=== PATIENT | female | born 1950 | race Caucasian/White ===

== ENCOUNTER → 2016-07-03 | Outpatient (CLI) | payer OTHER ==
[~2016-07-03] MED LIST: ACET-1138 PO; ACT/30 PO; ASPEC325 PO; ATEN50TA PO; FOLI1TAB7 PO; FRRG PO; FURO-85 PO; GLIM4TAB PO; LEVO125T5 PO; LSN/2025 PO; PANT1TAB48 PO; POTA20TA16 PO; RXC5 PO; VITAMIN B12 PO; VITAMIN B6 PO; immodium PO
[2016-07-03 12:07] LABS: HEMATOCRIT 45.6 % (37-47); MEAN CELL VOLUME 89.4 fL (80-100); MEAN CORPUSCULAR HGB CONC 32.5 g/dl (32-36); MEAN PLATELET VOLUME 9.4 fL (7.4-10.4); PLATELET COUNT 300 K/uL (130-400); WHITE BLOOD COUNT 9.41 K/uL (4.8-10.8)
[2016-07-03 12:19] LABS: ESTIMATED AVERAGE GLUCOSE 183 mg/dl; HA1C FLAG Normal (Normal)
[2016-07-03 12:36] LABS: ALT/SGPT 24 U/L (12-78); AST/SGOT 18 U/L (15-37); BLOOD UREA NITROGEN 20 mg/dl (7-18); BUN/CREATININE RATIO 20.4 (10-20); CALCIUM 9.3 mg/dl (8.5-10.1); CARBON DIOXIDE 28 mmol/L (21-32); CHLORIDE 106 mmol/L (98-107); GLUCOSE 183 mg/dl (70-99); POTASSIUM 4.4 mmol/L (3.5-5.1); SODIUM 141 mmol/L (136-145)
[2016-07-03 12:46] LABS: ALB/GLOB RATIO 0.8 (0.9-2); ALKALINE PHOSPHATASE 123 U/L (45-117)
== END | disposition home or self-care (01) ==
LOC: C.LAB1850 10:18
PROVIDERS: ATTEND Internal Medicine
DX: I10 Essential (primary) hypertension (principal); E03.9 Hypothyroidism, unspecified; E87.6 Hypokalemia; D64.9 Anemia, unspecified; E11.65 Type 2 diabetes mellitus with hyperglycemia

== ENCOUNTER → 2016-09-14 | Outpatient (CLI) | payer OTHER ==
[~2016-09-14] MED LIST changes: +LEVO125T4 PO; -LEVO125T5 PO
== END | disposition home or self-care (01) ==
LOC: C.LAB1850 16:30
PROVIDERS: ATTEND Internal Medicine
DX: M10.9 Gout, unspecified (principal)

== ENCOUNTER → 2016-11-24 | Outpatient (CLI) | payer OTHER ==
[2016-11-24 12:30] LABS: HEMATOCRIT 43.8 % (37-47); MEAN CELL VOLUME 86.2 fL (80-100); MEAN CORPUSCULAR HEMOGLOBIN 30.1 pg (25-34); MEAN CORPUSCULAR HGB CONC 34.9 g/dl (32-36); MEAN PLATELET VOLUME 9.6 fL (7.4-10.4); PLATELET COUNT 304 K/uL (130-400); RED BLOOD COUNT 5.08 M/uL (4.2-5.4); WHITE BLOOD COUNT 9.69 K/uL (4.8-10.8)
[2016-11-24 12:45] LABS: ESTIMATED AVERAGE GLUCOSE 197 mg/dl; HA1C FLAG Normal (Normal)
[2016-11-24 16:50] LABS: ALT/SGPT 22 U/L (12-78); AST/SGOT 19 U/L (15-37); BLOOD UREA NITROGEN 18 mg/dl (7-18); BUN/CREATININE RATIO 16.1 (10-20); CALCIUM 9.4 mg/dl (8.5-10.1); CARBON DIOXIDE 24 mmol/L (21-32); CHLORIDE 105 mmol/L (98-107); CHOLESTEROL 144 mg/dl (0-200); GLUCOSE 161 mg/dl (70-99); POTASSIUM 3.7 mmol/L (3.5-5.1); SODIUM 139 mmol/L (136-145); TRIGLYCERIDES 136 mg/dl (0-150); VERY LOW DENSITY LIPOPROT CALC 27 mg/dl
[2016-11-24 17:00] LABS: ALB/GLOB RATIO 0.8 (0.9-2); ALKALINE PHOSPHATASE 122 U/L (45-117); CHOLESTEROL/HDL RATIO 3.7; HDL CHOLESTEROL 39 mg/dl; LDL CHOLESTEROL CALCULATED 78 mg/dl
== END | disposition home or self-care (01) ==
LOC: C.LABBFT 11:16
PROVIDERS: ATTEND Internal Medicine
DX: E11.65 Type 2 diabetes mellitus with hyperglycemia (principal)

== ENCOUNTER → 2017-04-17 | Outpatient (CLI) | payer OTHER ==
[~2017-04-17] MED LIST changes: -FOLI1TAB7 PO; +FOLI1TAB8 PO; -LEVO125T4 PO; +LEVO125T5 PO; +PANT1TAB3 PO; -PANT1TAB48 PO
[2017-04-17 13:21] LABS: HEMOGLOBIN A1C 7.1 % (4.5-5.6)
[2017-04-17 13:27] LABS: BASO % 0.7 %; BASO ABS # 0.06 K/uL (0-0.2); EOS % 3.6 %; EOS ABS # 0.31 K/uL (0-0.5); HEMATOCRIT 43.4 % (37-47); HEMOGLOBIN 14.8 g/dL (12.0-16.0); IG# 0.02 K/uL (0.00-0.02); LYMPH % 28.9 %; LYMPH ABS # 2.48 K/uL (1.2-3.4); MEAN CORPUSCULAR HEMOGLOBIN 29.7 pg (25-34); MEAN CORPUSCULAR HGB CONC 34.1 g/dl (32-36); MEAN PLATELET VOLUME 9.5 fL (7.4-10.4); MONO % 7.9 %; MONO ABS # 0.68 K/uL (0.11-0.59); NEUT % 58.7 %; NEUT ABS # 5.04 K/uL (1.4-6.5); PLATELET COUNT 305 K/uL (130-400); RED CELL DISTRIBUTION WIDTH CV 14.1 % (11.5-14.5); RED CELL DISTRIBUTION WIDTH SD 44.6 fL (36.4-46.3); WHITE BLOOD COUNT 8.59 K/uL (4.8-10.8)
[2017-04-17 13:57] LABS: ALBUMIN 3.5 gm/dl (3.4-5.0); ALKALINE PHOSPHATASE 113 U/L (45-117); ALT/SGPT 27 U/L (12-78); AST/SGOT 19 U/L (15-37); BLOOD UREA NITROGEN 18 mg/dl (7-18); CALCIUM 9.2 mg/dl (8.5-10.1); CARBON DIOXIDE 24 mmol/L (21-32); CREATININE 0.93 mg/dl (0.60-1.20); GLUCOSE 106 mg/dl (70-99); POTASSIUM 3.4 mmol/L (3.5-5.1); SODIUM 138 mmol/L (136-145)
[2017-04-17 14:08] LABS: CHOLESTEROL 129 mg/dl (0-200); LDL CHOLESTEROL CALCULATED 63 mg/dl; TOTAL PROTEIN 8.1 gm/dl (6.4-8.2)
== END | disposition home or self-care (01) ==
LOC: C.LABBFT 10:38
PROVIDERS: ATTEND Internal Medicine
DX: E11.41 Type 2 diabetes mellitus with diabetic mononeuropathy (principal)

== ENCOUNTER → 2017-04-19 | Outpatient (CLI) | payer OTHER ==
[2017-04-19 13:39] LABS: CREATININE RANDOM URINE 79.4 mg/dl
== END | disposition home or self-care (01) ==
LOC: C.LABSPEC 10:55
PROVIDERS: ATTEND Internal Medicine
DX: E11.41 Type 2 diabetes mellitus with diabetic mononeuropathy (principal)

== ENCOUNTER 2022-03-01 09:34 | Inpatient (IN) ==
--- NOTE | 2022-03-01 09:38 | Emergency Department Note ---
Impression & Plan Atrial fibrillation with rapid ventricular response, Hypomagnesemia ED Provider Note NAME: ARIEL ARZOLA AGE: 71 SEX: F : 1950 ARRIVES VIA: Walk-In INFORMANT: Patient, ED PROVIDER(S): Nitin Salvador MD Chief Complaint: A. fib HPI: Patient presents due to concern for A. fib that was encountered while the patient did have a colonoscopy earlier today. The patient has been having some rectal bleeding and was told postprocedure that this likely was from hemorrhoids. No concerning findings per patient. The patient is not been eating or drinking much in the last 24 hours and has been using bowel prep. Patient states that she is also been transitioned from her metoprolol which she had been taking 25 mg metoprolol tartrate twice daily but is currently taking once daily. Patient Nu[place] any chest pain shortness of breath nausea or vomiting. No prior history of heart or lung disease or heart failure. Patient denies any prior history of arrhythmia. Patient denies any infectious symptoms. The isaura ent was noted to be in A. fib during her procedure and did receive some IV Lopressor and esmolol. Patient was referred here for further evaluation and treatment as this is a first-time episode. The patient states that she had been transitioning from her metoprolol to lisinopril for hypertension. ROS: See HPI for pertinent positives and negatives. A total of 10 systems were reviewed and otherwise negative. Past medical history: See below Surgical history: See below Social history: See below Physical Exam: GENERAL: NAD, wearing a mask, non-toxic. EYE EXAM: Normal conjunctiva. PERRL, no anisocoria and EOM's grossly intact w/o pain. NECK: Supple, no nuchal rigidity, no adenopathy, non-tender. No signs of meningismus. FROM of the neck with good chin to chest and neck extension. No stridor. LUNGS: Clear to auscultation. Normal chest wall mechanics. HEART: Tachycardic and irregularly irregular, no MRG. ABDOMEN: Abdomen soft, non-tender, normo-active bowel sounds, no masses, no rebound or guarding. BACK: No CVA TTP. SKIN: No rashes and no bruising. UPPER EXTREMITIES: Upper extremities are grossly normal. LOWER EXTREMITIES: Grossly normal, no edema. Negative Homans' sign bilaterally. NEURO EXAM: A&O x3, cranial nerves II-XII grossly intact, normal speech, moves all 4 extremities. Differential diagnoses: Premature contractions, electrolyte abnormality, cardiac dysrhythmia, thyroid dysfunction, pulmonary embolism, infection, gastrointestinal, as well as other pathologies. Course: Patient was seen and evaluated the bedside. Full history physical exam was performed. EKG interpreted by me A. fib with RVR, rate of 129, normal QRS, long QTC, left axis deviation, no obvious ST elevations. Imaging Studies: See Below Cardiac monitoring: An order was placed for continuous cardiac monitoring. The monitor shows a rate of 119 with tachycardic and irregular rhythm. MDM: Patient presented due to concern for A. fib. Blood work is obtained along with an EKG troponin chest x-ray. The patient was ordered IV fluids and Lopressor. The patient's blood work showed normal white count H&H and platelet count. Kidney function unremarkable. Mild hypomagnesemia. Troponin was added. Not elevated. EKG does show A. fib. The patient did have some mild improvement in her rate. I did speak the on-call hospitalist OMAR Mcrae and the patient was admitted by Dr. Durán. I did review the colonoscopy report from Dr. Hadley from earlier today. Colonoscopy report shows nonbleeding internal hemorrhoids and several random biopsies were obtained. I did discuss that the patient did not have absolute contraindications after colonoscopy did not receive heparin. This was ordered. The patient has no abdominal pain no current rectal bleeding. Patient was admitted to the medicine service by Dr. Durán. Critical Care: I have personally spent 44 minutes of critical care time in direct management of this patient. This includes bedside care, interpretation of diagnostic studies, and testing, discussion with consultants, patient, and family members, and other require inpatient management activities. This 44 minutes is in excess of all separately billable procedures. Past Med/Surg History Medical History Deep vein thrombosis 8 YEARS AGO S/P FALLING WITH BRUISING *ON LOVENOX AND COUMADIN FOR SHORT TERM TX Diabetes mellitus, type 2 EKG, abnormal HX OF (CONGENITAL PROBLEM) NO CUSTOMIZER GERD (gastroesophageal reflux disease) Glaucoma History of kidney stones History of recurrent UTIs "CAUSED FROM [place]" RECENTLY STOPPED TAKING Hx of peptic ulcer Hypertension Hypomagnesemia Hypothyroidism New onset atrial fibrillation Osteoarthritis Peripheral neuropathy Pyelonephritis Seasonal allergies Sinus bradycardia Sleep apnea PT DENIES Vaginal mass vaginal erosion, treated with estrogen cream Surgical History H/O colonoscopy with polypectomy H/O eye surgery RT/LEFT EYE FOR ELEVATED PRESSURE History of bilateral tubal ligation History of bladder surgery BLADDER TACK History of cataract surgery RT/LEFT History of cholecystectomy History of dilatation and curettage History of esophagogastroduodenoscopy (EGD) History of herniorrhaphy History of repair of rotator cuff LEFT History of tooth extraction History of total hysterectomy with bilateral salpingo-oophorectomy (BSO) History of total knee replacement RT S/P fine needle aspiration left breast- fat necrosis 01/2007 Family History Mother Parkinson disease Diabetes Colorectal cancer Hypertension Cancer Grandmother (Maternal) Diabetes Sister Arthritis Father Myelodysplastic syndrome Hypertension Heart disease Grandmother Stroke Denies family history of Ovarian cancer No family history of adverse response to anesthesia No family history of bleeding disorder Allergies Breast cancer Asthma Social History Smoking Status: Never smoker Second Hand Exposure: Yes (HX OF); Hx Alcohol Use: Yes Alcohol type: wine and hard liquor Alcohol Intake Frequency Comment: Very rarely per new patient form Hx Substance Use: No Preferred Language: Marshallese Communication Ability: Effective Mold Repair Technician Required: No Beliefs That Will Affect Care: None marital status: Current Living Situation: Alone current occupational status: retired How many Children do You have: 2 Feels Safe at Home: Yes Assistive Devices: Denture - Upper, Denture - Lower and Glasses Allergies Allergies Allergy/AdvReac Type Severity Reaction Status Date / Time amlodipine [From Norvas] Allergy Intermediate Palpitation Verified 03/01/22 07:47 s olmesartan Allergy Intermediate lips face Verified 03/01/22 07:47 and fingers swollen Avandia TABS Allergy SWELLING Uncoded 03/01/22 07:47 Home Meds Home Medications Medication Instructions Recorded Confirmed acetaminophen 500 mg tablet 500 mg PO Q6H PRN Pain 08/10/21 03/01/22 (Tylenol Extra Strength) glimepiride 4 mg tablet 4 mg PO DAILY 01/18/22 03/01/22 metoprolol tartrate 25 mg tablet 25 mg PO DAILY 01/18/22 03/01/22 rosuvastatin 10 mg tablet 5 mg PO DAILY 01/18/22 03/01/22 liraglutide 0.6 mg/0.1 mL (18 mg/3 1.8 mg subcut QAM 02/22/22 03/01/22 mL) subcutaneous pen injector (Pigeonly 3-Sudhir) [id number] 5 mg-zeaxanth 1 cap PO QAM 02/22/22 03/01/22 1 mg-bilberry 7.5 mg-herbal capsule ([facility] Formula) Previous Rx's Medication Instructions Recorded blood sugar diagnostic (OneTouch #200 ea 04/25/21 Verio test strips) pantoprazole 40 mg tablet,delayed 40 mg PO DAILY #90 tabs 05/16/21 release levothyroxine 125 mcg tablet 125 mcg PO DAILY #90 tabs 06/15/21 estradiol 0.01% (0.1 mg/gram) 1 g vaginal .COMPLEX #42.5 grams 06/23/21 vaginal cream blood-glucose meter (OneTouch #1 ea 07/07/21 Verio IQ Meter kit) lancets (OneTouch UltraSoft #200 ea 07/07/21 Lancets) Results & Data (ED) Vital Signs Vital Signs - 24 hr 03/01/22 09:45 03/01/22 09:45 03/01/22 09:45 Temperature 36.8 C Temperature Source Oral Pulse Rate 113 H Pulse Rate [Apical] 116 H Pulse Rate from SpO2 Sensor Pulse Rhythm Respiratory Rate 20 20 Respiratory Effort / Characteristics Non-Labored Spontaneous Non-Labored Spontaneous Respiratory Depth Normal Normal Respiratory Pattern Regular Regular Blood Pressure 142/106 H Blood Pressure [Right Arm] 142/106 H Blood Pressure Mean 118 Blood Pressure Mean [Right Arm] 118 Pulse Oximetry 95 96 97 Oxygen Delivery Method Room Air Room Air Room Air Sepsis Recent Fever Within 48 Hours No Sepsis New/Unexplained Change in Mental Status No Sepsis Action Taken by Nursing No Action Required 03/01/22 10:09 03/01/22 09:39 03/01/22 10:00 Temperature Temperature Source Pulse Rate 137 H 122 H Pulse Rate [Apical] Pulse Rate from SpO2 Sensor 127 H Pulse Rhythm Respiratory Rate 24 Respiratory Effort / Characteristics Respiratory Depth Respiratory Pattern Blood Pressure 150/94 H 122/96 Blood Pressure [Right Arm] Blood Pressure Mean 104 Blood Pressure Mean [Right Arm] Pulse Oximetry 95 Oxygen Delivery Method Sepsis Recent Fever Within 48 Hours Sepsis New/Unexplained Change in Mental Status Sepsis Action Taken by Nursing 03/01/22 10:00 03/01/22 10:06 03/01/22 10:06 Temperature Temperature Source Pulse Rate 126 H 123 H Pulse Rate [Apical] Pulse Rate from SpO2 Sensor 128 H 128 H Pulse Rhythm Respiratory Rate 17 19 Respiratory Effort / Characteristics Respiratory Depth Respiratory Pattern Blood Pressure 150/94 H Blood Pressure [Right Arm] Blood Pressure Mean 112 Blood Pressure Mean [Right Arm] Pulse Oximetry 99 97 Oxygen Delivery Method Sepsis Recent Fever Within 48 Hours Sepsis New/Unexplained Change in Mental Status Sepsis Action Taken by Nursing 03/01/22 10:12 03/01/22 10:12 03/01/22 10:14 Temperature Temperature Source Pulse Rate 128 H 125 H Pulse Rate [Apical] Pulse Rate from SpO2 Sensor 115 H 111 H Pulse Rhythm Respiratory Rate 18 15 Respiratory Effort / Characteristics Respiratory Depth Respiratory Pattern Blood Pressure 112/92 Blood Pressure [Right Arm] Blood Pressure Mean 98 Blood Pressure Mean [Right Arm] Pulse Oximetry 97 94 Oxygen Delivery Method Sepsis Recent Fever Within 48 Hours Sepsis New/Unexplained Change in Mental Status Sepsis Action Taken by Nursing 03/01/22 10:14 03/01/22 10:30 03/01/22 10:30 Temperature Temperature Source Pulse Rate 134 H Pulse Rate [Apical] Pulse Rate from SpO2 Sensor 120 H Pulse Rhythm Respiratory Rate 17 Respiratory Effort / Characteristics Respiratory Depth Respiratory Pattern Blood Pressure 104/81 132/108 H Blood Pressure [Right Arm] Blood Pressure Mean 88 116 Blood Pressure Mean [Right Arm] Pulse Oximetry 91 Oxygen Delivery Method Sepsis Recent Fever Within 48 Hours Sepsis New/Unexplained Change in Mental Status Sepsis Action Taken by Nursing 03/01/22 10:48 03/01/22 10:48 03/01/22 11:00 Temperature Temperature Source Pulse Rate 130 H Pulse Rate [Apical] Pulse Rate from SpO2 Sensor 132 H Pulse Rhythm Respiratory Rate 19 Respiratory Effort / Characteristics Respiratory Depth Respiratory Pattern Blood Pressure 147/88 H 122/103 H Blood Pressure [Right Arm] Blood Pressure Mean 107 109 Blood Pressure Mean [Right Arm] Pulse Oximetry 100 Oxygen Delivery Method Sepsis Recent Fever Within 48 Hours Sepsis New/Unexplained Change in Mental Status Sepsis Action Taken by Nursing 03/01/22 11:00 03/01/22 11:35 03/01/22 11:31 Temperature Temperature Source Pulse Rate 129 H 107 H Pulse Rate [Apical] Pulse Rate from SpO2 Sensor 125 H Pulse Rhythm Regular Respiratory Rate 16 Respiratory Effort / Characteristics Respiratory Depth Respiratory Pattern Blood Pressure 148/95 H Blood Pressure [Right Arm] Blood Pressure Mean 112 Blood Pressure Mean [Right Arm] Pulse Oximetry 96 97 Oxygen Delivery Method Room Air Sepsis Recent Fever Within 48 Hours Sepsis New/Unexplained Change in Mental Status Sepsis Action Taken by Nursing 03/01/22 11:31 03/01/22 12:00 03/01/22 12:00 Temperature Temperature Source Pulse Rate 116 H 137 H Pulse Rate [Apical] Pulse Rate from SpO2 Sensor 119 H 130 H Pulse Rhythm Respiratory Rate 17 20 Respiratory Effort / Characteristics Respiratory Depth Respiratory Pattern Blood Pressure 144/98 H Blood Pressure [Right Arm] Blood Pressure Mean 113 Blood Pressure Mean [Right Arm] Pulse Oximetry 98 97 Oxygen Delivery Method Sepsis Recent Fever Within 48 Hours Sepsis New/Unexplained Change in Mental Status Sepsis Action Taken by Nursing 03/01/22 12:51 03/01/22 12:30 03/01/22 12:30 Temperature Temperature Source Pulse Rate 115 H 130 H Pulse Rate [Apical] Pulse Rate from SpO2 Sensor 129 H Pulse Rhythm Respiratory Rate 20 Respiratory Effort / Characteristics Respiratory Depth Respiratory Pattern Blood Pressure 126/94 103/84 Blood Pressure [Right Arm] Blood Pressure Mean 90 Blood Pressure Mean [Right Arm] Pulse Oximetry 97 Oxygen Delivery Method Sepsis Recent Fever Within 48 Hours Sepsis New/Unexplained Change in Mental Status Sepsis Action Taken by Nursing 03/01/22 12:36 03/01/22 12:36 03/01/22 13:02 Temperature Temperature Source Pulse Rate 137 H Pulse Rate [Apical] Pulse Rate from SpO2 Sensor 139 H Pulse Rhythm Respiratory Rate 18 Respiratory Effort / Characteristics Respiratory Depth Respiratory Pattern Blood Pressure 126/94 125/100 Blood Pressure [Right Arm] Blood Pressure Mean 104 108 Blood Pressure Mean [Right Arm] Pulse Oximetry 98 Oxygen Delivery Method Sepsis Recent Fever Within 48 Hours Sepsis New/Unexplained Change in Mental Status Sepsis Action Taken by Nursing 03/01/22 13:02 03/01/22 13:30 03/01/22 13:30 Temperature Temperature Source Pulse Rate 114 H 120 H Pulse Rate [Apical] Pulse Rate from SpO2 Sensor 110 H 129 H Pulse Rhythm Respiratory Rate 16 22 Respiratory Effort / Characteristics Respiratory Depth Respiratory Pattern Blood Pressure 145/97 H Blood Pressure [Right Arm] Blood Pressure Mean 113 Blood Pressure Mean [Right Arm] Pulse Oximetry 98 97 Oxygen Delivery Method Sepsis Recent Fever Within 48 Hours Sepsis New/Unexplained Change in Mental Status Sepsis Action Taken by Nursing 03/01/22 14:01 03/01/22 14:01 Temperature Temperature Source Pulse Rate 119 H Pulse Rate [Apical] Pulse Rate from SpO2 Sensor 121 H Pulse Rhythm Respiratory Rate 22 Respiratory Effort / Characteristics Respiratory Depth Respiratory Pattern Blood Pressure 122/75 Blood Pressure [Right Arm] Blood Pressure Mean 90 Blood Pressure Mean [Right Arm] Pulse Oximetry 95 Oxygen Delivery Method Sepsis Recent Fever Within 48 Hours Sepsis New/Unexplained Change in Mental Status Sepsis Action Taken by Usp Medications Current Medication List: was personally reviewed by me Laboratory Data Attestation: I reviewed the patient's lab results. Result diagrams: 03/01/22 09:49 03/01/22 09:49 Lab Results 03/01/22 03/01/22 03/01/22 Range/Units 09:49 09:49 09:49 WBC 9.38 (4.8-10.8) K/ul RBC 4.73 (3.93-5.22) M/uL Hgb 13.8 (12.0-16.0) g/dl Hct 40.7 (34.1-44.9) % MCV 86.0 (80.0-100.0) fL MCH 29.2 (25.0-34.0) pg MCHC 33.9 (32.0-36.0) g/dL RDW Std Deviation 42.5 (36.4-46.3) fL RDW Coeff of Devendra 13.5 (11.5-14.5) % Plt Count 241 (130-400) K/uL MPV 9.1 L (9.4-12.3) fL Immature Gran % (Auto) 0.2 % Neut % (Auto) 70.2 % Lymph % (Auto) 21.6 % Cataño % (Auto) 6.2 % Eos % (Auto) 1.3 % Baso % (Auto) 0.5 % Neut # (Auto) 6.58 H (1.4-6.5) K/uL Lymph # (Auto) 2.03 (1.2-3.4) K/uL Cataño # (Auto) 0.58 (0.24-0.82) K/uL Eos # (Auto) 0.12 (0-0.50) K/uL Baso # (Auto) 0.05 (0-0.2) K/uL Immature Gran # (Auto) 0.02 (0.00-0.02) K/uL PT 11.2 (9.0-12.0) Seconds INR 1.1 (0.9-1.1) APTT 21.8 (21.0-31.0) Seconds PTT Ratio 0.8 Sodium 138 (136-145) mmol/L Potassium 4.0 (3.5-5.1) mmol/L Chloride 103 (98-107) mmol/L Carbon Dioxide 27 (21-32) mmol/L Anion Gap 8 (3-11) BUN 14 (6-23) mg/dl Creatinine 0.74 (0.6-1.2) mg/dl Est Cr Clr Drug Dosing Not Reportable Est GFR ( Amer) 94.5 ml/min Est GFR (Non-Af Amer) 81.5 ml/min BUN/Creatinine Ratio 18.9 (10-20) Glucose 163 H (70-99(Fasting)) mg/dl Calcium 9.2 (8.5-10.1) mg/dl Phosphorus 3.2 (2.5-4.9) mg/dl Magnesium 1.4 L (1.7-2.4) mg/dl Total Bilirubin 0.9 (0.2-1.0) mg/dl AST 18 (13-39) U/L ALT 13 (7-52) U/L Alkaline Phosphatase 93 (34-104) U/L Troponin I High Sens (0-14) pg/ml Total Protein 7.9 (6.0-8.3) gm/dl Albumin 3.8 (3.4-5.0) gm/dl Globulin 4.1 H (2.5-4.0) gm/dl Albumin/Globulin Ratio 0.9 (0.9-2) TSH (0.300-4.500) uIu/ml SARS-CoV-2, RNA, NAAT (NEGATIVE) 03/01/22 03/01/22 03/01/22 Range/Units 09:49 11:30 11:57 WBC (4.8-10.8) K/ul RBC (3.93-5.22) M/uL Hgb (12.0-16.0) g/dl Hct (34.1-44.9) % MCV (80.0-100.0) fL MCH (25.0-34.0) pg MCHC (32.0-36.0) g/dL RDW Std Deviation (36.4-46.3) fL RDW Coeff of Devendra (11.5-14.5) % Plt Count (130-400) K/uL MPV (9.4-12.3) fL Immature Gran % (Auto) % Neut % (Auto) % Lymph % (Auto) % Cataño % (Auto) % Eos % (Auto) % Baso % (Auto) % Neut # (Auto) (1.4-6.5) K/uL Lymph # (Auto) (1.2-3.4) K/uL Cataño # (Auto) (0.24-0.82) K/uL Eos # (Auto) (0-0.50) K/uL Baso # (Auto) (0-0.2) K/uL Immature Gran # (Auto) (0.00-0.02) K/uL PT (9.0-12.0) Seconds INR (0.9-1.1) APTT (21.0-31.0) Seconds PTT Ratio Sodium (136-145) mmol/L Potassium (3.5-5.1) mmol/L Chloride (98-107) mmol/L Carbon Dioxide (21-32) mmol/L Anion Gap (3-11) BUN (6-23) mg/dl Creatinine (0.6-1.2) mg/dl Est Cr Clr Drug Dosing Est GFR ( Amer) ml/min Est GFR (Non-Af Amer) ml/min BUN/Creatinine Ratio (10-20) Glucose (70-99(Fasting)) mg/dl Calcium (8.5-10.1) mg/dl Phosphorus (2.5-4.9) mg/dl Magnesium (1.7-2.4) mg/dl Total Bilirubin (0.2-1.0) mg/dl AST (13-39) U/L ALT (7-52) U/L Alkaline Phosphatase (34-104) U/L Troponin I High Sens 7.7 (0-14) pg/ml Total Protein (6.0-8.3) gm/dl Albumin (3.4-5.0) gm/dl Globulin (2.5-4.0) gm/dl Albumin/Globulin Ratio (0.9-2) TSH 0.807 (0.300-4.500) uIu/ml SARS-CoV-2, RNA, NAAT NEGATIVE (NEGATIVE) Administered Medications Heparin Sodium/Dextrose (Heparin Sodium/Dextrose) 25,000 units in 500 mls @ 29 mls/hr IV .[id number] BRITTNEY; Protocol Stop: 03/31/22 12:14 Last Admin: 03/01/22 12:54 Dose: 1,450 units/hr, 29 mls/hr Documented By: JANN Co-signed By: ANA Discontinued Medications Heparin Sodium/Dextrose (Heparin Iv Adult Wt-Based Standard *No* Bolus Protocol) 1 each IV ONE ONE; Protocol Stop: 03/01/22 11:47 Last Admin: 03/01/22 13:04 Dose: 1 each Documented By: JANN Sodium Chloride (Nss 1000ml) 1,000 mls @ 999 mls/hr IV .[id number] STA Stop: 03/01/22 10:56 Last Infusion: 03/01/22 11:17 Dose: 0 mls/hr Documented By: Admin: 03/01/22 10:08 Dose: 999 mls/hr Documented By: BI Magnesium Sulfate/Dextrose (Magnesium Sulfate / D5w) 1 gm in 100 mls @ 50 mls/hr IV ONE ONE Stop: 03/01/22 13:37 Last Admin: 03/01/22 12:51 Dose: 50 mls/hr Documented By: JANN Sodium Chloride (Nss 1000ml) 500 mls @ 999 mls/hr IV .Q31M ONE Stop: 03/01/22 12:17 Last Infusion: 03/01/22 13:22 Dose: 0 mls/hr Documented By: Admin: 03/01/22 12:51 Dose: 999 mls/hr Documented By: JANN Metoprolol Tartrate (Metoprolol Tartrate 1 Mg/Ml Vial) 5 mg IV Q5M PRN PRN Reason: Tachycardia Stop: 03/31/22 09:55 Last Admin: 03/01/22 12:51 Dose: 5 mg Documented By: Admin: 03/01/22 10:09 Dose: 5 mg Documented By: BI Imaging Data Radiologist's Impression: Chest X-Ray 03/01/22 09:56 XR chest 1V portable CLINICAL HISTORY: Dysrhythmia. COMPARISON STUDY: Chest radiograph August 10, 2021. FINDINGS: Lung volumes are normal. Lungs are clear. There is no pneumothorax or pleural effusion. Cardiac size is normal. Mediastinal contours are normal. There is no evidence for pulmonary edema. IMPRESSION: No acute cardiopulmonary findings. ACT 112: Negative or not required by law. Electronically signed by: Jf Haider M.D. 03/01/2022 10:37 AM Discharge Plan Visit Data Chief Complaint: Cardiac Assessment Stated Complaint: CARDIAC ASSESSMENT ED Provider: Nitin Salvador Discharge Problem: Atrial fibrillation with rapid ventricular response, Hypomagnesemia Patient Disposition: Admitted As Inpatient Forms Stand Alone Forms: [facility] Prescriptions Prescriptions: No Action (DME) OneTouch Verio test strips Strip See Rx Instructions .ROUTE .MEDSUPPLY Qty: 200 3RF Rx Instructions: Test blood sugar twice daily pantoprazole 40 mg tablet,delayed release (DR/EC) 40 mg PO DAILY Qty: 90 3RF Label Comments: QAM levothyroxine 125 mcg tablet 125 mcg PO DAILY Qty: 90 0RF estradiol 0.01 % (0.1 mg/gram) cream 1 g vaginal .COMPLEX Qty: 42.5 2RF Rx Instructions: 2 days per week vaginally. (DME) blood-glucose meter [OneTouch Verio IQ Meter] Kit See Rx Instructions .Route Qty: 1 0RF Rx Instructions: Check blood glucose once daily (DME) lancets [OneTouch UltraSoft Lancets] Misc See Rx Instructions .ROUTE .MEDSUPPLY Qty: 200 3RF Rx Instructions: Test blood sugar twice daily glimepiride 4 mg tablet 4 mg PO DAILY Label Comments: QAM rosuvastatin 10 mg tablet 5 mg PO DAILY Label Comments: QAM metoprolol tartrate 25 mg tablet 25 mg PO DAILY acetaminophen [Tylenol Extra Strength] 500 mg Tablet 500 mg PO Q6H PRN (Reason: Pain) Victoza 3-Sudhir 0.6 mg/0.1 mL (18 mg/3 mL) Pen Injector 1.8 mg SUBCUT QAM [facility] Formula 5-1-7.5 mg Capsule 1 cap PO QAM Referrals Referrals: Kenneth Arvizu, DO [Primary Care Provider] -
[2022-03-01] MEDS ORDERED: SODIUM CHLORIDE 0.9% 1000ML 1,000 ML IV STA (09:56)
[2022-03-01 10:04] LABS: Basophils # (auto) 0.05 K/uL (0-0.2); Basophils % (auto) 0.5 %; Eosinophils # (auto) 0.12 K/uL (0-0.50); Eosinophils % (auto) 1.3 %; Hematocrit (blood only) 40.7 % (34.1-44.9); Hemoglobin 13.8 g/dl (12.0-16.0); Immature Granulocytes # (auto) 0.02 K/uL (0.00-0.02); Immature Granulocytes % (auto) 0.2 %; Lymphocytes # (auto) 2.03 K/uL (1.2-3.4); Lymphocytes % (auto) 21.6 %; Mean Corpuscular Hemoglobin 29.2 pg (25.0-34.0); Mean Corpuscular Hgb Conc 33.9 g/dL (32.0-36.0); Mean Platelet Volume 9.1 fL (9.4-12.3); Monocytes # (auto) 0.58 K/uL (0.24-0.82); Monocytes % (auto) 6.2 %; Neutrophils # (auto) 6.58 K/uL (1.4-6.5); Neutrophils % (auto) 70.2 %; Platelet Count 241 K/uL (130-400); RDW Coefficient of Variation 13.5 % (11.5-14.5); RDW Standard Deviation 42.5 fL (36.4-46.3); Red Blood Count 4.73 M/uL (3.93-5.22); White Blood Count 9.38 K/ul (4.8-10.8)
[2022-03-01] MEDS: METOPROLOL TARTRATE 1 MG/ML VIAL IV PRN ×2 (10:09→12:51)
[2022-03-01 10:16] LABS: INR 1.1 (0.9-1.1); Partial Thromboplastin Ratio 0.8; Partial Thromboplastin Time 21.8 Seconds (21.0-31.0); Prothrombin Time 11.2 Seconds (9.0-12.0)
[2022-03-01 10:34] LABS: Alanine Aminotransferase 13 U/L (7-52); Albumin Globulin Ratio 0.9 (0.9-2); Albumin Level 3.8 gm/dl (3.4-5.0); Alkaline Phosphatase 93 U/L (34-104); Anion Gap 8 (3-11); Aspartate Aminotransferase 18 U/L (13-39); BUN Creatinine Ratio 18.9 (10-20); Bilirubin,Total 0.9 mg/dl (0.2-1.0); Blood Urea Nitrogen 14 mg/dl (6-23); Calcium 9.2 mg/dl (8.5-10.1); Carbon Dioxide 27 mmol/L (21-32); Chloride 103 mmol/L (98-107); Est GFR (African American) 94.5 ml/min; Est GFR (Non-African American) 81.5 ml/min; Globulin 4.1 gm/dl (2.5-4.0); Glucose 163 mg/dl (70-99(Fasting)); Magnesium 1.4 mg/dl (1.7-2.4); Phosphorus 3.2 mg/dl (2.5-4.9); Sodium 138 mmol/L (136-145); Total Protein 7.9 gm/dl (6.0-8.3)
--- NOTE | 2022-03-01 10:39 | XRay Report ---
XR chest 1V portable CLINICAL HISTORY: Dysrhythmia. COMPARISON STUDY: Chest radiograph August 10, 2021. FINDINGS: Lung volumes are normal. Lungs are clear. There is no pneumothorax or pleural effusion. Car diac size is normal. Mediastinal contours are normal. There is no evidence for pulmonary edema. IMPRESSION: No acute cardiopulmonary findings. ACT 112: Negative or not required by law. Electronically signed by: Jf Haider M.D. 03/01/2022 10:37 AM
[2022-03-01] MEDS ORDERED: POLYETHYLENE (MIRALAX) 17 GM PACK PO PRN (11:34)
[2022-03-01] MEDS ORDERED: MAGNESIUM HYDROXIDE SUSP 30 ML UDC PO PRN (11:34)
[2022-03-01] MEDS ORDERED: ALUMINUM/MAGNESIUM SUSP 30 ML UDC PO PRN (11:34)
[2022-03-01] MEDS ORDERED: ACETAMINOPHEN 325 MG TAB PO PRN (11:34)
[2022-03-01] MEDS ORDERED: ONDANSETRON INJ 2 MG/ML 2 ML VIAL IV PRN (11:34)
--- NOTE | 2022-03-01 11:34 | History & Physical Report ---
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 metoprolol 5 mg IV x2. No signs of leukocytosis. hypomagnesemia Mg+ 1.4; will replace. This could be related to her colonoscopy procedure, dehydration since she was n.p.o. or alteration with her hypertension medications recently. She was taking metoprolol 25 mg p.o. twice daily and last Saturday 02/24 she was decreased to 25 mg p.o. daily with a goal to transition to lisinopril however she has not started the lisinopril yet. Anticoagulation, rate control and possibly antiarrhythmics as goal with cardiology support. New onset Atrial Fibrillation: Hypomagnesemia: While receiving colonoscopy; Received IV Lopressor and Esmolol during colonoscopy EKG in ED: AF with RVR 129. has received IV Metoprolol 5 mg IV x2 in ED; will reevaluate CHADS score: 2 CXR negative No syncope Mg+/K+: 1.4/4.0; 1 G Mg+ ordered; will trend in AM No leukocytosis; will check UA d/t frequent UTIs ECHO pending; no baseline ECHO in EMR Heparin gtt started in ED Received 1L bolus in ED; will order IVF 100ml/hour x2 bags; reevaluate Cardiology consult pending HTN Takes Metoprolol; 25 mg PO BID on 02/24 decreased to daily dosing with goal of transitioning to Lisinopril as an opt (has not started Lisinopril yet) Did not take Metoprolol this AM HLD Takes Rosuvastatin; continue Lipid Panel: 10/25/2021 TG 152, LDL 87, HDL 38 Recheck in AM DM2: Takes Glipizide at home; will DC while here and place on SSI with ACHS FSBS Recently stopped Invokana and started Victoza on 02/15 Last A1C: 02/15/2022 7.3 Diet: ChO4 and heart healthy Osteoporosis: Recently prescribed Fosamax; has not started yet. Recently prescribed Vitamin D3; has not started yet. Glaucoma: Takes Macular Health PO Hypothyroidism: Takes levothyroxine; continue TSH 10/2021: 0.81 TSH in ED 0.807 GERD: Takes pantoprazole; continue Disposition: PCP: Dr. Arvizu Code Status: Full Code VTE Prophylaxis: Heparin gtt for now I personally was able to review all current laboratory work and diagnostic images obtained in the ED. Additionally, I was able to review the patients past medication reconciliation and history with direct visualization in the patients chart. This patient was seen and collaborated with Dr. Durán please see her addendum for further details. History of Present Illness Chief Complaint: New Onset atrial fibrillation Primary Care Provider: Kenneth Arvizu DO Ms. Lucila Prasad is a 71-year-old female that presented to the [facility] ED, accompanied by her daughter Julieta, as recommended in the colonoscopy suite as she went into a new onset of atrial fibrillation with rapid ventricular rate. Colonoscopy performed by Dr. Hadley revealed nonbleeding internal hemorrhoids, otherwise unremarkable. The patient stated that she was experiencing left lower quadrant pain and a CT abdomen was performed revealing an umbilical hernia. She also noted some blood on her toilet paper which prompted the colonoscopy to be performed. She has stated that she has had recent UTIs, for this past year and she was just recently treated for 1 finishing antibiotics last . Otherwise no other illnesses to report . She is vaccinated against flu and COVID . Other past medical history includes hypertension, hyperlipidemia, hypothyroidism, osteoarthritis, diabetes mellitus type 2, peripheral neuropathy, LAUREN (not on CPAP) and glaucoma for which she sees Dr. Cottrell at [facility]. Patient denies headache, dizziness, shortness of breath, chest pain, palpitations, visual changes, tinnitus, syncope or near syncope, recent falls, appetite changes, urinary changes, bowel pattern changes, recent trauma. Pat juan denies tobacco use or recreational drug use and has a alcoholic drink socially once a month or so. Patient does live alone at home but plans to stay with her daughter upon discharge. In the ED she has now received metoprolol 5 mg IV x2. No signs of leukocytosis, hypomagnesemia with a mag of 1.4 will replace. This could be related to her colonoscopy procedure, dehydration since she was n.p.o. or alteration with her hypertension medications recently. She was taking metoprolol 25 mg p.o. twice daily and last Saturday 02/24 she was decreased to 25 mg p.o. daily with a goal to transition to lisinopril however she has not started the lisinopril yet. Anticoagulation, rate control and antiarrhythmics as goal with cardiology support. Allergies Allergy/AdvReac Type Severity Reaction Status Date / Time amlodipine [From [facility]] Allergy Intermediate Palpitation Verified 03/01/22 07:47 s olmesartan Allergy Intermediate lips face Verified 03/01/22 07:47 and fingers swollen Avandia TABS Allergy SWELLING Uncoded 03/01/22 07:47 Home Medications Medication Instructions Recorded Confirmed Type blood sugar diagnostic (OneTouch #200 ea 04/25/21 03/01/22 Rx Verio test strips) pantoprazole 40 mg tablet,delayed 40 mg PO DAILY #90 tabs 05/16/21 03/01/22 Rx release levothyroxine 125 mcg tablet 125 mcg PO DAILY #90 tabs 06/15/21 03/01/22 Rx estradiol 0.01% (0.1 mg/gram) 1 g vaginal .COMPLEX #42.5 grams 06/23/21 03/01/22 Rx vaginal cream blood-glucose meter (OneTouch #1 ea 07/07/21 03/01/22 Rx Verio IQ Meter kit) lancets (APJeTTouch UltraSoft #200 ea 07/07/21 03/01/22 Rx Lancets) acetaminophen 500 mg tablet 500 mg PO Q6H PRN Pain 08/10/21 03/01/22 History (Tylenol Extra Strength) glimepiride 4 mg tablet 4 mg PO DAILY 01/18/22 03/01/22 History metoprolol tartrate 25 mg tablet 25 mg PO DAILY 01/18/22 03/01/22 History rosuvastatin 10 mg tablet 5 mg PO DAILY 01/18/22 03/01/22 History liraglutide 0.6 mg/0.1 mL (18 mg/3 1.8 mg subcut QAM 02/22/22 03/01/22 History mL) subcutaneous pen injector (Victoza 3-Sudhir) [id number]-[id number]-vaglqu 5 mg-zeaxanth 1 cap PO QAM 02/22/22 03/01/22 History 1 mg-bilberry 7.5 mg-herbal capsule ([employer] Formula) Past Med/Surg History Medical History Deep vein thrombosis 8 YEARS AGO S/P FALLING WITH BRUISING *ON LOVENOX AND COUMADIN FOR SHORT TERM TX Diabetes mellitus, type 2 EKG, abnormal HX OF (CONGENITAL PROBLEM) NO 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 GERD (gastroesophageal reflux disease) Glaucoma History of kidney stones History of recurrent UTIs "CAUSED FROM INVOKANA" RECENTLY STOPPED TAKING Hx of peptic ulcer Hypertension Hypomagnesemia Hypothyroidism New onset atrial fibrillation Osteoarthritis Peripheral neuropathy Pyelonephritis Seasonal allergies Sinus bradycardia Sleep apnea PT DENIES Vaginal mass vaginal erosion, treated with estrogen cream Surgical History H/O colonoscopy with polypectomy H/O eye surgery RT/LEFT EYE FOR ELEVATED PRESSURE History of bilateral tubal ligation History of bladder surgery BLADDER TACK History of cataract surgery RT/LEFT History of cholecystectomy History of dilatation and curettage History of esophagogastroduodenoscopy (EGD) History of herniorrhaphy History of repair of rotator cuff LEFT History of tooth extraction History of total hysterectomy with bilateral salpingo-oophorectomy (BSO) History of total knee replacement RT S/P fine needle aspiration left breast- fat necrosis 01/2007 Family History Mother Parkinson disease Diabetes Colorectal cancer Hypertension Cancer Grandmother (Maternal) Diabetes Sister Arthritis Father Myelodysplastic syndrome Hypertension Heart disease Grandmother Stroke Denies family history of Ovarian cancer No family history of adverse response to anesthesia No family history of bleeding disorder Allergies Breast cancer Asthma Social History Smoking Status: Never smoker Second Hand Exposure: No; Do You Dip or Chew Tobacco: No; Tobacco Cessation Education Requested by Patient: No Hx Alcohol Use: Yes Alcohol type: wine Alcohol Intake Frequency Comment: Very rarely per new patient form Hx Substance Use: No Preferred Language: German Communication Ability: Effective Rn Intensive Care Unit Required: No Beliefs That Will Affect Care: None marital status: Current Living Situation: Alone current occupational status: retired How many Children do You have: 2 Other Information That Helps Us Care for You: No Feels Safe at Home: Yes Safety Concerns: Feels Safe At This Time Assistive Devices: Brace/Splint/Immobilizer, Contacts, Denture - Upper, Denture - Lower and Glasses Review of Systems Review of Systems: Neuro: (-) Falls, trauma, slurred speech HEENT: (-) LAUREN, dizziness, dysphagia, visual or auditory changes CV: (-) CP, palpitations, swelling Resp: (-) SOB GI: (-) appetite changes, N/V/D, bowel changes : (-) urinary changes. Pt with frequent UTI Skin: (-) rashes Psych: (-) anxiety, depression Physical Exam Physical Exam: Neuro: AAOx4, PERRLA, no aphagia, memory changes, CNII-XII grossly intact HEENT: head normocephalic, moist mucus membranes CV: Irregularly irregular, increased rate (-) M/G/R, (-) edema, cap refill < 3 seconds Resp: Lungs CTA in all cole. On RA GI: Abdomen S/NT/ND, Ax4 bowel sounds, (-) CVA tenderness Musculoskeletal: 5/5 B/L UE strength, 5/5 B/L LE strength. No gait disturbance Skin: (-) rashes , (-) erythema. Psych: euthymic mood Results & Data Results & Data ([facility]) Vital Signs (Past 12 Hours) Vital Signs Temp Pulse Pulse Resp BP BP Pulse Ox 03/01/22 11:00 129 H 16 96 03/01/22 11:00 122/103 H 03/01/22 10:48 130 H 19 100 03/01/22 10:48 147/88 H 03/01/22 10:30 134 H 17 91 03/01/22 10:30 132/108 H 03/01/22 10:14 104/81 03/01/22 10:14 125 H 15 94 03/01/22 10:12 128 H 18 97 03/01/22 10:12 112/92 03/01/22 10:06 123 H 19 97 03/01/22 10:06 150/94 H 03/01/22 10:00 126 H 17 99 03/01/22 10:00 122/96 03/01/22 09:39 122 H 24 95 03/01/22 10:09 137 H 150/94 H 03/01/22 09:45 116 H 20 142/106 H 97 03/01/22 09:45 96 03/01/22 09:45 36.8 C 113 H 20 142/106 H 95 O2 Del Method 03/01/22 11:00 03/01/22 11:00 03/01/22 10:48 03/01/22 10:48 03/01/22 10:30 03/01/22 10:30 03/01/22 10:14 03/01/22 10:14 03/01/22 10:12 03/01/22 10:12 03/01/22 10:06 03/01/22 10:06 03/01/22 10:00 03/01/22 10:00 03/01/22 09:39 03/01/22 10:09 03/01/22 09:45 Room Air 03/01/22 09:45 Room Air 03/01/22 09:45 Room Air Laboratory Results Short CBC 03/01/22 Range/Units 09:49 WBC 9.38 (4.8-10.8) K/ul Hgb 13.8 (12.0-16.0) g/dl Hct 40.7 (34.1-44.9) % Plt Count 241 (130-400) K/uL BMP 03/01/22 09:49 Sodium 138 Potassium 4.0 Chloride 103 Carbon Dioxide 27 BUN 14 Creatinine 0.74 Glucose 163 H Calcium 9.2 Liver Function 03/01/22 Range/Units 09:49 Total Bilirubin 0.9 (0.2-1.0) mg/dl AST 18 (13-39) U/L ALT 13 (7-52) U/L Alkaline Phosphatase 93 (34-104) U/L Albumin 3.8 (3.4-5.0) gm/dl Diagnostic Findings Chest X-Ray 03/01/22 09:56 XR chest 1V portable CLINICAL HISTORY: Dysrhythmia. COMPARISON STUDY: Chest radiograph August 10, 2021. FINDINGS: Lung volumes are normal. Lungs are clear. There is no pneumothorax or pleural effusion. Cardiac size is normal. Mediastinal contours are normal. There is no evidence for pulmonary edema. IMPRESSION: No acute cardiopulmonary findings. ACT 112: Negative or not required by law. Electronically signed by: Jf Haider M.D. 03/01/2022 10:37 AM Code Status & VTE Plan Code Status Full code in the event of cardiac or respiratory arrest VTE Prophylaxis Plan VTE Prophylaxis will be ordered: Yes Supervising Physician Co-Signing Physician Notes 71 yo diabetic obese female presents with new onset atrial fibrillation while under anesthesia during a colonoscopy. She was given intreoperative metoprolol and esmolol and sent over to the ER. She denies any symptoms of chest pain, randolph rtness of breath or palpitations. She reports a stuffy nose and has had ongoing symptoms for the last few days. 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 She denies any further UTI symptoms, and reports chronic loose stools. She reports daily caffeine intake to be two glasses of iced tea and at least one diet pepsi per day. Physical exam reveals an obese female in NAD. HEENT exam reveals normal TM, a difficult to visualize posterior oropharynx but with no overt abnormalities and moist mucous membranes. Cardiac auscultation reveals an irregular rate and rhythm with no murmurs, gallops or rubs heard. Lungs are clear to auscultation throughout. Abdomen is soft, NTND. There is no peripheral edema and no gross focal neuromuscular deficits. Workup in the ER reveals a normal CBC, normal BMP, normal TSH, Mg low at 1.4, trop is negative and there is no evidence of ACS clinically or on EKG. CXR is clear. Overall this is a 71 yo F presenting with new onset atrial fibrillation with rapid ventricular response. She has now been given two doses of Lopressor in the ER with improvement of her rate to 105-115. Will continue to watch on the monitor as we proceed to PCU shortly. Oral metoprolol continued. May need to consider a diltiazem drip if HR is not well controlled. Agree with heparin given CHADS-VASC of 3. She is a confirmed full code. Cont additional management as outlined above. DO Luis Armando
[2022-03-01] MEDS ORDERED: MAGNESIUM SULFATE / D5W 1 GM/100 ML BAG IV ONE (11:38)
[2022-03-01] MEDS ORDERED: Heparin IV Adult Wt-Based Standard *NO* Bolus Protocol IV ONE (11:46)
[2022-03-01] MEDS ORDERED: SODIUM CHLORIDE 0.9% 1000ML 500 ML IV ONE (11:47)
[2022-03-01] MEDS: HEPARIN SODIUM/DEXTROSE 25,000 UNITS/500 ML BAG IV SCH (12:54)
[2022-03-01] MEDS ORDERED: NON-FORMULARY MEDICATION (Estradiol 0.01 % (0.1 mg/gram) cream) PV SCH (13:30)
[2022-03-01] MEDS ORDERED: dilTIAZem HCl 5 MG/ML 5 ML VIAL IV STA (15:43)
[2022-03-01] MEDS ORDERED: STAT IV Infusion **Titration per Protocol STA (15:43)
[2022-03-01] MEDS: dilTIAZem HCL 125 MG in DEXTROSE 5% 100 ML IV SCH ×2 (16:16→23:48)
[2022-03-01] MEDS ORDERED: CARBOHYDRATES FOR HYPOGLYCEMIA PO PRN (16:38)
[2022-03-01] MEDS ORDERED: GLUCAGON FOR INJ 1 MG VIAL SQ PRN (16:38)
[2022-03-01] MEDS ORDERED: GLUCOSE 10 TAB/TUBE PO PRN (16:38)
[2022-03-01] MEDS ORDERED: PHARMACY GLYCEMIC MGMT CONSULT PRN (16:38)
[2022-03-01] MEDS ORDERED: DEXTROSE 50% 50 ML SYRINGE IV PRN (16:38)
[2022-03-01] MEDS ORDERED: GLUCOSE 40% GEL 15 GM TUBE PO PRN (16:38)
--- NOTE | 2022-03-01 17:36 | Pharmacy Report ---
Pharmacy Glycemic Short Note 2 - Date of Service March 01, 2022 - Glycemic Short BSG Results (Last 24 hours): 03/01/22 09:49 Glucose 163 H OUTPATIENT ANTIDIABETIC REGIMEN: * Glimepiride 4 mg PO AM * Victoza 1.8 mg SC AM * HbA1c: 7.3% (02/15/22) ASSESSMENT: * 71 yo F admitted secondary to new onset atrial fibrillation. Pharmacy has been consulted to assist with inpatient glycemic management. Currently on a heparin and diltiazem drip. Ordered and tolerating a type 2 diet. * Serum BSG upon presentation to ED was 163 mg/dL. No further BSGs at this point. Will have RN check now and start with Novolog coverage based on weight/stress of 2. Will start basal based upon weight/stress of 1. PLAN FOR INPATIENT GLYCEMIC CONTROL: * Hold outpatient oral diabetes medications * Basal insulin * Lantus 10 units SC BID * Bolus insulin * NovoLog per scale ACHS or Q6hrs while NPO * Goal Range: Low 110 mg/dL - High 140 mg/dL * Correction Factor: 20 mg/dL/unit * Nutritional / Prandial insulin per carb ratio of 1 unit per 7 grams CHO consumed
[2022-03-01] MEDS: INSULIN ASPART PER UNIT SC SCH ×2 (19:10→20:44)
[2022-03-01 19:47] LABS: Partial Thromboplastin Ratio 1.5; Partial Thromboplastin Time 41.2 Seconds (21.0-31.0)
[2022-03-01] MEDS: SODIUM CHLORIDE 0.9% 1000ML 1,000 ML IV SCH (20:18)
[2022-03-01] MEDS: LANTUS PER UNIT CHARGE SQ SCH (21:04)
[2022-03-01 23:05] LABS: Appearance Urine Turbid (Clear); Bacteria Urine Automated 4+ (Negative); Bilirubin Urine Negative (Negative); Blood Urine 2+ (Negative); Cast Urine Automated 0 /lpf (0-5); Color Urine Yellow; Epithelial Cell Urine Auto >30 /lpf (0-5); Glucose Urine UA Negative (Negative); Ketones Urine Negative (Negative); Leukocyte Esterase Urine 3+ (Negative); Nitrite Urine Positive (Negative); Protein Urine Trace (Negative); Specific Gravity Urine 1.011 (1.000-1.030); Urobilinogen Urine Negative (Negative); WBC Urine Automated >30 /hpf (0-5); pH Urine 5.5 (4.5-7.5)
[2022-03-02] MEDS: cefTRIAXone SODIUM 2,000 MG in DEXTROSE 5% 50 ML IV SCH ×2 (01:32→23:54)
[2022-03-02 03:17] LABS: Partial Thromboplastin Ratio 2.2
[2022-03-02 03:24] LABS: Partial Thromboplastin Time 59.3 Seconds (21.0-31.0)
[2022-03-02 05:35] LABS: BUN Creatinine Ratio 18.7 (10-20); Calcium 7.8 mg/dl (8.5-10.1); Creatinine Clr Calc Pharmacy 83.8 ml/min; Est GFR (African American) 92.9 ml/min; Est GFR (Non-African American) 80.2 ml/min; Magnesium 1.4 mg/dl (1.7-2.4); Potassium 3.1 mmol/L (3.5-5.1)
--- NOTE | 2022-03-02 06:00 | Electrocardiogram Report ---
Test Reason : Blood Pressure : / mmHG Vent. Rate : 123 BPM Atrial Rate : 141 BPM P-R Int : 000 ms QRS Dur : 124 ms QT Int : 370 ms P-R-T Axes : 000 -26 131 degrees QTc Int : 529 ms Atrial fibrillation with rapid ventricular response Left ventricular hypertrophy with QRS widening Abnormal ECG When compared with ECG of 10-AUG-2021 11:47, Atrial fibrillation has replaced Sinus rhythm Confirmed by Vitaly Sutton ([id number]) on 03/02/2022 5:59:52 AM Referred By: Fuad Case Confirmed By:Vitaly Sutton
--- NOTE | 2022-03-02 06:00 | Electrocardiogram Report ---
Test Reason : Blood Pressure : / mmHG Vent. Rate : 129 BPM Atrial Rate : 125 BPM P-R Int : 000 ms QRS Dur : 118 ms QT Int : 352 ms P-R-T Axes : 000 -33 132 degrees QTc Int : 515 ms Atrial fibrillation with rapid ventricular response Left axis deviation Left ventricular hypertrophy with QRS widening Abnormal ECG When compared with ECG of 01-MAR-2022 09:09, No significant change was found Confirmed by Vitaly Sutton ([id number] on 03/02/2022 6:00:03 AM Referred By: Fuad Case Confirmed By:Vitaly Sutton
[2022-03-02] MEDS: SODIUM CHLORIDE 0.9% 1000ML 1,000 ML IV SCH ×2 (06:02→10:27)
[2022-03-02] MEDS: HEPARIN SODIUM/DEXTROSE 25,000 UNITS/500 ML BAG IV SCH (06:05)
[2022-03-02] MEDS: LEVOTHYROXINE SODIUM 125 MCG TABLET PO SCH (06:25)
[2022-03-02 06:55] LABS: Hematocrit (blood only) 35.9 % (34.1-44.9); Hemoglobin 12.1 g/dl (12.0-16.0); Mean Corpuscular Hgb Conc 33.7 g/dL (32.0-36.0); Mean Corpuscular Volume 86.1 fL (80.0-100.0); Mean Platelet Volume 9.4 fL (9.4-12.3); Platelet Count 234 K/uL (130-400); RDW Coefficient of Variation 13.9 % (11.5-14.5); RDW Standard Deviation 43.8 fL (36.4-46.3); Red Blood Count 4.17 M/uL (3.93-5.22); White Blood Count 9.46 K/ul (4.8-10.8)
[2022-03-02] MEDS: ROSUVASTATIN CALCIUM 5 MG TAB PO SCH (08:13)
[2022-03-02] MEDS: PANTOprazole 40 MG TAB PO SCH (08:13)
[2022-03-02] MEDS: CEROVITE ADV FORMULA TAB PO SCH (08:13)
[2022-03-02] MEDS: INSULIN ASPART PER UNIT SC SCH ×4 (08:52→20:49)
[2022-03-02] MEDS: LANTUS PER UNIT CHARGE SQ SCH (08:57)
[2022-03-02] MEDS ORDERED: METOPROLOL TARTRATE 25 MG TAB PO SCH (09:00)
[2022-03-02] MEDS ORDERED: POTASSIUM CHLORIDE CRTAB 20 MEQ TABCR PO STA (09:25)
--- NOTE | 2022-03-02 09:27 | Cardiology Consultation ---
Date of Consultation March 02, 2022 Assessment & Plan (1) Atrial fibrillation with rapid ventricular response: (2) Hypomagnesemia: (3) Hypokalemia: (4) Hypertension: Plan New onset atrial fibrillation with RVR in the setting of colonoscopy prep. CHADSVASC of 3 (age, female, HTN) Patient currently maintained on a diltiazem drip and p.o. metoprolol. Anticoagulated with heparin drip. BMI of 37. Self converted to NSR with frequent PVCs ~10am -Stop Diltazem. Will give an additional 25 mg of metoprolol tartrate this morning for a total of 50 mg in the am and 25 mg in the PM- will likely need to increased to 50 mg BID. -Start Eliquis 5 mg BID- okay to turn off heparin with first dose of Eliquis. Will consult case management for Eliquis cost assessment. -Hypokalemia and hypomagnesia persist. Supplemented with 40 mEq of KCl this morning and with IV mag replacement. Continue to trend BMP. Replete for goal potassium of 4.0 and magnesium of 2.0. -Recommend [facility] screening as out-patient -Will consider outpatient nuclear stress to screen for ischemic heart disease due to new onset PAF. Case discussed with Dr. Ken- will follow. Supervising Physician Co-Signing Physician Notes I reviewed the medical record and discussed the case with the nurse practitioner. I have seen and examined the patient. I agree with the plan as outlined above. From a cardiac standpoint I believe the patient may be discharged to outpatient follow-up. History of Present Illness Reason for Consultation: New onset atrial fibrillation Requesting Physician: Angel phelps Attending Physician: Willie Jacob MD History of Present Illness 71-year-old female who presented yesterday for a colonoscopy was found to be in new onset atrial fibrillation with RVR. Heart rates in the 120s. Colonoscopy completed due to blood on tissue paper after bowel movements. Colonoscopy revealed nonbleeding internal hemorrhoids. Patient was transferred to the emergency department. Low magnesium of 1.4 noted and replaced. Patient was given IV Lopressor 5 mg x 2. Patient was started on a diltiazem drip. Metoprolol tartrate 25 mg daily continued. Patient was anticoagulated with a heparin drip. Of note, she does carry history of hypertension and recently as an outpatient metoprolol tartrate was reduced from 25 mg twice daily to daily with the addition of lisinopril. Echocardiogram completed 03/01: LVEF 55 to 60%, no wall motion abnormalities, left atrium moderately dilated, mild MR and TR Chest x-ray 03/01: No acute cardiopulmonary finding 03/02: Labs: Stable CBC, hypokalemia noted with a potassium of 3.1, magnesium low at 1.4. EKG: NSR 76 bpm with frequent PVCs. Tele: Afib 80s, self converted to NSR with frequent PVCs ~10 am Patient resting comfortably in bed. No chest pain, sob, palpitations, or dizziness. Past medical history: Hypertension Hyperlipidemia Type 2 diabetes Hypothyroidism GERD H/o DVT after fall ~2013 H/o peptic ulcer without GI bleed, 2011 Allergies Allergy/AdvReac Type Severity Reaction Status Date / Time amlodipine [From [facility]] Allergy Intermediate Palpitation Verified 03/01/22 07:47 s olmesartan Allergy Intermediate lips face Verified 03/01/22 07:47 and fingers swollen Avandia TABS Allergy SWELLING Uncoded 03/01/22 07:47 Home Medications Medication Instructions Recorded Confirmed Type blood sugar diagnostic (OneTouch #200 ea 04/25/21 03/01/22 Rx Verio test strips) pantoprazole 40 mg tablet,delayed 40 mg PO DAILY #90 tabs 05/16/21 03/01/22 Rx release levothyroxine 125 mcg tablet 125 mcg PO DAILY #90 tabs 06/15/21 03/01/22 Rx estradiol 0.01% (0.1 mg/gram) 1 g vaginal .COMPLEX #42.5 grams 06/23/21 03/01/22 Rx vaginal cream blood-glucose meter (OneTouch #1 ea 07/07/21 03/01/22 Rx Verio IQ Meter kit) lancets (ShowMe VIdeokeTouch UltraSoft #200 ea 07/07/21 03/01/22 Rx Lancets) acetaminophen 500 mg tablet 500 mg PO Q6H PRN Pain 08/10/21 03/01/22 History (Tylenol Extra Strength) glimepiride 4 mg tablet 4 mg PO DAILY 01/18/22 03/01/22 History metoprolol tartrate 25 mg tablet 25 mg PO DAILY 01/18/22 03/01/22 History rosuvastatin 10 mg tablet 5 mg PO DAILY 01/18/22 03/01/22 History liraglutide 0.6 mg/0.1 mL (18 mg/3 1.8 mg subcut QAM 02/22/22 03/01/22 History mL) subcutaneous pen injector (Victoza 3-Suhdir) evccikwc-gsp-spctrv 5 mg-zeaxanth 1 cap PO QAM 02/22/22 03/01/22 History 1 mg-bilberry 7.5 mg-herbal capsule ([employer] Health Formula) apixaban 5 mg tablet (Eliquis) 5 mg PO BID #60 tabs 03/02/22 Rx Patient History Medical History Deep vein thrombosis 8 YEARS AGO S/P FALLING WITH BRUISING *ON LOVENOX AND COUMADIN FOR SHORT TERM TX Diabetes mellitus, type 2 EKG, abnormal HX OF (CONGENITAL PROBLEM) 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 GERD (gastroesophageal reflux disease) Glaucoma History of kidney stones History of recurrent UTIs "CAUSED FROM INVOKANA" RECENTLY STOPPED TAKING Hx of peptic ulcer Hypertension Hypomagnesemia Hypothyroidism New onset atrial fibrillation Osteoarthritis Peripheral neuropathy Pyelonephritis Seasonal allergies Sinus bradycardia Sleep apnea PT DENIES Vaginal mass vaginal erosion, treated with estrogen cream Surgical History H/O colonoscopy with polypectomy H/O eye surgery RT/LEFT EYE FOR ELEVATED PRESSURE History of bilateral tubal ligation History of bladder surgery BLADDER TACK History of cataract surgery RT/LEFT History of cholecystectomy History of dilatation and curettage History of esophagogastroduodenoscopy (EGD) History of herniorrhaphy History of repair of rotator cuff LEFT History of tooth extraction History of total hysterectomy with bilateral salpingo-oophorectomy (BSO) History of total knee replacement RT S/P fine needle aspiration left breast- fat necrosis 01/2007 Family History Mother Parkinson disease Diabetes Colorectal cancer Hypertension Cancer Grandmother (Maternal) Diabetes Sister Arthritis Father Myelodysplastic syndrome Hypertension Heart disease Grandmother Stroke Denies family history of Ovarian cancer No family history of adverse response to anesthesia No family history of bleeding disorder Allergies Breast cancer Asthma Social History Smoking Status: Never smoker Second Hand Exposure: No; Do You Dip or Chew Tobacco: No; Tobacco Cessation Education Requested by Patient: No Hx Alcohol Use: Yes Alcohol type: wine Alcohol Intake Frequency Comment: Very rarely per new patient form Hx Substance Use: No Preferred Language: Luxembourgish Communication Ability: Effective Improvement Lead Required: No Beliefs That Will Affect Care: None marital status: Current Living Situation: Alone current occupational status: retired How many Children do You have: 2 Other Information That Helps Us Care for You: No Feels Safe at Home: Yes Safety Concerns: Feels Safe At This Time Assistive Devices: Brace/Splint/Immobilizer, Contacts, Denture - Upper, Denture - Lower and Glasses Review of Systems Review of Systems: All systems reviewed & are unremarkable except as noted in HPI & below Physical Exam Constitutional: WD/WN, vitals as above no acute distress Neck: normal visual inspection Respiratory: normal respiratory effort, lungs clear to auscultation Cardiovascular: RRR, no murmur, no edema Heart Sounds: normal S1 and normal S2 Vessels: no JVD Extremities: no edema Gastrointestinal (Abdomen): normal bowel sounds, soft, nontender, no hepatosplenomegaly Results & Data ([facility]) Vital Signs (Past 12 Hours) Vital Signs Temp Pulse Resp BP Pulse Ox O2 Del Method 03/02/22 04:25 36.7 C 84 18 105/63 96 Room Air 03/01/22 22:44 37.2 C 16 94 Room Air Laboratory Results Cardiac Enzymes 03/01/22 Range/Units 11:57 Troponin I High Sens 7.7 (0-14) pg/ml Coagulation 03/01/22 03/02/22 Range/Units 19:10 02:32 APTT 41.2 H 59.3 H* (21.0-31.0) Seconds Lipids 03/02/22 Range/Units 04:36 Triglycerides 105 (0-150) mg/dl Cholesterol 91 (0-200) mg/dl HDL Cholesterol 30 mg/dl Cholesterol/HDL Ratio 3.0 (0-5) CBC 03/02/22 03/02/22 Range/Units 04:36 04:36 WBC Cancelled 9.46 RBC Cancelled 4.17 Hgb Cancelled 12.1 Hct Cancelled 35.9 Plt Count Cancelled 234 Comprehensive Metabolic Panel 03/02/22 Range/Units 04:36 Sodium 137 (136-145) mmol/L Potassium 3.1 L D (3.5-5.1) mmol/L Chloride 107 (98-107) mmol/L Carbon Dioxide 23 (21-32) mmol/L BUN 14 (6-23) mg/dl Creatinine 0.75 (0.6-1.2) mg/dl Glucose 166 H (70-99(Fasting)) mg/dl Calcium 7.8 L (8.5-10.1) mg/dl Intake and Output 03/01/22 03/02/22 03/02/22 22:59 06:59 14:59 Intake Total 309.010 / 3475.726 1666.716 / 3475.726 1125 / 1125 Output Total 200 / 200 Balance 109.010 / 3275.726 1666.716 / 3275.726 1125 / 1125 Intake: IV 309.010 / 3235.726 1426.716 / 3235.726 1125 / 1125 Heparin Sodium/Dextrose 25,000 182.677 / 496.810 314.133 / 496.810 units In 500 ml @ 1,550 UNITS/ HR 31 mls/hr IV .Q16H8M BRITTNEY Rx# :[id number] Magnesium Sulfate / D5w 1 gm In 100 / 100 100 ml @ 50 mls/hr IV ONE ONE Rx#:[id number] Sodium Chloride 0.9% 1000ML 1, 973.333 / 400.983 2674 / 1000 000 ml @ 100 mls/hr IV .Q10H BRITTNEY Rx#:[id number] cefTRIAXone SODIUM 2,000 mg In 70 / 70 Dextrose 5% 50 ml @ 100 mls/hr IV Q24H BRITTNEY Rx#:[id number] dilTIAZem HCL 125 mg In 26.333 / 95.583 69.25 / 95.583 125 / 125 Dextrose 5% 100 ml @ 15 MG/HR 15 mls/hr IV .Q8H20M BRITTNEY Rx#: [id number] Oral 240 / 240 Output: Urine 200 / 200 Other: Weight 103.873 kg 104.4 kg 104.4 kg Weight Measurement Method Built in Bedscale Built [facility] Bedscale [facility] Patient Weight 03/03/22 06:59 Weight 104.4 kg
[2022-03-02] MEDS: dilTIAZem HCL 125 MG in DEXTROSE 5% 100 ML IV SCH ×3 (10:21→10:26)
[2022-03-02] MEDS: MAGNESIUM OXIDE 400 MG TAB PO SCH (10:25)
[2022-03-02] MEDS: MAGNESIUM SULFATE / D5W 1 GM/100 ML BAG IV SCH ×4 (10:26→17:24)
[2022-03-02] MEDS ORDERED: METOPROLOL TARTRATE 25 MG TAB PO STA (10:35)
[2022-03-02] MEDS ORDERED: HEPARIN-STOP ORDER ONE (11:30)
--- NOTE | 2022-03-02 12:24 | Pharmacy Report ---
Pharmacy Glycemic Short Note 2 - Date of Service March 02, 2022 - Glycemic Short BSG Results (Last 24 hours): 03/01/22 03/01/22 03/02/22 18:41 20:28 04:36 Glucose 166 H POC Glucose 118 H 148 H 03/02/22 03/02/22 07:49 11:54 Glucose POC Glucose 121 H 196 H OUTPATIENT ANTIDIABETIC REGIMEN: * Glimepiride 4 mg PO AM * Victoza 1.8 mg SC AM * HbA1c: 7.3% (02/15/22) ASSESSMENT: 03/02/22: * Patient received 10 units of Lantus last night and 5 units of Novolog bolus. * Fasting BSG today was 121 mg/dl. * Patient had been on Cardizem and Heparin drips both of which have base solutions of Dextrose. These were both discontinued this morning. * Pre-lunch BSG = 196 mg/dl but expect BSGs to trend down this evening without the Dextrose solutions running. * Continued Novolog parameters same as yesterday. * Lantus dose at HS ordered as a scale based on BSG. Background 03/01/22: * 71 yo F admitted secondary to new onset atrial fibrillation. Pharmacy has been consulted to assist with inpatient glycemic management. Currently on a heparin and diltiazem drip. Ordered and tolerating a type 2 diet. * Serum BSG upon presentation to ED was 163 mg/dL. No further BSGs at this point. Will have RN check now and start with Novolog coverage based on weight/stress of 2. Will start basal based upon weight/stress of 1. PLAN FOR INPATIENT GLYCEMIC CONTROL: * Hold outpatient oral diabetes medications * Basal insulin * Lantus 10 units SC QAM * Lantus 0-5-10 units based on BSG at HS * Bolus insulin * NovoLog per scale ACHS or Q6hrs while NPO * Goal Range: Low 110 mg/dL - High 140 mg/dL * Correction Factor: 20 mg/dL/unit * Nutritional / Prandial insulin per carb ratio of 1 unit per 7 grams CHO consumed
[2022-03-02] MEDS: APIXABAN 5 MG TABLET PO SCH ×2 (13:02→20:54)
[2022-03-02] MEDS: POTASSIUM CHLORIDE CRTAB 20 MEQ TABCR PO SCH (13:17)
--- NOTE | 2022-03-02 13:23 | Hospitalist Progress Note ---
Date of Service March 02, 2022 Assessment & Plan (1) New onset atrial fibrillation: (2) Hypomagnesemia: (3) Hypertension: (4) Controlled type 2 diabetes mellitus with neuropathy: (5) Glaucoma: (6) Hypothyroidism: (7) GERD (gastroesophageal reflux disease): Plan Patient is a 71-year-old female with past medical history of hypertension was brought to the hospital from the colonoscopy suite after she was found to have atrial fibrillation with RVR. Patient was found to have hypomagnesemia and hypokalemia likely due to volume loss during colonoscopy preparation. In the emergency department, patient was given IV metoprolol 5 mg twice. She was started on Cardizem drip and was then admitted to PCU. She was also started on heparin drip. New onset Atrial Fibrillation: Hypomagnesemia Hypokalemia Patient presented to ED with A. fib with RVR following colonoscopy Likely precipitated by electrolyte derangements; hypomagnesemia and hyper kalemia. Was on Cardizem and heparin drip Echo shows EF of 55 to 60%. No valvular abnormalities. Plan; -Cardiology consulted; patient is resumed on metoprolol 25 mg twice daily. -Given potassium and magnesium supplements. -Patient is given coupon for Eliquis for 1 month. [place] of Eliquis for her was about 120 dollars for 1 month supply. -Plan to monitor her overnight on telemetry and DC in a.m. HTN Takes Metoprolol; 25 mg PO BID on 02/24 decreased to daily dosing with goal of transitioning to Lisinopril as an opt (has not started Lisinopril yet) HLD Continue on rosuvastatin DM2: Takes Glipizide at home; will DC while here and place on SSI with ACHS FSBS Recently stopped Invokana and started Victoza on 02/15 Last A1C: 02/15/2022 7.3 Diet: ChO4 and heart healthy Osteoporosis: Recently prescribed Fosamax; has not started yet. Recently prescribed Vitamin D3; has not started yet. Glaucoma: Takes Macular Health PO Hypothyroidism: Takes levothyroxine; continue TSH 10/2021: 0.81 TSH in ED 0.807 GERD: Takes pantoprazole; continue Disposition: PCP: Dr. Arvizu Code Status: Full Code VTE Prophylaxis: Eliquis Please note the above document was generated using voice recognition software. It may contain grammatical, syntax or spelling errors. Any formal questions or concerns about the content, text or information contained within the body of this dictation should be directly addressed to the provider for clarification Admission and Anticipated Discharge Date Admission Date: March 01, 2022 Subjective Patient seen and examined at bedside. She is comfortably sitting up on the side of the bed; not in distress. She denies any chest pain, shortness of breath or palpitation. Telemetry shows change in her rhythm from atrial fibrillation to sinus rhythm with PACs and PVCs. Review of Systems Review of Systems: All systems reviewed & are unremarkable except as noted in Subjective Physical Exam Physical Exam: Constitutional: WD/WN, vitals as above, NAD, sitting up in bed, pleasant, conversing easily Respiratory: normal respiratory effort, lungs clear to auscultation, no wheeze, rales, rhonchi. Normal insp/exp effort, no accessory muscle use Cardiovascular: RRR, no murmur, no edema Vessels: no JVD or carotid bruit Chest: normal inspection of chest Abdomen: normal bowel sounds, soft, nontender, no hepatosplenomegaly Musculoskeletal: no cyanosis or clubbing, extremities motor strength 5/5 Skin: no rashes, warm and dry normal turgor Neurologic: PERRL, EOMI, accommodation nl, no face palsy, no dysarthria CN's II- XI intact bilaterally and moves all extremities Psychiatric: A+Ox3, euthymic affect Lymphatic: no cervical or axillary lymphadenopathy : deferred Results & Data Results & Data ([facility]) Vital Signs (Past 12 Hours) Vital Signs Temp Pulse Resp BP Pulse Ox O2 Del Method 03/02/22 11:32 36.6 C 70 20 102/67 95 Room Air 03/02/22 04:25 36.7 C 84 18 105/63 96 Room Air Laboratory Results Laboratory Results WBC 9.46 K/ul (4.8-10.8) 03/02/22 04:36 WBC Cancelled 03/02/22 04:36 RBC 4.17 M/uL (3.93-5.22) 03/02/22 04:36 RBC Cancelled 03/02/22 04:36 Hgb 12.1 g/dl (12.0-16.0) 03/02/22 04:36 Hgb Cancelled 03/02/22 04:36 Hct 35.9 % (34.1-44.9) 03/02/22 04:36 Hct Cancelled 03/02/22 04:36 MCV 86.1 fL (80.0-100.0) 03/02/22 04:36 MCV Cancelled 03/02/22 04:36 MCH 29.0 pg (25.0-34.0) 03/02/22 04:36 MCH Cancelled 03/02/22 04:36 MCHC 33.7 g/dL (32.0-36.0) 03/02/22 04:36 MCHC Cancelled 03/02/22 04:36 RDW Std Deviation 43.8 fL (36.4-46.3) 03/02/22 04:36 RDW Std Deviation Cancelled 03/02/22 04:36 RDW Coeff of Devendra 13.9 % (11.5-14.5) 03/02/22 04:36 RDW Coeff of Devendra Cancelled 03/02/22 04:36 Plt Count 234 K/uL (130-400) 03/02/22 04:36 Plt Count Cancelled 03/02/22 04:36 MPV 9.4 fL (9.4-12.3) 03/02/22 04:36 MPV Cancelled 03/02/22 04:36 Immature Gran % (Auto) 0.2 % 03/01/22 09:49 Neut % (Auto) 70.2 % 03/01/22 09:49 Lymph % (Auto) 21.6 % 03/01/22 09:49 Baker % (Auto) 6.2 % 03/01/22 09:49 Eos % (Auto) 1.3 % 03/01/22 09:49 Baso % (Auto) 0.5 % 03/01/22 09:49 Neut # (Auto) 6.58 K/uL (1.4-6.5) H 03/01/22 09:49 Lymph # (Auto) 2.03 K/uL (1.2-3.4) 03/01/22 09:49 Baker # (Auto) 0.58 K/uL (0.24-0.82) 03/01/22 09:49 Eos # (Auto) 0.12 K/uL (0-0.50) 03/01/22 09:49 Baso # (Auto) 0.05 K/uL (0-0.2) 03/01/22 09:49 Immature Gran # (Auto) 0.02 K/uL (0.00-0.02) 03/01/22 09:49 Absolute Nucleated RBC Cancelled 03/02/22 04:36 Nucleated RBC % (auto) Cancelled 03/02/22 04:36 Platelet Estimate Cancelled 03/02/22 04:36 PT 11.2 Seconds (9.0-12.0) 03/01/22 09:49 INR 1.1 (0.9-1.1) 03/01/22 09:49 APTT 59.3 Seconds (21.0-31.0) H* 03/02/22 02:32 PTT Ratio 2.2 03/02/22 02:32 Sodium 137 mmol/L (136-145) 03/02/22 04:36 Potassium 3.1 mmol/L (3.5-5.1) L D 03/02/22 04:36 Chloride 107 mmol/L (98-107) 03/02/22 04:36 Carbon Dioxide 23 mmol/L (21-32) 03/02/22 04:36 Anion Gap 7 (3-11) 03/02/22 04:36 BUN 14 mg/dl (6-23) 03/02/22 04:36 Creatinine 0.75 mg/dl (0.6-1.2) 03/02/22 04:36 Est Cr Clr Drug Dosing 83.8 ml/min 03/02/22 04:36 Est GFR ( Amer) 92.9 ml/min 03/02/22 04:36 Est GFR (Non-Af Amer) 80.2 ml/min 03/02/22 04:36 BUN/Creatinine Ratio 18.7 (10-20) 03/02/22 04:36 Glucose 166 mg/dl (70-99(Fasting)) H 03/02/22 04:36 POC Glucose 196 mg/dl (70-99) H 03/02/22 11:54 Calcium 7.8 mg/dl (8.5-10.1) L 03/02/22 04:36 Phosphorus 3.2 mg/dl (2.5-4.9) 03/01/22 09:49 Magnesium 1.4 mg/dl (1.7-2.4) L 03/02/22 04:36 Total Bilirubin 0.9 mg/dl (0.2-1.0) 03/01/22 09:49 AST 18 U/L (13-39) 03/01/22 09:49 ALT 13 U/L (7-52) 03/01/22 09:49 Alkaline Phosphatase 93 U/L (34-104) 03/01/22 09:49 Troponin I High Sens 7.7 pg/ml (0-14) 03/01/22 11:57 Total Protein 7.9 gm/dl (6.0-8.3) 03/01/22 09:49 Albumin 3.8 gm/dl (3.4-5.0) 03/01/22 09:49 Globulin 4.1 gm/dl (2.5-4.0) H 03/01/22 09:49 Albumin/Globulin Ratio 0.9 (0.9-2) 03/01/22 09:49 Triglycerides 105 mg/dl (0-150) 03/02/22 04:36 Cholesterol 91 mg/dl (0-200) 03/02/22 04:36 LDL Cholesterol, Calc 40 mg/dl 03/02/22 04:36 VLDL Cholesterol, Calc 21 mg/dl (0-30) 03/02/22 04:36 HDL Cholesterol 30 mg/dl 03/02/22 04:36 Cholesterol/HDL Ratio 3.0 (0-5) 03/02/22 04:36 TSH 0.807 uIu/ml (0.300-4.500) 03/01/22 09:49 Urine Color Yellow 03/01/22 22:40 Urine Appearance Turbid (Clear) A 03/01/22 22:40 Urine pH 5.5 (4.5-7.5) 03/01/22 22:40 Ur Specific Sumner 1.011 (1.000-1.030) 03/01/22 22:40 Urine Protein Trace (Negative) H 03/01/22 22:40 Urine Glucose (UA) Negative (Negative) 03/01/22 22:40 Urine Ketones Negative (Negative) 03/01/22 22:40 Urine Blood 2+ (Negative) H 03/01/22 22:40 Urine Nitrite Positive (Negative) A 03/01/22 22:40 Urine Bilirubin Negative (Negative) 03/01/22 22:40 Urine Urobilinogen Negative (Negative) 03/01/22 22:40 Ur Leukocyte Esterase 3+ (Negative) H 03/01/22 22:40 Urine WBC (Auto) >30 /hpf (0-5) H 03/01/22 22:40 Urine RBC (Auto) 5-10 /hpf (0-4) H 03/01/22 22:40 U Hyaline Cast (Auto) 0 /lpf (0-5) 03/01/22 22:40 U Epithel Cells (Auto) >30 /lpf (0-5) H 03/01/22 22:40 Urine Bacteria (Auto) 4+ (Negative) H 03/01/22 22:40 SARS-CoV-2, RNA, NAAT NEGATIVE (NEGATIVE) 03/01/22 11:30 Impressions Chest X-Ray 03/01/22 09:56 XR chest 1V portable CLINICAL HISTORY: Dysrhythmia. COMPARISON STUDY: Chest radiograph August 10, 2021. FINDINGS: Lung volumes are normal. Lungs are clear. There is no pneumothorax or pleural effusion. Cardiac size is normal. Mediastinal contours are normal. There is no evidence for pulmonary edema. IMPRESSION: No acute cardiopulmonary findings. ACT 112: Negative or not required by law. Electronically signed by: Jf Haider M.D. 03/01/2022 10:37 AM
[2022-03-02] MEDS: METOPROLOL TARTRATE 25 MG TAB PO SCH (20:54)
[2022-03-02] MEDS ORDERED: LANTUS PER UNIT CHARGE SQ SCH (21:00)
[2022-03-03] MEDS: LEVOTHYROXINE SODIUM 125 MCG TABLET PO SCH (03:50)
[2022-03-03 05:58] LABS: Basophils # (auto) 0.05 K/uL (0-0.2); Basophils % (auto) 0.6 %; Eosinophils # (auto) 0.32 K/uL (0-0.50); Eosinophils % (auto) 3.8 %; Hematocrit (blood only) 36.1 % (34.1-44.9); Hemoglobin 12.3 g/dl (12.0-16.0); Immature Granulocytes # (auto) 0.02 K/uL (0.00-0.02); Immature Granulocytes % (auto) 0.2 %; Lymphocytes # (auto) 3.09 K/uL (1.2-3.4); Lymphocytes % (auto) 37.1 %; Mean Corpuscular Hemoglobin 29.1 pg (25.0-34.0); Mean Corpuscular Hgb Conc 34.1 g/dL (32.0-36.0); Mean Corpuscular Volume 85.5 fL (80.0-100.0); Mean Platelet Volume 9.1 fL (9.4-12.3); Monocytes # (auto) 0.67 K/uL (0.24-0.82); Neutrophils # (auto) 4.19 K/uL (1.4-6.5); Neutrophils % (auto) 50.3 %; Platelet Count 235 K/uL (130-400); RDW Coefficient of Variation 13.7 % (11.5-14.5); Red Blood Count 4.22 M/uL (3.93-5.22); White Blood Count 8.34 K/ul (4.8-10.8)
[2022-03-03 06:30] LABS: Albumin Level 3.4 gm/dl (3.4-5.0); BUN Creatinine Ratio 17.1 (10-20); Bilirubin,Total 0.6 mg/dl (0.2-1.0); Calcium 8.4 mg/dl (8.5-10.1); Creatinine Clr Calc Pharmacy 82.9 ml/min; Est GFR (African American) 91.5 ml/min; Est GFR (Non-African American) 78.9 ml/min; Globulin 3.5 gm/dl (2.5-4.0); Magnesium 1.8 mg/dl (1.7-2.4); Potassium 3.7 mmol/L (3.5-5.1); Total Protein 6.9 gm/dl (6.0-8.3)
--- NOTE | 2022-03-03 07:57 | Cardiology Progress Note ---
Date of Service March 03, 2022 Assessment & Plan (1) Atrial fibrillation with rapid ventricular response: (2) Hypomagnesemia: (3) Hypokalemia: (4) Hypertension: Plan New onset atrial fibrillation with RVR in the setting of colonoscopy prep/dehydration. CHADSVASC of 4 (age, female, HTN, DM). BMI of 37. Self converted to NSR with frequent PVCs ~10am on 03/02 Diltiazem gtt dc'd 03/02/2022. Heparin dc'd in favor of Eliquis 5 mg BID, 03/02/2022. -NSR 80s with Frequent PVCs over night, asymptomatic. Increase metoprolol tartrate to 37.5 mg BID. -Continue Eliquis 5 mg BID- Currently patient is in the donut hole. It will cost her about 120$/month until the new year to be on Eliquis. She will use her 1 month supply free and I will send remaining Rx to the [facility] mail order. She will alert our office should the cost of Eliquis be too great in the new year- at this time we can discuss switching to Coumadin. I provided the patient with my card. -Improved potassium and mag levels- continue daily supplementation. Patient will be given an 40 meq of KCL this am and 400 mg of Mag ox. Continue to trend BMP while inpatient. Replete for goal potassium of 4.0 and magnesium of 2.0. Patient will need blood work 1 week post discharge- orders are already in the [facility] system. -Patient to have a 14 day zio monitor placed following discharge- okay to do the same day as labs. I will have the outpatient cardiology office scheduling team arrange. -Blood pressures have been well controlled this admission. Will hold off on starting lisinopril- can follow up as an outpatient. Given her DM this medi cation may be beneficial for renal protection. -Consider LAUREN screening as out-patient -Will consider outpatient nuclear stress to screen for ischemic heart disease due to new onset PAF. Case discussed with Dr. Shelly stockton for CARLOS from cardiology standpoint. Will arrange follow up in our office in 4-6 weeks. Admission and Anticipated Discharge Date Admission Date: March 01, 2022 Supervising Physician Co-Signing Physician Notes I have seen and examined the patient. I reviewed the medical record and discussed the case with the nurse practitioner. I agree with the plan as outlined. She will have follow-up as an outpatient. Subjective 71-year-old female who initially presented for a colonoscopy on 03/01, was found to be in new onset atrial fibrillation with RVR with heart rates in the 120s. Colonoscopy completed due to blood on tissue paper after bowel movements. Colonoscopy revealed nonbleeding internal hemorrhoids. In the emergency department she was found to have hypomagnesia and hypokalemia was replaced appropriately. IV Lopressor 5 mg given twice. Patient was started on a heparin drip for anticoagulation as well as a diltiazem drip. Patient was primarily asymptomatic with minimal palpitations. 03/02: Self converted to normal sinus rhythm with frequent PVCs approximately 10 AM Diltiazem drip stopped. Metoprolol tartrate increased to 25 mg twice daily Potassium and magnesium replaced. Heparin drip discontinued in favor of Eliquis 5 mg twice daily 03/03: Labs: CBC stable. Renal function within normal limits. Potassium 3.7. Magnesium 1.8 Telemetry: NSR 80s. Freq PVCs Upon entrance into the room patient resting comfortably in bed. Uneventful night. No chest pain, sob, palpitations, dizziness or syncope. Eager for discharge. Review of Systems Review of Systems: All systems reviewed & are unremarkable except as noted in HPI & below Physical Exam Constitutional: WD/WN, vitals as above no acute distress Neck: normal visual inspection Respiratory: normal respiratory effort, lungs clear to auscultation Cardiovascular: RRR, no murmur, no edema Heart Sounds: normal S1 and normal S2 Vessels: no JVD Extremities: no edema Gastrointestinal (Abdomen): normal bowel sounds, soft, nontender, no hepatosplenomegaly Results & Data ([facility]) Vital Signs (Past 12 Hours) Vital Signs Temp Pulse Pulse Resp BP Pulse Ox O2 Del Method 03/03/22 03:51 36.6 C 71 18 106/69 93 Room Air 03/02/22 23:11 36.4 C L 70 18 123/74 98 Room Air 03/02/22 22:58 69 03/02/22 20:26 36.8 C 84 16 124/79 94 Room Air Laboratory Results Cardiac Enzymes 03/03/22 Range/Units 05:40 AST 14 (13-39) U/L CBC 03/03/22 Range/Units 05:40 WBC 8.34 (4.8-10.8) K/ul RBC 4.22 (3.93-5.22) M/uL Hgb 12.3 (12.0-16.0) g/dl Hct 36.1 (34.1-44.9) % Plt Count 235 (130-400) K/uL Neut # (Auto) 4.19 (1.4-6.5) K/uL Lymph # (Auto) 3.09 (1.2-3.4) K/uL [place] # (Auto) 0.67 (0.24-0.82) K/uL Eos # (Auto) 0.32 (0-0.50) K/uL Baso # (Auto) 0.05 (0-0.2) K/uL Comprehensive Metabolic Panel 03/03/22 Range/Units 05:40 Sodium 139 (136-145) mmol/L Potassium 3.7 (3.5-5.1) mmol/L Chloride 109 H (98-107) mmol/L Carbon Dioxide 23 (21-32) mmol/L BUN 13 (6-23) mg/dl Creatinine 0.76 (0.6-1.2) mg/dl Glucose 134 H (70-99(Fasting)) mg/dl Calcium 8.4 L (8.5-10.1) mg/dl AST 14 (13-39) U/L ALT 10 (7-52) U/L Alkaline Phosphatase 72 (34-104) U/L Total Protein 6.9 (6.0-8.3) gm/dl Albumin 3.4 (3.4-5.0) gm/dl Intake and Output 03/02/22 03/03/22 03/03/22 22:59 06:59 14:59 Intake Total 488.333 / 3308.333 550 / 3308.333 Balance 488.333 / 3308.333 550 / 3308.333 Intake: IV 248.333 / 2168.333 70 / 2168.333 Magnesium Sulfate / D5w 1 gm In 248.333 / 348.333 100 ml @ 50 mls/hr IV Q2H [facility] Rx#:[id number] cefTRIAXone SODIUM 2,000 mg In 70 / 70 Dextrose 5% 50 ml @ 100 mls/hr IV Q24H [facility] Rx#:[id number] Oral 240 / 1140 480 / 1140 Other: # Unmeasured Voids 3 Weight 104.462 kg 104.4 kg Weight Measurement Method [facility] in [facility] Patient Weight 03/04/22 06:59 Weight 104.4 kg
[2022-03-03] MEDS: APIXABAN 5 MG TABLET PO SCH (08:26)
[2022-03-03] MEDS: METOPROLOL TARTRATE 25 MG TAB PO SCH (08:27)
[2022-03-03] MEDS: CEROVITE ADV FORMULA TAB PO SCH (08:27)
[2022-03-03] MEDS: MAGNESIUM OXIDE 400 MG TAB PO SCH (08:27)
[2022-03-03] MEDS: PANTOprazole 40 MG TAB PO SCH (08:27)
[2022-03-03] MEDS: ROSUVASTATIN CALCIUM 5 MG TAB PO SCH (08:27)
[2022-03-03] MEDS: INSULIN ASPART PER UNIT SC SCH (08:30)
[2022-03-03] MEDS: POTASSIUM CHLORIDE CRTAB 20 MEQ TABCR PO SCH (08:32)
[2022-03-03] MEDS ORDERED: LANTUS PER UNIT CHARGE SQ SCH (09:00)
[2022-03-03] MEDS ORDERED: METOPROLOL TARTRATE 25 MG TAB PO ONE (09:36)
--- NOTE | 2022-03-03 09:37 | Discharge Summary ---
Date of Service March 03, 2022 Admission HPI Per Admitting Provider Ms. Lucila Prasad is a 71-year-old female that presented to the [facility] ED, accompanied by her daughter Julieta, as recommended in the colonoscopy suite as she went into a new onset of atrial fibrillation with rapid ventricular rate. Colonoscopy performed by Dr. Hadley revealed nonbleeding internal hemorrhoids, otherwise unremarkable. The patient stated that she was experiencing left lower quadrant pain and a CT abdomen was performed revealing an umbilical hernia. She also noted some blood on her toilet paper which prompted the colonoscopy to be performed. She has stated that she has had recent UTIs, for this past year and she was just recently treated for 1 finishing antibiotics last . Otherwise no other illnesses to report . She is vaccinated against flu and COVID . Other past medical history includes hypertension, hyperlipidemia, hypothyroidism, osteoarthritis, diabetes mellitus type 2, peripheral neuropathy, LAUREN (not on CPAP) and glaucoma for which she sees Dr. Cottrell at [facility]. Patient denies headache, dizziness, shortness of breath, chest pain, palpitations, visual changes, tinnitus, syncope or near syncope, recent falls, appetite changes, urinary changes, bowel pattern changes, recent trauma. Patient denies tobacco use or recreational drug use and has a alcoholic drink socially once a month or so. Patient does live alone at home but plans to stay with her daughter upon discharge. In the ED she has now received metoprolol 5 mg IV x2. No signs of leukocytosis, hypomagnesemia with a mag of 1.4 will replace. This could be related to her colonoscopy procedure, dehydration since she was n.p.o. or alteration with her hypertension medications recently. She was taking metoprolol 25 mg p.o. twice daily and last Saturday 02/24 she was decreased to 25 mg p.o. daily with a goal to transition to lisinopril however she has not started the lisinopril yet. Anticoagulation, rate control and antiarrhythmics as goal with cardiology support. Admission Exam Per Admitting Provider Neuro: AAOx4, PERRLA, no aphagia, memory changes, CNII-XII grossly intact HEENT: head normocephalic, moist mucus membranes CV: Irregularly irregular, increased rate (-) M/G/R, (-) edema, cap refill < 3 seconds Resp: Lungs CTA in all cole. On RA GI: Abdomen S/NT/ND, Ax4 bowel sounds, (-) CVA tenderness Musculoskeletal: 5/5 B/L UE strength, 5/5 B/L LE strength. No gait disturbance Skin: (-) rashes , (-) erythema. Psych: euthymic mood Principal Diagnosis new onset atrial fibrillation Discharge Exam Gen: WD/WN, NAD, sitting on side of bed, A&Ox3 HEENT: Normocephalic, atraumatic, conjunctivae moist, sclerae anicteric, mucous membranes moist Lung: Clear to Auscultation bilaterally, no wheezes/rales/rhonchi Heart: RRR, no murmurs, rubs, or gallops Abdomen: Soft, NT, ND +BS x 4 Extremities: no edema Skin: Warm, no rash Discharge Data Allergies Allergy/AdvReac Type Severity Reaction Status Date / Time amlodipine [From [facility]] Allergy Intermediate Palpitation Verified 03/01/22 07:47 s olmesartan Allergy Intermediate lips face Verified 03/01/22 07:47 and fingers swollen Avandia TABS Allergy SWELLING Uncoded 03/01/22 07:47 Consultations 03/01/22 11:34 Consult Cardiology Routine 03/01/22 12:26 ED Decision to Admit Stat Hospital Course (1) New onset atrial fibrillation: (2) Hypomagnesemia: (3) Hypertension: (4) Controlled type 2 diabetes mellitus with neuropathy: (5) Glaucoma: (6) Hypothyroidism: (7) GERD (gastroesophageal reflux disease): Plan Patient is a 71-year-old female with past medical history of hypertension was brought to the hospital from the colonoscopy suite after she was found to have atrial fibrillation with RVR. Patient was found to have hypomagnesemia and hypokalemia likely due to volume loss during colonoscopy preparation. In the emergency department, patient was given IV metoprolol 5 mg twice. She was started on Cardizem drip and was then admitted to PCU. Converted to NSR with frequent PVCs on 03/02/22. Heparin drip was transitioned to Eliquis at time of discharge. Metoprolol tartrate increased to 37.5mg BID per cardiology and started on potassium and magnesium supplements. Echo shows EF of 55 to 60%. No valvular abnormalities. Cardiology to coordinate follow up. Patient comfortable and hemodynamically stable at time of discharge. Total Time Total Time Spent Total Time Spent (In Minutes): 35 Discharge Plan Discharge Items Patient Disposition: Home - Self-Care Reason For Visit: new onset atrial fibrillation Discharge Diagnosis: New onset atrial fibrillation Hypokalemia Hypomagnesia Activity: Resume your previous activity Non-emergency contact: Primary Care Provider Call non-emergency contact if: you have any medication questions and your symptoms worsen Follow-up/Referrals: Kenneth Arvizu DO [Primary Care Provider] - 03/10/22 3:00 pm (Date & Time 03/10/2022 3:00 PM Provider Kenneth Arvizu DO Department Family Practice [address], [place] ) Diet: Regular Addtl Attending Provider Instructions: You were admitted to the hospital with irregular heart rhythm called Atrial Fibrillation. Your heart rhythm changed to regular rhythm during the hospitalization. The atrial fibrillation is likely triggered by Low magnesium and potassium after colonoscopy preparation. Please increase your Metoprolol to 37.5 mg twice daily. You are also prescribed Eliquis( blood thinner) to decrease the risk of stroke. Supplement for Potassium and magnesium is sent to your pharmacy. Follow up with PCP will be set up on 03/10/2022 at 3pm. Also , you will have follow up set up with Cardiology. Pending Studies at Discharge: No Stand-Alone Forms: My [facility] imeem, Smoking Cessation Medications and DC Order Prescriptions: New Eliquis 5 mg tablet 5 mg PO BID Qty: 60 0RF potassium chloride 20 mEq Tablet,Er Particles/Crystals 20 meq PO QAM 30 Days Qty: 30 0RF magnesium oxide 400 mg (241.3 mg magnesium) Tablet 400 mg PO QAM Qty: 30 0RF metoprolol tartrate 25 mg tablet 37.5 mg PO BID Qty: 60 0RF Continued (DME) OneTouch Verio test strips Strip See Rx Instructions .ROUTE .MEDSUPPLY Qty: 200 3RF Rx Instructions: Test blood sugar twice daily pantoprazole 40 mg tablet,delayed release (DR/EC) 40 mg PO DAILY Qty: 90 3RF Label Comments: QAM levothyroxine 125 mcg tablet 125 mcg PO DAILY Qty: 90 0RF estradiol 0.01 % (0.1 mg/gram) cream 1 g vaginal .COMPLEX Qty: 42.5 2RF Rx Instructions: 2 days per week vaginally. (DME) blood-glucose meter [OneTouch Verio IQ Meter] Kit See Rx Instructions .Route Qty: 1 0RF Rx Instructions: Check blood glucose once daily (DME) lancets [OneTouch UltraSoft Lancets] Misc See Rx Instructions .ROUTE .MEDSUPPLY Qty: 200 3RF Rx Instructions: Test blood sugar twice daily glimepiride 4 mg tablet 4 mg PO DAILY Label Comments: QAM rosuvastatin 10 mg tablet 5 mg PO DAILY Label Comments: QAM acetaminophen [Tylenol Extra Strength] 500 mg Tablet 500 mg PO Q6H PRN (Reason: Pain) Victoza 3-Sudhir 0.6 mg/0.1 mL (18 mg/3 mL) Pen Injector 1.8 mg SUBCUT QAM Macular Health Formula 5-1-7.5 mg Capsule 1 cap PO QAM Discontinued metoprolol tartrate 25 mg tablet 25 mg PO DAILY Discharge Orders: Discharge Order (Routine); Ordered 03/03/22 Ordered By: Willie Jacob Admission Data Admit Date/Time: 03/01/22 11:34 Attending Provider: Willie Jacob Admit Provider: Mckenzie Durán Primary Care Provider: Kenneth Arvizu Other Providers: Rick Ken ; Mckenzie Durán ; Ximena Archibald Other Interventions: Discharge Summary Assessment (RN) Last Done: 03/03/22 10:09 Supervising Physician Co-Signing Physician Notes Patient seen and examined independently. Agree with above documentation by Ximena Archibald PA-C She continues to maintain sinus rhythm with frequent PACs and PVCs. No complaint of chest pain, shortness of breath or palpitation. Discharged on Eliquis and metoprolol 37.5 twice daily as per recommendation by cardiology. She will follow-up with her primary care doctor and cardiology.
[2022-03-03] MEDS ORDERED: METOPROLOL TARTRATE 25 MG TAB PO SCH (21:00)
--- NOTE | 2022-03-04 06:18 | Electrocardiogram Report ---
Test Reason : Blood Pressure : / mmHG Vent. Rate : 076 BPM Atrial Rate : 076 BPM P-R Int : 200 ms QRS Dur : 124 ms QT Int : 450 ms P-R-T Axes : 000 -27 058 degrees QTc Int : 506 ms Sinus rhythm with frequent Premature ventricular complexes Left ventricular hypertrophy with QRS widening Cannot rule out Septal infarct , age undetermined Abnormal ECG When compared with ECG of 01-MAR-2022 09:38, Sinus rhythm has replaced Atrial fibrillation Vent. rate has decreased BY 53 BPM Confirmed by Vitaly Sutton ([id number]) on 03/04/2022 6:18:32 AM Referred By: Fuad Case Confirmed By:Vitaly Sutton
== END 2022-03-03 12:27 | disposition home or self-care (01) | DRG 309 ==
LOC: ED 09:34 → EDINP 11:34 → SUATTDRO 11:34 → 4W 16:39

== ENCOUNTER 2022-06-26 06:30 | Inpatient (IN) ==
--- NOTE | 2022-06-26 07:23 | XRay Report ---
XR chest 1V portable CLINICAL HISTORY: Chest pain, nonspecific COMPARISON STUDY: Chest radiograph March 01, 2022. FINDINGS: Lung volumes are normal. Lungs are clear. There is no pneumothorax or pleural effusion. Car diac size is normal. Mediastinal contours are normal. There is no evidence for pulmonary edema. IMPRESSION: No acute cardiopulmonary findings. No significant change in appearance of the chest. ACT 112: Negative or not required by law. Electronically signed by: Jf Haider M.D. 06/26/2022 7:21 AM
[2022-06-26] MEDS ORDERED: METOPROLOL TARTRATE 1 MG/ML VIAL IV STA ×3 (07:24→07:59)
[2022-06-26] MEDS ORDERED: SODIUM CHLORIDE 0.9% 500 ML IV ONE (07:24)
--- NOTE | 2022-06-26 07:28 | Emergency Department Note ---
Impression & Plan Atrial fibrillation with rapid ventricular response ED Provider Note Name: ARIEL ARZOLA Age: 71 Sex: F Arrives Via: Walk-In Informant: Patient, daughter ED Provider: Wallace Quesada MD Chief Complaint: Palpitations Impression: As per impressions above Medical Decision Making: Pleasant 71-year-old female with history of paroxysmal A-fib, GERD, SVT, hypertension, dyslipidemia, hypothyroidism arrives for evaluation of essentially 36 hours of palpitations found to be in A-fib RVR on arrival. Hemodynamically otherwise stable with heart rate in the 140s to 160s. She was given 1 L normal saline bolus along with 3 rounds of 5 mg Lopressor IV followed by Cardizem 15 mg IV and heart rate is down to the low 100s. She is not having chest pain significant shortness of breath or other concerning signs or symptoms at this time. Laboratory work-up not overly concerning. There is no evidence of sepsis and not feel that this is secondary to infectious etiology. She is ready on Eliquis the setting PE is unlikely and she has no symptoms of a dissection. Chest x-ray is without significant fluid overload. Did review the case with cardiology who agreed with trialing some Cardizem as well as planning on bringing her in. Hospitalist was consulted for further management. Throughout patient was comfortable without significant complaints and agreeable to plan. Prior Medical Record and Triage/Nursing Notes reviewed by Me External chart review by me including outpatient records of previous hospitalization discharge summary Differentials:A-fib, a flutter, SVT, PE, dissection, ACS, electrolyte imbalance, infectious etiology amongst other pathologies considered Vital Signs: reviewed and remarkable for tachycardia Interventions: Lopressor 5 mg IV x3, Cardizem 15 mg IV, normal saline bolus 1 L total IV Labs:Reviewed and remarkable for no significant abnormalities Imagin view chest x-ray interpreted by me no evidence of overt pulmonary edema/failure or pneumonia or pneumothorax EKG:As per my interpretation. Indication palpitations. Atrial fibrillation with rapid ventricular response at 157 bpm with a multiple PVCs. There is an intraventricular delay and there is lateral and inferior ST depressions. When compared to an EKG of March 02, 2022 the A-fib is new but the intraventricular delay remains. Cardiac/Tele Monitoring: Cardiac Monitoring: An Order was placed for continuous cardiac monitoring. The monitor shows a rate of 150 with a A-fib RVR rhythm. Consults:Dr Zarina Argueta. Dr Sintia Ortiz Hospitalist Plan: Disposition:Hospitalization. Condition: Good History of Present Illness:71-year-old female arrives for evaluation of palpitations. Patient notes some mild nausea starting 36 hours ago. The next morning she realized her heart was racing. This seems similar to her previous A-fib. She did not have any specific chest pain syncope shortness of breath so she waited it out at home. This morning she did feel a bit weaker still has mild nausea. Her iWatch says she is in A-fib. She denies any leg swelling, chest pain, difficulty breathing, abdominal pain, back pain, headache or other concerning signs or symptoms. No recent illnesses. She does have a history of a fib which is paroxysmal and takes Eliquis for it. She has had issues for the last month or so. She took an extra metoprolol yesterday without improvement. Past History:See Below Home Medications:See Below Allergies:See Below Vitals:Blood Pressure: 138/70, , Pulse 158, RR 20, T 36.6C, O2 100% on RA Physical Exam: GENERAL: Patient is tired appearing and in minimal distress. EYES: No scleral icterus, unremarkable pupils. ENT: Mucous membranes dry RESPIRATORY: No dyspnea. Clear to auscultation and equal bilaterally. No wheeze, no rhonchi. CARDIOVASCULAR: Regular tachycardic GASTROINTESTINAL: Abdomen soft, non-tender, no peritonitis. EXTREMITIES: Normal motion all extremities, no cyanosis, no edema. NEUROLOGIC: Alert and oriented, no focal neurologic deficit appreciated SKIN: No rash, no jaundice, no diaphoresis. PSYCH: Appropriate GCS: 15 ED Course: Times/Reassessments: Minimal response of A-fib RVR to Lopressor however significant improvement after Cardizem IV. Patient is stable and comfortable throughout agreeable to hospitalization. Critical Care: I have personally spent 40 minutes of critical care time in the direct management of this patient. A-fib RVR requiring multiple rounds of IV rate control medications. This was a life/limb threatening event. This 40 minutes is in excess of all separately billable procedures. Wallace Quesada MD Past Med/Surg History Medical History Acquired deviated nasal septum Allergic rhinitis ASCUS of cervix with negative high risk HPV Deep vein thrombosis 8 YEARS AGO S/P FALLING WITH BRUISING *ON LOVENOX AND COUMADIN FOR SHORT TERM [place] Diabetes mellitus, type 2 EKG, abnormal HX OF (CONGENITAL PROBLEM) NO DAY CARE HOME PROVIDER Frequent UTI GERD (gastroesophageal reflux disease) Glaucoma History of kidney stones History of recurrent UTIs "CAUSED FROM INVOKANA" RECENTLY STOPPED TAKING Hx of peptic ulcer Hypertension Hypomagnesemia Hypothyroidism New onset atrial fibrillation Osteoarthritis Peripheral neuropathy Pyelonephritis Seasonal allergies Sinus bradycardia Vaginal mass vaginal erosion, treated with estrogen cream Vocal cord nodules Surgical History H/O colonoscopy with polypectomy H/O eye surgery RT/LEFT EYE FOR ELEVATED PRESSURE History of bilateral tubal ligation History of bladder surgery BLADDER TACK History of cataract surgery RT/LEFT History of cholecystectomy History of dilatation and curettage History of esophagogastroduodenoscopy (EGD) History of herniorrhaphy History of repair of rotator cuff LEFT History of tooth extraction History of total hysterectomy with bilateral salpingo-oophorectomy (BSO) History of total knee replacement RT S/P fine needle aspiration left breast- fat necrosis 01/2007 Family History Mother Parkinson disease Diabetes Colorectal cancer Hypertension Cancer Grandmother (Maternal) Diabetes Sister Arthritis Father Myelodysplastic syndrome Hypertension Heart disease Grandmother Stroke Denies family history of Ovarian cancer No family history of adverse response to anesthesia No family history of bleeding disorder Allergies Breast cancer Asthma Social History Smoking Status: Never smoker Second Hand Exposure: No; Hx Alcohol Use: No Hx Substance Use: No Preferred Language: Zambian Communication Ability: Effective Canopy Inspector Required: No Beliefs That Will Affect Care: None marital status: Current Living Situation: Alone current occupational status: retired How many Children do You have: 2 Feels Safe at Home: Yes Safety Concerns: Feels Safe At This Time Assistive Devices: None Allergies Allergies Allergy/AdvReac Type Severity Reaction Status Date / Time amlodipine [From Norvasc] Allergy Intermediate Palpitation Verified 03/01/22 07:47 s olmesartan Allergy Intermediate lips face Verified 03/01/22 07:47 and fingers swollen rosiglitazone Allergy Unknown "swelling" Verified 06/26/22 21:20 Home Meds Home Medications Medication Instructions Recorded Confirmed acetaminophen 500 mg tablet 500 mg PO Q6H PRN Pain 08/10/21 06/26/22 (Tylenol Extra Strength) glimepiride 4 mg tablet 4 mg PO BID 01/18/22 06/26/22 liraglutide 0.6 mg/0.1 mL (18 mg/3 1.8 mg subcut QAM 02/22/22 06/26/22 mL) subcutaneous pen injector (Victoza 3-Sudhir) [id number] 5 mg-zeaxanth 1 cap PO QAM 02/22/22 06/26/22 1 mg-bilberry 7.5 mg-herbal capsule (Macular Health Formula) cholecalciferol (vitamin D3) 50 50 mcg PO DAILY 06/26/22 06/26/22 mcg (2,000 unit) capsule (Vitamin D3) magnesium oxide 400 mg (241.3 mg 400 mg PO QPM 06/26/22 06/26/22 magnesium) tablet metformin 500 mg tablet,extended 1,000 mg PO QPM 06/26/22 06/26/22 release 24 hr metformin 500 mg tablet,extended 500 mg PO QAM 06/26/22 06/26/22 release 24 hr metoprolol tartrate 50 mg tablet 50 mg PO BID 06/26/22 06/26/22 mv-mn-folic 200 mcg-vit K 15 1 cap PO BID 06/26/22 06/26/22 mcg-lutein 5 mg-zeaxanthin 1 mg capsule (PreserVision AREDS 2 Plus Multivit) potassium chloride 20 mEq 20 meq PO DAILY 06/26/22 06/26/22 tablet,extended release rosuvastatin 5 mg tablet 5 mg PO DAILY 06/26/22 06/26/22 Previous Rx's Medication Instructions Recorded blood sugar diagnostic (OneTouch #200 ea 04/25/21 Verio test strips) pantoprazole 40 mg tablet,delayed 40 mg PO DAILY #90 tabs 05/16/21 release levothyroxine 125 mcg tablet 125 mcg PO DAILY #90 tabs 06/15/21 blood-glucose meter (OneTouch #1 ea 07/07/21 Verio IQ Meter kit) lancets (OneTouch UltraSoft #200 ea 07/07/21 Lancets) apixaban 5 mg tablet (Eliquis) 5 mg PO BID #60 tabs 03/02/22 Results & Data (ED) Vital Signs Vital Signs - 24 hr 06/26/22 06:36 06/26/22 07:11 Pulse Rate 104 H 153 H Respiratory Rate 20 Respiratory Effort / Characteristics Non-Labored Spontaneous Respiratory Depth Normal Blood Pressure 109/71 Blood Pressure Mean 83 Pulse Oximetry 96 Oxygen Delivery Method Room Air Sepsis Recent Fever Within 48 Hours No Sepsis New/Unexplained Change in Mental Status N/A Sepsis Action Taken by Nursing No Action Required Laboratory Data 06/26/22 06:52 06/26/22 06:52 Lab Results 06/26/22 06/26/22 06/26/22 Range/Units 06:50 06:52 06:52 WBC 8.97 (4.8-10.8) K/ul RBC 4.73 (4.20-5.40) M/uL Hgb 14.0 (12.0-16.0) g/dl Hct 41.7 (37.0-47.0) % MCV 88.2 (80.0-100.0) fL MCH 29.6 (25.0-34.0) pg MCHC 33.6 (32.0-36.0) g/dL RDW Std Deviation 43.6 (36.4-46.3) fL RDW Coeff of Devendra 13.5 (11.5-14.5) % Plt Count 292 (130-400) K/uL MPV 9.3 L (9.4-12.4) fL Immature Gran % (Auto) 0.3 % Neut % (Auto) 65.3 % Lymph % (Auto) 21.3 % [place] % (Auto) 9.7 % Eos % (Auto) 2.8 % Baso % (Auto) 0.6 % Neut # (Auto) 5.86 (1.40-6.50) K/uL Lymph # (Auto) 1.91 (1.2-3.4) K/uL [place] # (Auto) 0.87 H (0.11-0.59) K/uL Eos # (Auto) 0.25 (0-0.50) K/uL Baso # (Auto) 0.05 (0-0.2) K/uL Immature Gran # (Auto) 0.03 (0.01-0.20) K/uL PT 11.9 (9.0-12.0) Seconds INR 1.1 (0.9-1.1) APTT 28.5 (21.0-31.0) Seconds PTT Ratio 1.0 Sodium (136-145) mmol/L Potassium (3.5-5.1) mmol/L Chloride (98-107) mmol/L Carbon Dioxide (21-32) mmol/L Anion Gap (3-11) BUN (6-23) mg/dl Creatinine (0.6-1.2) mg/dl Est Cr Clr Drug Dosing ml/min Est GFR ( Amer) ml/min Est GFR (Non-Af Amer) ml/min BUN/Creatinine Ratio (10-20) Glucose (70-99(Fasting)) mg/dl Calcium (8.6-10.3) mg/dl Magnesium (1.7-2.4) mg/dl Total Bilirubin (0.2-1.0) mg/dl AST (13-39) U/L ALT (7-52) U/L Alkaline Phosphatase (34-104) U/L Troponin I High Sens (0-14) pg/ml Total Protein (6.0-8.3) gm/dl Albumin (3.4-5.0) gm/dl Globulin (2.5-4.0) gm/dl Albumin/Globulin Ratio (0.9-2) TSH (0.300-4.500) uIu/ml SARS-CoV-2, RNA, NAAT NEGATIVE (NEGATIVE) 06/26/22 06/26/22 06/26/22 Range/Units 06:52 06:52 06:52 WBC (4.8-10.8) K/ul RBC (4.20-5.40) M/uL Hgb (12.0-16.0) g/dl Hct (37.0-47.0) % MCV (80.0-100.0) fL MCH (25.0-34.0) pg MCHC (32.0-36.0) g/dL RDW Std Deviation (36.4-46.3) fL RDW Coeff of Devendra (11.5-14.5) % Plt Count (130-400) K/uL MPV (9.4-12.4) fL Immature Gran % (Auto) % Neut % (Auto) % Lymph % (Auto) % [place] % (Auto) % Eos % (Auto) % Baso % (Auto) % Neut # (Auto) (1.40-6.50) K/uL Lymph # (Auto) (1.2-3.4) K/uL [place] # (Auto) (0.11-0.59) K/uL Eos # (Auto) (0-0.50) K/uL Baso # (Auto) (0-0.2) K/uL Immature Gran # (Auto) (0.01-0.20) K/uL PT (9.0-12.0) Seconds INR (0.9-1.1) APTT (21.0-31.0) Seconds PTT Ratio Sodium 136 (136-145) mmol/L Potassium 3.7 (3.5-5.1) mmol/L Chloride 103 (98-107) mmol/L Carbon Dioxide 21 (21-32) mmol/L Anion Gap 12 H (3-11) BUN 21 (6-23) mg/dl Creatinine 0.98 (0.6-1.2) mg/dl Est Cr Clr Drug Dosing 65.3 ml/min Est GFR ( Amer) 67.3 ml/min Est GFR (Non-Af Amer) 58.0 ml/min BUN/Creatinine Ratio 21.4 H (10-20) Glucose 209 H (70-99(Fasting)) mg/dl Calcium 8.7 (8.6-10.3) mg/dl Magnesium 1.2 L (1.7-2.4) mg/dl Total Bilirubin 0.7 (0.2-1.0) mg/dl AST 29 (13-39) U/L ALT 23 (7-52) U/L Alkaline Phosphatase 63 (34-104) U/L Troponin I High Sens 16.6 H (0-14) pg/ml Total Protein 7.6 (6.0-8.3) gm/dl Albumin 3.9 (3.4-5.0) gm/dl Globulin 3.7 (2.5-4.0) gm/dl Albumin/Globulin Ratio 1.1 (0.9-2) TSH 6.796 H (0.300-4.500) uIu/ml SARS-CoV-2, RNA, NAAT (NEGATIVE) Administered Medications Acetaminophen (Acetaminophen 325 Mg Tab) 650 mg PO Q4H PRN PRN Reason: Pain or Fever Stop: 07/26/22 11:37 Last Admin: 06/27/22 06:12 Dose: 650 mg Documented By: STEPHANIE Apixaban (Apixaban 5 Mg Tablet) 5 mg PO BID BRITTNEY Stop: 07/26/22 21:29 Last Admin: 06/27/22 09:03 Dose: 5 mg Documented By: Admin: 06/26/22 21:47 Dose: 5 mg Documented By: STEPHANIE Levothyroxine Sodium (Levothyroxine Sodium 125 Mcg Tablet) 125 mcg PO DAILYBB BRITTNEY Stop: 07/27/22 06:29 Last Admin: 06/27/22 06:13 Dose: 125 mcg Documented By: STEPHANIE Magnesium Oxide (Magnesium Oxide 400 Mg Tab) 400 mg PO QAM BRITTNEY Stop: 07/27/22 09:29 Last Admin: 06/27/22 09:48 Dose: 400 mg Documented By: VLADIMIR Metoprolol Tartrate (Metoprolol Tartrate 25 Mg Tab) 25 mg PO BID BRITTNEY Stop: 07/26/22 20:59 Last Admin: 06/27/22 09:03 Dose: 25 mg Documented By: Admin: 06/26/22 20:52 Dose: 25 mg Documented By: STEPHANIE Multivitamins/Minerals (Cerovite Adv Formula Tab) 1 tab PO DAILY BRITTNEY Stop: 07/27/22 08:59 Last Admin: 06/27/22 09:03 Dose: 1 tab Documented By: VLADIMIR Pantoprazole Sodium (Pantoprazole 40 Mg Tab) 40 mg PO DAILY BRITTNEY Stop: 07/27/22 08:59 Last Admin: 06/27/22 09:03 Dose: 40 mg Documented By: VLADIMIR Potassium Chloride (Potassium Chloride Crtab 20 Meq Tabcr) 20 meq PO DAILY BRITTNEY Stop: 07/27/22 08:59 Last Admin: 06/27/22 09:04 Dose: 20 meq Documented By: VLADIMIR Rosuvastatin Calcium (Rosuvastatin Calcium 5 Mg Tab) 5 mg PO DAILY BRITTNEY Stop: 07/27/22 08:59 Last Admin: 06/27/22 09:04 Dose: 5 mg Documented By: VLADIMIR Sotalol HCl (Sotalol Hcl 80 Mg Tab) 80 mg PO BID BRITTNEY Stop: 07/26/22 16:59 Last Admin: 06/27/22 09:04 Dose: 80 mg Documented By: Admin: 06/26/22 17:37 Dose: 80 mg Documented By: CLAUDETTE Co-signed By: FLAKITO Vitamin D (Cholecalciferol 1,000 Units 25 Mcg Tab) 2,000 units PO DAILY BRITTNEY Stop: 07/27/22 08:59 Last Admin: 06/27/22 09:03 Dose: 2,000 units Documented By: VLADIMIR Discontinued Medications Diltiazem HCl (Diltiazem Hcl 5 Mg/Ml 5 Ml Vial) 15 mg IV NOW STA Stop: 06/26/22 09:06 Last Admin: 06/26/22 09:16 Dose: 15 mg Documented By: FRANCINE Co-signed By: HAYDEN Diltiazem HCl (Diltiazem Hcl 5 Mg/Ml 5 Ml Vial) 15 mg IV NOW STA Stop: 06/26/22 16:09 Last Admin: 06/26/22 16:38 Dose: 15 mg Documented By: FLAKITO Co-signed By: ROMMEL Sodium Chloride (Nss) 500 mls @ 999 mls/hr IV .Q31M ONE Stop: 06/26/22 07:54 Last Infusion: 06/26/22 08:08 Dose: 0 mls/hr Documented By: Admin: 06/26/22 07:29 Dose: 999 mls/hr Documented By: FRANCINE Magnesium Sulfate/Dextrose (Magnesium Sulfate / D5w) 1 gm in 100 mls @ 100 mls/hr IV NOW STA Stop: 06/26/22 10:51 Last Infusion: 06/26/22 11:11 Dose: 0 mls/hr Documented By: Admin: 06/26/22 10:12 Dose: 100 mls/hr Documented By: FRANCINE Magnesium Sulfate/Dextrose (Magnesium Sulfate / D5w) 1 gm in 100 mls @ 50 mls/hr IV Q2H BRITTNEY Stop: 06/26/22 12:44 Last Infusion: 06/26/22 13:08 Dose: 0 mls/hr Documented By: Admin: 06/26/22 11:08 Dose: 50 mls/hr Documented By: FRANCINE Magnesium Sulfate/Dextrose (Magnesium Sulfate / D5w) 1 gm in 100 mls @ 50 mls/hr IV Q2H BRITTNEY Stop: 06/27/22 00:59 Last Infusion: 06/27/22 02:02 Dose: 0 mls/hr Documented By: Admin: 06/27/22 00:00 Dose: 50 mls/hr Documented By: Infusion: 06/26/22 23:50 Dose: 50 mls/hr Documented By: Admin: 06/26/22 21:50 Dose: 50 mls/hr Documented By: STEPHANIE Metoprolol Tartrate (Metoprolol Tartrate 1 Mg/Ml Vial) 5 mg IV NOW STA Stop: 06/26/22 07:25 Last Admin: 06/26/22 07:27 Dose: 5 mg Documented By: FRANCINE Metoprolol Tartrate (Metoprolol Tartrate 1 Mg/Ml Vial) 5 mg IV NOW STA Stop: 06/26/22 07:46 Last Admin: 06/26/22 07:50 Dose: 5 mg Documented By: FRANCINE Metoprolol Tartrate (Metoprolol Tartrate 1 Mg/Ml Vial) 5 mg IV NOW STA Stop: 06/26/22 08:00 Last Admin: 06/26/22 08:02 Dose: 5 mg Documented By: FRANCINE Metoprolol Tartrate (Metoprolol Tartrate 50 Mg Tab) 50 mg PO NOW STA Stop: 06/26/22 09:13 Last Admin: 06/26/22 09:15 Dose: 50 mg Documented By: FRANCINE Metoprolol Tartrate (Metoprolol Tartrate 25 Mg Tab) 25 mg PO ONE ONE Stop: 06/26/22 13:17 Last Admin: 06/26/22 13:48 Dose: 25 mg Documented By: CLAUDETTE Co-signed By: FLAKITO Potassium Chloride (Potassium Chloride Crtab 20 Meq Tabcr) 20 meq PO NOW STA Stop: 06/26/22 10:48 Last Admin: 06/26/22 11:07 Dose: 20 meq Documented By: FRANCINE Potassium Chloride (Potassium Chloride Crtab 20 Meq Tabcr) 40 meq PO NOW STA Stop: 06/27/22 09:29 Last Admin: 06/27/22 09:46 Dose: 40 meq Documented By: SARAVANAN Imaging Data Radiologist's Impression: Chest X-Ray 06/26/22 07:03 XR chest 1V portable CLINICAL HISTORY: Chest pain, nonspecific COMPARISON STUDY: Chest radiograph March 01, 2022. FINDINGS: Lung volumes are normal. Lungs are clear. There is no pneumothorax or pleural effusion. Cardiac size is normal. Mediastinal contours are normal. There is no evidence for pulmonary edema. IMPRESSION: No acute cardiopulmonary findings. No significant change in appearance of the chest. ACT 112: Negative or not required by law. Electronically signed by: Jf Haider M.D. 06/26/2022 7:21 AM Discharge Plan Visit Data Chief Complaint: Tachycardia Stated Complaint: HIGH HEART RATE,NAUSEA,TWINGE IN CHEST ED Provider: Wallace Quesada Discharge Problem: Atrial fibrillation with rapid ventricular response Patient Disposition: Admitted As Inpatient Discharge Instructions Interventions: ED Discharge Assessment Last Done: 06/26/22 10:47
[2022-06-26 07:33] LABS: Basophils # (auto) 0.05 K/uL (0-0.2); Basophils % (auto) 0.6 %; Eosinophils # (auto) 0.25 K/uL (0-0.50); Eosinophils % (auto) 2.8 %; Hematocrit (blood only) 41.7 % (37.0-47.0); Immature Granulocytes # (auto) 0.03 K/uL (0.01-0.20); Immature Granulocytes % (auto) 0.3 %; Lymphocytes # (auto) 1.91 K/uL (1.2-3.4); Lymphocytes % (auto) 21.3 %; Mean Corpuscular Hemoglobin 29.6 pg (25.0-34.0); Mean Corpuscular Hgb Conc 33.6 g/dL (32.0-36.0); Mean Corpuscular Volume 88.2 fL (80.0-100.0); Mean Platelet Volume 9.3 fL (9.4-12.4); Monocytes # (auto) 0.87 K/uL (0.11-0.59); Monocytes % (auto) 9.7 %; Neutrophils # (auto) 5.86 K/uL (1.40-6.50); Neutrophils % (auto) 65.3 %; Platelet Count 292 K/uL (130-400); RDW Coefficient of Variation 13.5 % (11.5-14.5); RDW Standard Deviation 43.6 fL (36.4-46.3); Red Blood Count 4.73 M/uL (4.20-5.40); White Blood Count 8.97 K/ul (4.8-10.8)
[2022-06-26 08:30] LABS: Troponin I High Sensitivity 16.6 pg/ml (0-14)
[2022-06-26 08:39] LABS: INR 1.1 (0.9-1.1); Partial Thromboplastin Time 28.5 Seconds (21.0-31.0); Prothrombin Time 11.9 Seconds (9.0-12.0)
[2022-06-26] MEDS ORDERED: dilTIAZem HCl 5 MG/ML 5 ML VIAL IV STA ×2 (09:05→16:08)
[2022-06-26] MEDS ORDERED: METOPROLOL TARTRATE 50 MG TAB PO STA (09:12)
[2022-06-26] MEDS ORDERED: MAGNESIUM SULFATE / D5W 1 GM/100 ML BAG IV STA (09:52)
[2022-06-26 10:06] LABS: Albumin Level 3.9 gm/dl (3.4-5.0); Bilirubin,Total 0.7 mg/dl (0.2-1.0); Calcium 8.7 mg/dl (8.6-10.3); Potassium 3.7 mmol/L (3.5-5.1)
[2022-06-26 10:12] LABS: Albumin Globulin Ratio 1.1 (0.9-2); BUN Creatinine Ratio 21.4 (10-20); Creatinine Clr Calc Pharmacy 65.3 ml/min; Est GFR (African American) 67.3 ml/min; Globulin 3.7 gm/dl (2.5-4.0); Total Protein 7.6 gm/dl (6.0-8.3)
--- NOTE | 2022-06-26 10:12 | History & Physical Report ---
Date of Service June 26, 2022 Assessment & Plan (1) Atrial fibrillation with rapid ventricular response: Plan: This is a 71 y/o female with PAF who is on chronic AC with Eliquis presented to the ED this morning with recurrence of atrial fibrillation with RVR. Also noted to have hypomagnesemia. Pt received Lopressor x 3 doses, diltiazem x 1 dose in the ED with improved in rate from 140s to 100-110s. 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 May need to adjust levothyroxine dose vs. repeat in 2-4 wks as outpatient. (7) Polyneuropathy: Plan Continue other home medications as appropriate. Pt seen and reviewed with Dr. Patricio. Plan of care reviewed and as discussed above. Code Status: Full code DVT Prophylaxis: already on Eliquis - will continue Cynthia Ca PA-C History of Present Illness Chief Complaint: Palpitations x 2 days Primary Care Provider: Kenneth Arvizu DO This is a 71 y/o female with DM2, PAF, HTN, GERD, hypothyroidism, hypercholesterolemia, open-angle glaucoma, and osteoporosis who presented to the ED today with palpitations. Pt was admitted to [facility] 03/01/22-03/03/22 with new onset atrial fibrillation with RVR after routine outpatient colonscopy. Found to have hypomagnesemia, which was thought related to her colonoscopy prep, and was started on Cardizem gtt. Converted to NSR on 03/02, metoprolol increased, and Eliquis started for AC. Pt most recently saw outpatient cardiology on 06/09/22 and was noted to be having episodes of PAF that were essentially asymptomatic. She was instructed to take an extra dose of metoprolol as needed for episodes of afib with high HR but to come to the ED if it did not resolve within a few hours. Current episode of symptoms started two days ago with nausea and malaise but didn't check her HR/smart watch. Yesterday, she noted palpitations and ongoing nausea - watch revealed that she was in afib with elevated HR so she took an extra metoprolol. She noted some transient improvement of her rate so decided to try to wait it out at home. This morning, when she woke up, she noted ongoing palpitations and mild left chest discomfort, continued nausea and fatigue so decided to come to the ED for evaluation. In the ED, she was noted to be in afib with RVR - rate in the 140s. She has received Lopressor x 3 doses, diltiazem x 1 dose with improvement in her rate from 140s to 100-110. ED provider spoke with cardiology on-call who recommended admission, additional dose of oral metoprolol. Labs again revealed hypomagnesemia, which ED has started repletion for. Pt denies vomiting or significant diarrhea. No fevers or chills. Did have sweats yesterday and this morning. Allergies Allergy/AdvReac Type Severity Reaction Status Date / Time amlodipine [From [facility]] Allergy Intermediate Palpitation Verified 03/01/22 07:47 s olmesartan Allergy Intermediate lips face Verified 03/01/22 07:47 and fingers swollen rosiglitazone Allergy Unknown "swelling" Verified 06/26/22 21:20 Home Medications Medication Instructions Recorded Confirmed Type blood sugar diagnostic ([employer]Touch #200 ea 04/25/21 06/26/22 Rx Verio test strips) pantoprazole 40 mg tablet,delayed 40 mg PO DAILY #90 tabs 05/16/21 06/26/22 Rx release levothyroxine 125 mcg tablet 125 mcg PO DAILY #90 tabs 06/15/21 06/26/22 Rx blood-glucose meter ([employer]Touch #1 ea 07/07/21 06/26/22 Rx Verio IQ Meter kit) lancets ([employer] UltraSoft #200 ea 07/07/21 06/26/22 Rx Lancets) acetaminophen 500 mg tablet 500 mg PO Q6H PRN Pain 08/10/21 06/26/22 History (Tylenol Extra Strength) glimepiride 4 mg tablet 4 mg PO BID 01/18/22 06/26/22 History liraglutide 0.6 mg/0.1 mL (18 mg/3 1.8 mg subcut QAM 02/22/22 06/26/22 History mL) subcutaneous pen injector ([employer] 3-Sudhir) bebwajdd-mfe-szovaf 5 mg-zeaxanth 1 cap PO QAM 02/22/22 06/26/22 History 1 mg-bilberry 7.5 mg-herbal capsule (Macular Health Formula) apixaban 5 mg tablet (Eliquis) 5 mg PO BID #60 tabs 03/02/22 06/26/22 Rx cholecalciferol (vitamin D3) 50 50 mcg PO DAILY 06/26/22 06/26/22 History mcg (2,000 unit) capsule (Vitamin D3) magnesium oxide 400 mg (241.3 mg 400 mg PO QPM 06/26/22 06/26/22 History magnesium) tablet metformin 500 mg tablet,extended 1,000 mg PO QPM 06/26/22 06/26/22 History release 24 hr metformin 500 mg tablet,extended 500 mg PO QAM 06/26/22 06/26/22 History release 24 hr metoprolol tartrate 50 mg tablet 50 mg PO BID 06/26/22 06/26/22 History mv-mn-folic 200 mcg-vit K 15 1 cap PO BID 06/26/22 06/26/22 History mcg-lutein 5 mg-zeaxanthin 1 mg capsule (PreserVision AREDS 2 Plus Multivit) potassium chloride 20 mEq 20 meq PO DAILY 06/26/22 06/26/22 History tablet,extended release rosuvastatin 5 mg tablet 5 mg PO DAILY 06/26/22 06/26/22 History Past Med/Surg History Medical History Acquired deviated nasal septum Allergic rhinitis ASCUS of cervix with negative high risk HPV Deep vein thrombosis 8 YEARS AGO S/P FALLING WITH BRUISING *ON LOVENOX AND COUMADIN FOR SHORT TERM TX Diabetes mellitus, type 2 EKG, abnormal HX OF (CONGENITAL PROBLEM) 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 Frequent UTI GERD (gastroesophageal reflux disease) Glaucoma History of kidney stones History of recurrent UTIs "CAUSED FROM [place]" RECENTLY STOPPED TAKING Hx of peptic ulcer Hypertension Hypomagnesemia Hypothyroidism New onset atrial fibrillation Osteoarthritis Peripheral neuropathy Pyelonephritis Seasonal allergies Sinus bradycardia Vaginal mass vaginal erosion, treated with estrogen cream Vocal cord nodules Surgical History H/O colonoscopy with polypectomy H/O eye surgery RT/LEFT EYE FOR ELEVATED PRESSURE History of bilateral tubal ligation History of bladder surgery BLADDER TACK History of cataract surgery RT/LEFT History of cholecystectomy History of dilatation and curettage History of esophagogastroduodenoscopy (EGD) History of herniorrhaphy History of repair of rotator cuff LEFT History of tooth extraction History of total hysterectomy with bilateral salpingo-oophorectomy (BSO) History of total knee replacement RT S/P fine needle aspiration left breast- fat necrosis 01/2007 Family History Mother Parkinson disease Diabetes Colorectal cancer Hypertension Cancer Grandmother (Maternal) Diabetes Sister Arthritis Father Myelodysplastic syndrome Hypertension Heart disease Grandmother Stroke Denies family history of Ovarian cancer No family history of adverse response to anesthesia No family history of bleeding disorder Allergies Breast cancer Asthma Social History Smoking Status: Never smoker Second Hand Exposure: No; Hx Alcohol Use: No Hx Substance Use: No Preferred Language: Uzbek Communication Ability: Effective Roving Or Yarn Color Checker Required: No Beliefs That Will Affect Care: None marital status: Current Living Situation: Alone current occupational status: retired How many Children do You have: 2 Feels Safe at Home: Yes Safety Concerns: Feels Safe At This Time Assistive Devices: None Review of Systems Review of Systems: All systems reviewed & are unremarkable except as noted in HPI & below Constitutional: + sweats, + fatigue and + anorexia; no fever and no chills Eyes: no diplopia and no worsening vision Ear, Nose, Mouth, Throat: no nasal congestion, no nasal discharge and no sore throat Respiratory: no cough and no dyspnea Cardiovascular: as per Subjective / HPI; no syncope and no edema Gastrointestinal: + nausea; no abdominal pain and no vomiting Genitourinary: no dysuria and no hematuria Musculoskeletal: no neck pain and no muscle weakness Integumentary: no yellowing of the skin Neurologic: no unsteadiness, no dizziness and no headache(s) Psychiatric: no depression and no anxiety Physical Exam Constitutional: well developed and well nourished; no acute distress Eyes: + anicteric sclerae Neck: trachea midline Respiratory: no respiratory distress and no labored breathing Auscultation: lungs clear to auscultation bilaterally; no rales, no rhonchi and no wheezes Cardiovascular: Rate/Rhythm: + tachycardic and + irregularly irregular Vessels: dorsalis pedis pulses present and radial pulses present Extremities: no pedal edema Gastrointestinal (Abdomen): Inspection/Auscultation: normal bowel sounds; abdomen not distended Percussion/Palpation: abdomen soft Musculoskeletal: Head/Neck/Chest: normocephalic, head atraumatic and neck supple Skin: no jaundice Neurologic: moves all extremities; no focal motor deficits and not confused Psychiatric: A+Ox3, euthymic affect Results & Data Results & Data Vital Signs (Past 12 Hours) Vital Signs Pulse Pulse Resp BP BP Pulse Ox O2 Del Method 06/26/22 09:30 105 H 14 148/80 H 97 Room Air 06/26/22 09:02 154 H 18 118/84 93 Room Air 06/26/22 08:32 140 H 19 140/100 94 Room Air 06/26/22 08:03 147 H 21 167/96 H 94 Room Air 06/26/22 08:02 153 H 167/96 H 06/26/22 07:50 149 H 132/114 H 06/26/22 07:30 128 H 20 119/78 93 Room Air 06/26/22 07:27 158 H 138/101 H 06/26/22 07:11 153 H 06/26/22 06:36 104 H 20 109/71 96 Room Air Laboratory Results Laboratory Results - last 24 hr 06/26/22 06/26/22 06/26/22 06:50 06:52 06:52 WBC 8.97 RBC 4.73 Hgb 14.0 Hct 41.7 MCV 88.2 MCH 29.6 MCHC 33.6 RDW Std Deviation 43.6 RDW Coeff of Devendra 13.5 Plt Count 292 MPV 9.3 L Immature Gran % (Auto) 0.3 Neut % (Auto) 65.3 Lymph % (Auto) 21.3 [place] % (Auto) 9.7 Eos % (Auto) 2.8 Baso % (Auto) 0.6 Neut # (Auto) 5.86 Lymph # (Auto) 1.91 [place] # (Auto) 0.87 H Eos # (Auto) 0.25 Baso # (Auto) 0.05 Immature Gran # (Auto) 0.03 PT 11.9 INR 1.1 APTT 28.5 PTT Ratio 1.0 Sodium Potassium Chloride Carbon Dioxide Anion Gap BUN Creatinine Est Cr Clr Drug Dosing Est GFR ( Amer) Est GFR (Non-Af Amer) BUN/Creatinine Ratio Glucose Calcium Magnesium Total Bilirubin AST ALT Alkaline Phosphatase Troponin I High Sens Total Protein Albumin Globulin Albumin/Globulin Ratio TSH SARS-CoV-2, RNA, NAAT NEGATIVE 06/26/22 06/26/22 06/26/22 06:52 06:52 06:52 WBC RBC Hgb Hct MCV MCH MCHC RDW Std Deviation RDW Coeff of Devendra Plt Count MPV Immature Gran % (Auto) Neut % (Auto) Lymph % (Auto) [place] % (Auto) Eos % (Auto) Baso % (Auto) Neut # (Auto) Lymph # (Auto) [place] # (Auto) Eos # (Auto) Baso # (Auto) Immature Gran # (Auto) PT INR APTT PTT Ratio Sodium 136 Potassium 3.7 Chloride 103 Carbon Dioxide 21 Anion Gap 12 H BUN Pending Creatinine Pending Est Cr Clr Drug Dosing Pending Est GFR ( Amer) Pending Est GFR (Non-Af Amer) Pending BUN/Creatinine Ratio Pending Glucose Pending Calcium 8.7 Magnesium 1.2 L Total Bilirubin 0.7 AST Pending ALT Pending Alkaline Phosphatase Pending Troponin I High Sens 16.6 H Total Protein Pending Albumin 3.9 Globulin Pending Albumin/Globulin Ratio Pending TSH 6.796 H SARS-CoV-2, RNA, NAAT Diagnostic Findings Chest X-Ray 06/26/22 07:03 XR chest 1V portable CLINICAL HISTORY: Chest pain, nonspecific COMPARISON STUDY: Chest radiograph March 01, 2022. FINDINGS: Lung volumes are normal. Lungs are clear. There is no pneumothorax or pleural effusion. Cardiac size is normal. Mediastinal contours are normal. There is no evidence for pulmonary edema. IMPRESSION: No acute cardiopulmonary findings. No significant change in appearance of the chest. Medications Administered Discontinued Medications Diltiazem HCl (Diltiazem Hcl 5 Mg/Ml 5 Ml Vial) 15 mg IV NOW STA Stop: 06/26/22 09:06 Last Admin: 06/26/22 09:16 Dose: 15 mg Documented By: FRANCINE Co-signed By: HAYDEN Sodium Chloride (Nss) 500 mls @ 999 mls/hr IV .Q31M ONE Stop: 06/26/22 07:54 Last Infusion: 06/26/22 08:08 Dose: 0 mls/hr Documented By: Admin: 06/26/22 07:29 Dose: 999 mls/hr Documented By: FRANCINE Metoprolol Tartrate (Metoprolol Tartrate 1 Mg/Ml Vial) 5 mg IV NOW STA Stop: 06/26/22 07:25 Last Admin: 06/26/22 07:27 Dose: 5 mg Documented By: FRANCINE Metoprolol Tartrate (Metoprolol Tartrate 1 Mg/Ml Vial) 5 mg IV NOW STA Stop: 06/26/22 07:46 Last Admin: 06/26/22 07:50 Dose: 5 mg Documented By: FRANCINE Metoprolol Tartrate (Metoprolol Tartrate 1 Mg/Ml Vial) 5 mg IV NOW STA Stop: 06/26/22 08:00 Last Admin: 06/26/22 08:02 Dose: 5 mg Documented By: FRANCINE Metoprolol Tartrate (Metoprolol Tartrate 50 Mg Tab) 50 mg PO NOW STA Stop: 06/26/22 09:13 Last Admin: 06/26/22 09:15 Dose: 50 mg Documented By: FRANCINE Code Status & VTE Plan VTE Prophylaxis Plan VTE Prophylaxis will be ordered: Yes Supervising Physician Co-Signing Physician Notes Patient was seen and examined independently. Chart reviewed. Case discussed with KAROLINA
[2022-06-26] MEDS ORDERED: MAGNESIUM SULFATE / D5W 1 GM/100 ML BAG IV SCH (10:45)
[2022-06-26] MEDS ORDERED: POTASSIUM CHLORIDE CRTAB 20 MEQ TABCR PO STA (10:47)
[2022-06-26] MEDS ORDERED: ACETAMINOPHEN 325 MG TAB PO PRN (11:38)
--- NOTE | 2022-06-26 12:50 | Cardiology Consultation ---
Date of Consultation June 26, 2022 Assessment & Plan (1) Atrial fibrillation with rapid ventricular response: (2) Hypomagnesemia: (3) SVT (supraventricular tachycardia): (4) PVCs (premature ventricular contractions): Plan Symptomatic atrial fibrillation with a rapid ventricular response. - Additional 25 mg oral metoprolol now - Supplement and maintain electrolytes. - Continue anticoagulation without interruption - Continuous telemetry monitoring. - NPO after midnight for possible direct current cardioversion in the AM - ? Switch metoprolol to antiarrhythmic therapy - sotalol 80 mg twice a day in AM. Supervising Physician Co-Signing Physician Notes 71-year-old female admitted with palpitations paroxysmal atrial fibrillation with rapid ventricular response. Heart rate trending upward this afternoon. She received 50 mg of metoprolol followed by a second 25 mg dose after lunch. Denies any chest discomfort. Current episode of atrial fibrillation lasting more than 24 hours. She is chronically anticoagulated with Eliquis. Denies any noncompliance. PE: VSS, tachycardic. General: NAD, awake alert and oriented. Heart: Irregular rhythm, tachycardic, normal S1-S2. No murmur. Lungs: Clear bilateral, no rales, rhonchi, wheeze. Extremities: No edema. A/P: Agree with above PA-C history, physical exam, assessment and plan. I will give 15mg of intravenous Cardizem x1 now due to A-fib with RVR heart rates in the 140s-150. I had a long discussion with the patient and her daughter regarding the risk versus benefit of antiarrhythmic therapy. Patient agreeable to sotalol 80 mg twice daily. She will receive her first dose at 5 PM. Continue metoprolol 25 mg twice daily for the time being. Consider external direct-current cardioversion during hospitalization pending clinical course. Continue oral anticoagulation with Eliquis uninterrupted. Replace electrolytes as indicated. Repeat ECG in a.m. after second dose of sotalol then daily. History of Present Illness Reason for Consultation: Atrial fibrillation with a rapid ventricular response. Requesting Physician: Roby Attending Physician: Sintia History of Present Illness Ms. Lucila Ledesma is a 71 year old female who presented to the [facility] ER in the morning on 06/26/2022. Patient notes development of nausea and malaise Sunday night. Yesterday, she noted palpitations with ongoing nausea, noting eating much yesterday. Last night she had some diarrhea that she attributes to metformin. At first she did not check her smart watch however yesterday she observed elevated heart rates into the 160's. She, as directed by Dr. Ken, took extra metoprolol without improvement. This morning, due to ongoing symptoms as well as some mild chest discomfort just left of the lower sternal border, that patient presented to the ER further evaluation and treatment. EKG on presentation reveal atrial fibrillation with rapid ventricular response (157 bpm) with premature ventricular or aberrantly conducted complexes, left axis deviation, left ventricular hypertrophy with QRS widening, arked ST abnormality, possible inferolateral subendocardial injury. QTc 501 ms. High sensitivity troponin I was mildly elevated at 16.6 pg/mL Magnesium was low at 1.2 mg/dL. Potassium was low normal at 3.7 mmol/L. H&H were normal at 14.0 and 41.7. CXR with no acute cardiopulmonary findings. Patient 5 mg of IV Lopressor x 3 doses, 15 mg of IV diltiazem x 1 dose, 20 mEq of oral potassium chloride, 2 grams of IV magnesium, and 50 mg of oral metoprolol Patient prescribed Eliquis anticoagulation since February, without interruption. Patient notes that her smart watch has reported an 18% atrial fibrillation burden last week and a 20% atrial fibrillation this week. Problem List: New onset atrial fibrillation following colonoscopy prep, with associated electrolyte abnormalities [id number] score of 3 (age, female, HTN)- on Eliquis Frequent PVCs, 13.8% burden per johno, 02/2022- minimally symptomatic Hypertension Hyperlipidemia Type 2 diabetes Hypothyroidism GERD History of DVT after 2013 History of peptic ulcer without GI bleed, 2013 History of mild LAUREN not requiring CPAP therapy Open-angle glaucoma Osteoporosis Allergies Allergy/AdvReac Type Severity Reaction Status Date / Time amlodipine [From [facility]] Allergy Intermediate Palpitation Verified 03/01/22 07:47 s olmesartan Allergy Intermediate lips face Verified 03/01/22 07:47 and fingers swollen rosiglitazone Allergy Unknown "swelling" Verified 06/26/22 21:20 Home Medications Medication Instructions Recorded Confirmed Type blood sugar diagnostic (FlexisTouch #200 ea 04/25/21 06/26/22 Rx Verio test strips) pantoprazole 40 mg tablet,delayed 40 mg PO DAILY #90 tabs 05/16/21 06/26/22 Rx release levothyroxine 125 mcg tablet 125 mcg PO DAILY #90 tabs 06/15/21 06/26/22 Rx blood-glucose meter (OneTouch #1 ea 07/07/21 06/26/22 Rx Verio IQ Meter kit) lancets (OneTouch UltraSoft #200 ea 07/07/21 06/26/22 Rx Lancets) acetaminophen 500 mg tablet 500 mg PO Q6H PRN Pain 08/10/21 06/26/22 History (Tylenol Extra Strength) glimepiride 4 mg tablet 4 mg PO BID 01/18/22 06/26/22 History liraglutide 0.6 mg/0.1 mL (18 mg/3 1.8 mg subcut QAM 02/22/22 06/26/22 History mL) subcutaneous pen injector (Transfercar 3-Sudhir) [id number] 5 mg-zeaxanth 1 cap PO QAM 02/22/22 06/26/22 History 1 mg-bilberry 7.5 mg-herbal capsule (Macular Health Formula) apixaban 5 mg tablet (Eliquis) 5 mg PO BID #60 tabs 03/02/22 06/26/22 Rx cholecalciferol (vitamin D3) 50 50 mcg PO DAILY 06/26/22 06/26/22 History mcg (2,000 unit) capsule (Vitamin D3) magnesium oxide 400 mg (241.3 mg 400 mg PO QPM 06/26/22 06/26/22 History magnesium) tablet metformin 500 mg tablet,extended 1,000 mg PO QPM 06/26/22 06/26/22 History release 24 hr metformin 500 mg tablet,extended 500 mg PO QAM 06/26/22 06/26/22 History release 24 hr metoprolol tartrate 50 mg tablet 50 mg PO BID 06/26/22 06/26/22 History mv-mn-folic 200 mcg-vit K 15 1 cap PO BID 06/26/22 06/26/22 History mcg-lutein 5 mg-zeaxanthin 1 mg capsule (PreserVision AREDS 2 Plus Multivit) potassium chloride 20 mEq 20 meq PO DAILY 06/26/22 06/26/22 History tablet,extended release rosuvastatin 5 mg tablet 5 mg PO DAILY 06/26/22 06/26/22 History Patient History Medical History Acquired deviated nasal septum Allergic rhinitis ASCUS of cervix with negative high risk HPV Deep vein thrombosis 8 YEARS AGO S/P FALLING WITH BRUISING *ON LOVENOX AND COUMADIN FOR SHORT TERM TX Diabetes mellitus, type 2 EKG, abnormal HX OF (CONGENITAL PROBLEM) 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 Frequent UTI GERD (gastroesophageal reflux disease) Glaucoma History of kidney stones History of recurrent UTIs "CAUSED FROM INVOKANA" RECENTLY STOPPED TAKING Hx of peptic ulcer Hypertension Hypomagnesemia Hypothyroidism New onset atrial fibrillation Osteoarthritis Peripheral neuropathy Pyelonephritis Seasonal allergies Sinus bradycardia Vaginal mass vaginal erosion, treated with estrogen cream Vocal cord nodules Surgical History H/O colonoscopy with polypectomy H/O eye surgery RT/LEFT EYE FOR ELEVATED PRESSURE History of bilateral tubal ligation History of bladder surgery BLADDER TACK History of cataract surgery RT/LEFT History of cholecystectomy History of dilatation and curettage History of esophagogastroduodenoscopy (EGD) History of herniorrhaphy History of repair of rotator cuff LEFT History of tooth extraction History of total hysterectomy with bilateral salpingo-oophorectomy (BSO) History of total knee replacement RT S/P fine needle aspiration left breast- fat necrosis 01/2007 Family History Mother Parkinson disease Diabetes Colorectal cancer Hypertension Cancer Grandmother (Maternal) Diabetes Sister Arthritis Father Myelodysplastic syndrome Hypertension Heart disease Grandmother Stroke Denies family history of Ovarian cancer No family history of adverse response to anesthesia No family history of bleeding disorder Allergies Breast cancer Asthma Social History Smoking Status: Never smoker Second Hand Exposure: No; Hx Alcohol Use: No Hx Substance Use: No Preferred Language: Armenian Communication Ability: Effective Energy Systems Engineer Required: No Beliefs That Will Affect Care: None marital status: Current Living Situation: Alone current occupational status: retired How many Children do You have: 2 Feels Safe at Home: Yes Safety Concerns: Feels Safe At This Time Assistive Devices: None Review of Systems Review of Systems: Complete Review of Systems: Constitutional: No abrupt weight change. See above. No fevers. No recent colds. No recent medication changes. HEENT: No amaurosis fugax. Status post cataract extraction. Pulmonary: See above. Cardiac: See above. GI/Abd: No dysphagia. No melena or hematochezia. No liver or kidney problems. Vascular: No history of AAA. No claudication. Hematologic: On Eliquis. Musculoskeletal: Arthritis. Left rotator cuff surgery. Right knee surgery. Skin: No rash. Neurologic: No history of TIA or CVA. No history of seizure. Female : Status post D&C, tubal, partial hysterectomy. Endocrine: T2DM. UTI end of May treated with Marcrobid. Complete Review of Systems is as stated above, negative, or noncontributory. Physical Exam Physical Exam: Examined in the bedside chair General: A&Ox3. NAD. HENT: Normocephalic. Atraumatic. Eyes: PER. Conjunctiva pink, sclera clear. Neck: No carotid bruits. No overt JVD. Heart: Distant heart sounds, irregularly irregular, 120 bpm. No murmur. Lungs: Clear to auscultation. Abdomen: +BS. Extremities: No clubbing, cyanosis, or significant edema. Limited neurological examination is without focal deficits. Results & Data Vital Signs (Past 12 Hours) Vital Signs Temp Pulse Pulse Resp BP BP Pulse Ox 06/26/22 11:20 36.5 C 118 H 18 124/81 94 06/26/22 11:00 117 H 17 117/69 94 06/26/22 10:30 126 H 18 103/81 92 06/26/22 10:17 118 H 18 118/77 93 06/26/22 09:30 105 H 14 148/80 H 97 06/26/22 09:02 154 H 18 118/84 93 06/26/22 08:32 140 H 19 140/100 94 06/26/22 08:03 147 H 21 167/96 H 94 06/26/22 08:02 153 H 167/96 H 06/26/22 07:50 149 H 132/114 H 06/26/22 07:30 128 H 20 119/78 93 06/26/22 07:27 158 H 138/101 H 06/26/22 07:11 153 H 06/26/22 06:36 104 H 20 109/71 96 O2 Del Method 06/26/22 11:20 Room Air 06/26/22 11:00 Room Air 06/26/22 10:30 Room Air 06/26/22 10:17 Room Air 06/26/22 09:30 Room Air 06/26/22 09:02 Room Air 06/26/22 08:32 Room Air 06/26/22 08:03 Room Air 06/26/22 08:02 06/26/22 07:50 06/26/22 07:30 Room Air 06/26/22 07:27 06/26/22 07:11 06/26/22 06:36 Room Air Laboratory Results Cardiac Enzymes 06/26/22 Range/Units 06:52 AST 29 (13-39) U/L Troponin I High Sens 16.6 H (0-14) pg/ml Coagulation 06/26/22 Range/Units 06:52 PT 11.9 (9.0-12.0) Seconds APTT 28.5 (21.0-31.0) Seconds CBC 06/26/22 Range/Units 06:52 WBC 8.97 (4.8-10.8) K/ul RBC 4.73 (4.20-5.40) M/uL Hgb 14.0 (12.0-16.0) g/dl Hct 41.7 (37.0-47.0) % Plt Count 292 (130-400) K/uL Neut # (Auto) 5.86 (1.40-6.50) K/uL Lymph # (Auto) 1.91 (1.2-3.4) K/uL [place] # (Auto) 0.87 H (0.11-0.59) K/uL Eos # (Auto) 0.25 (0-0.50) K/uL Baso # (Auto) 0.05 (0-0.2) K/uL Comprehensive Metabolic Panel 06/26/22 Range/Units 06:52 Sodium 136 (136-145) mmol/L Potassium 3.7 (3.5-5.1) mmol/L Chloride 103 (98-107) mmol/L Carbon Dioxide 21 (21-32) mmol/L BUN 21 (6-23) mg/dl Creatinine 0.98 (0.6-1.2) mg/dl Glucose 209 H (70-99(Fasting)) mg/dl Calcium 8.7 (8.6-10.3) mg/dl AST 29 (13-39) U/L ALT 23 (7-52) U/L Alkaline Phosphatase 63 (34-104) U/L Total Protein 7.6 (6.0-8.3) gm/dl Albumin 3.9 (3.4-5.0) gm/dl Intake and Output 06/25/22 06/26/22 06/26/22 22:59 06:59 14:59 Intake Total 600 / 600 Balance 600 / 600 Intake: IV 600 / 600 Magnesium Sulfate / D5w 1 gm In 100 / 100 100 ml @ 100 mls/hr IV NOW STA Rx#:[id number] Sodium Chloride 0.9% 500 ml @ 500 / 500 999 mls/hr IV .Q31M ONE Rx#: [id number] Other: Weight 107.5 kg 108.5 kg Weight Measurement Method Chair Scale Standing Scale Patient Weight 06/27/22 06:59 Weight 108.5 kg Diagnostic Findings May 01, 2022 Lexiscan Interpretation Summary (as per Dr. Ken): Gated SPECT imaging reveals normal myocardial thickening and wall motion. The left ventricular ejection fraction was calculated to be 67%. Lexiscan nuclear cardiac stress test negative for ischemia. May 01, 2022 TTE Interpretation Summary (as per Dr. Ken): The examination is adequate to evaluate the referral indication. Requested as a limited study. The qualitative LV ejection fraction is 60-64% (normal). The LV wall thickness is mildly increased (concentric). The left ventricular cavity size is normal. The left ventricular wall motion is normal. EKG on June 09, 2022, while on metoprolol tartrate 50 mg twice a day, revealed sinus rhythm at 84 bpm with marked sinus arrhythmia, left ventricular hypertrophy with secondary QRS widening and repolarization abnormality. QT/QTc: 394/465 ms.
[2022-06-26] MEDS ORDERED: METOPROLOL TARTRATE 25 MG TAB PO ONE (13:16)
[2022-06-26] MEDS: SOTALOL HCL 80 MG TAB PO SCH (17:37)
[2022-06-26 18:42] LABS: Magnesium 1.6 mg/dl (1.7-2.4)
[2022-06-26 19:01] LABS: Troponin I High Sensitivity 10.1 pg/ml (0-14)
[2022-06-26] MEDS: METOPROLOL TARTRATE 25 MG TAB PO SCH (20:52)
[2022-06-26] MEDS: APIXABAN 5 MG TABLET PO SCH (21:47)
[2022-06-26] MEDS: MAGNESIUM SULFATE / D5W 1 GM/100 ML BAG IV SCH (21:50)
[2022-06-27] MEDS: MAGNESIUM SULFATE / D5W 1 GM/100 ML BAG IV SCH
[2022-06-27] MEDS: LEVOTHYROXINE SODIUM 125 MCG TABLET PO SCH (06:13)
[2022-06-27 06:39] LABS: Hematocrit (blood only) 35.2 % (37.0-47.0); Hemoglobin 11.9 g/dl (12.0-16.0); Mean Corpuscular Hemoglobin 29.8 pg (25.0-34.0); Mean Corpuscular Hgb Conc 33.8 g/dL (32.0-36.0); Mean Corpuscular Volume 88.2 fL (80.0-100.0); Mean Platelet Volume 9.2 fL (9.4-12.4); Platelet Count 226 K/uL (130-400); RDW Coefficient of Variation 13.5 % (11.5-14.5); RDW Standard Deviation 43.6 fL (36.4-46.3); Red Blood Count 3.99 M/uL (4.20-5.40)
[2022-06-27 07:28] LABS: BUN Creatinine Ratio 27.8 (10-20); Calcium 8.1 mg/dl (8.6-10.3); Creatinine Clr Calc Pharmacy 84.2 ml/min; Est GFR (African American) 87.3 ml/min; Est GFR (Non-African American) 75.3 ml/min; Magnesium 1.8 mg/dl (1.7-2.4); Potassium 3.5 mmol/L (3.5-5.1)
[2022-06-27] MEDS ORDERED: NON-FORMULARY MEDICATION (Mv-Mn-Lutein-Zeax-Bilber-Hb277 [Macular Health Formula] 5-1-7.5 PO SCH (09:00)
[2022-06-27] MEDS: CHOLECALCIFEROL 1,000 UNITS 25 MCG TAB PO SCH (09:03)
[2022-06-27] MEDS: METOPROLOL TARTRATE 25 MG TAB PO SCH ×2 (09:03→21:03)
[2022-06-27] MEDS: APIXABAN 5 MG TABLET PO SCH ×2 (09:03→21:04)
[2022-06-27] MEDS: CEROVITE ADV FORMULA TAB PO SCH (09:03)
[2022-06-27] MEDS: PANTOprazole 40 MG TAB PO SCH (09:03)
[2022-06-27] MEDS: POTASSIUM CHLORIDE CRTAB 20 MEQ TABCR PO SCH (09:04)
[2022-06-27] MEDS: SOTALOL HCL 80 MG TAB PO SCH ×2 (09:04→21:04)
[2022-06-27] MEDS: ROSUVASTATIN CALCIUM 5 MG TAB PO SCH (09:04)
[2022-06-27] MEDS ORDERED: POTASSIUM CHLORIDE CRTAB 20 MEQ TABCR PO STA (09:28)
[2022-06-27] MEDS: MAGNESIUM OXIDE 400 MG TAB PO SCH ×2 (09:48→21:04)
--- NOTE | 2022-06-27 10:39 | Cardiology Progress Note ---
Date of Service June 27, 2022 Assessment & Plan (1) Atrial fibrillation with rapid ventricular response: (2) Hypomagnesemia: (3) SVT (supraventricular tachycardia): (4) PVCs (premature ventricular contractions): Plan Presentation with symptomatic atrial fibrillation with a rapid ventricular response status post spontaneous conversion on 06/26/2022 at 2154 without clinical sequela, following administration of sotalol OK to feed. Continue sotalol and metoprolol. Check EKG Maintain electrolytes. Continue telemetry monitoring. Continue anticoagulation without interruption Admission and Anticipated Discharge Date Admission Date: June 26, 2022 Supervising Physician Co-Signing Physician Notes 71-year-old female admitted with palpitations paroxysmal atrial fibrillation with rapid ventricular response. Converted to sinus rhythm last night. Metoprolol reduced to 25 mg twice daily. Currently receiving sotalol load, 80 mg twice daily. Feeling much better today. No chest discomfort or palpitations. PE: VSS. General: NAD, awake alert and oriented. Heart: Regular rhythm, normal S1-S2. No murmur. Lungs: Clear bilateral, no rales, rhonchi, wheeze. Extremities: No edema. A/P: Agree with above PA-C history, physical exam, assessment and plan. Continue sotalol 80 mg twice daily with repeat ECG in a.m. approximately 2 hours after dose. Continue Eliquis 5 mg twice daily and metoprolol as ordered. Replace electrolytes as indicated. Subjective Patient seen and examined. Chart, medications, and telemetry reviewed. Patient feels substantially better this morning. Nausea resolved. Palpitations resolved. Breathing has improved. No further chest pain. Continuous automobile assembler reveals spontaneous conversion from atrial fibrillation to sinus rhythm at 2154, without significant conversion pause. Brief episodes of bigeminy reported around that time. Patient currently in sinus rhythm with frequent PVCs which were noted to be present prior to hospitalization. EKG on 06/26/2022 at 20:46:58 revealed sinus rhythm at 92 bpm with sinus arrhythmia, occasional premature ventricular complexes, left ventricular hypertrophy with QRS widening. QTc 469 ms. EKG not available for review this morning. Review of Systems Review of Systems: Complete Review of Systems: Constitutional: No abrupt weight change. See above. No fevers. No recent colds. No recent medication changes. HEENT: No amaurosis fugax. Status post cataract extraction. Pulmonary: See above. Cardiac: See above. GI/Abd: No dysphagia. No melena or hematochezia. No liver or kidney problems. Vascular: No history of AAA. No claudication. Hematologic: On Eliquis. Musculoskeletal: Arthritis. Left rotator cuff surgery. Right knee surgery. Skin: No rash. Neurologic: No history of TIA or CVA. No history of seizure. Female : Status post D&C, tubal, partial hysterectomy. Endocrine: T2DM. UTI end of May treated with Marcrobid. Complete Review of Systems is as stated above, negative, or noncontributory. Physical Exam Physical Exam: Examined in the bedside chair General: A&Ox3. NAD. HENT: Normocephalic. Atraumatic. Eyes: PER. Conjunctiva pink, sclera clear. Neck: No carotid bruits. No overt JVD. Heart: Regular with occasional ectopy. No murmur. Lungs: Clear to auscultation. Abdomen: +BS. Extremities: No clubbing, cyanosis, or significant edema. Limited neurological examination is without focal deficits. Results & Data Vital Signs (Past 12 Hours) Vital Signs Temp Pulse Resp BP Pulse Ox O2 Del Method 06/27/22 08:09 36.5 C 73 18 100/65 96 Room Air 06/27/22 04:00 36.6 C 95 H 18 125/85 94 Room Air 06/26/22 22:57 36.6 C 76 19 126/77 97 Room Air Laboratory Results Cardiac Enzymes 06/26/22 Range/Units 18:06 Troponin I High Sens 10.1 D (0-14) pg/ml CBC 06/27/22 Range/Units 05:59 WBC 6.30 (4.8-10.8) K/ul RBC 3.99 L (4.20-5.40) M/uL Hgb 11.9 L (12.0-16.0) g/dl Hct 35.2 L (37.0-47.0) % Plt Count 226 (130-400) K/uL Comprehensive Metabolic Panel 06/27/22 Range/Units 05:59 Sodium 136 (136-145) mmol/L Potassium 3.5 (3.5-5.1) mmol/L Chloride 106 (98-107) mmol/L Carbon Dioxide 23 (21-32) mmol/L BUN 22 (6-23) mg/dl Creatinine 0.79 (0.6-1.2) mg/dl Glucose 107 H (70-99(Fasting)) mg/dl Calcium 8.1 L (8.6-10.3) mg/dl Intake and Output 06/26/22 06/27/22 06/27/22 22:59 06:59 14:59 Intake Total 610 / 1510 200 / 1510 Balance 610 / 1510 200 / 1510 Intake: IV 200 / 900 Magnesium Sulfate / D5w 1 gm In 200 / 200 100 ml @ 50 mls/hr IV Q2H BRITTNEY Rx#:[id number] Oral 610 / 610 0 / 610 Other: # Unmeasured Voids 2 Weight 115.1 kg
--- NOTE | 2022-06-27 10:49 | Electrocardiogram Report ---
Test Reason : Blood Pressure : / mmHG Vent. Rate : 092 BPM Atrial Rate : 092 BPM P-R Int : 178 ms QRS Dur : 124 ms QT Int : 380 ms P-R-T Axes : 052 -27 106 degrees QTc Int : 469 ms Sinus rhythm with sinus arrhythmia with occasional Premature ventricular complexes Left ventricular hypertrophy with QRS widening and repolarization abnormality Abnormal ECG When compared with ECG of 26-JUN-2022 09:53, (unconfirmed) Sinus rhythm has replaced Atrial fibrillation Confirmed by Balbir Brown ([id number]) on 06/27/2022 10:48:31 AM Referred By: REFERRED SELF Confirmed By:Vance Brown
--- NOTE | 2022-06-27 18:58 | Hospitalist Progress Note ---
Date of Service June 27, 2022 Assessment & Plan (1) Atrial fibrillation with rapid ventricular response: Plan: This is a 71 y/o female with PAF who is on chronic AC with Eliquis presented to the ED this morning with recurrence of atrial fibrillation with RVR. Also noted to have hypomagnesemia. Pt received Lopressor x 3 doses, diltiazem x 1 dose in the ED with improved in rate from 140s to 100-110s. ED provider spoke with on- call corn husker who recommended additional 50 mg of oral metoprolol - Admitted to PCU for monitoring, rate control - Consulted cardiology - Suspect elevated troponin due to demand from RVR - Labs in AM - CBC, BMP, Mag - Continue Eliquis for anticoagulation - Started on sotalol by cardiology- converted to sinus rhythm - monitor ECG daily (2) Hypomagnesemia: Plan: replete and monitor (3) Controlled type 2 diabetes mellitus with neuropathy: Plan: Hold Metformin while pt admitted Insulin sliding scale, diabetic diet (4) GERD (gastroesophageal reflux disease): Plan: Well-controlled on pantoprazole 40 mg daily - will continue (5) Hypertension: (6) Hypothyroidism: Plan: TSH elevated at 6.796, check free T4. May need to adjust levothyroxine dose vs. repeat in 2-4 wks as outpatient. (7) Polyneuropathy: Plan Continue other home medications as appropriate. Code Status: Full code DVT Prophylaxis: on Eliquis Admission and Anticipated Discharge Date Admission Date: June 26, 2022 Subjective Pt seen in follow up of chest pain and palpitations secondary to afib w/RVR Patient feels much better today. Palpitations resolved. Breathing has improved. No further chest bang. Started on sotalol by cardiology. Converted to sinus. Review of Systems Review of Systems: All systems reviewed & are unremarkable except as noted in Subjective Physical Exam Physical Exam: Constitutional:L obese F in no acut e distress Eyes: + anicteric sclera e Neck: thick, supple Respiratory: no respiratory dis tress and no labor ed breathing Ausc ultation: lungs cl ear to auscultatio n bilaterally; no rales, no rhonchi and no wheezes Cardiovascular:L rrr Gastrointestinal ( Abdomen): normal bowel sound s; soft, nontender , obese Musculoskeletal: Head/Neck/Chest: n ormocephalic, head atraumatic and ne ck supple Skin: warm, dry Neurologic: speech fluent, no facial asymmetry, moves all extremit ies Psychiatric: A+Ox3, euthymic af fect Results & Data Results & Data Vital Signs (Past 12 Hours) Vital Signs Temp Pulse Pulse Resp BP Pulse Ox O2 Del Method 06/27/22 16:00 68 06/27/22 15:33 36.3 C L 72 18 108/58 L 96 Room Air 06/27/22 12:10 36.5 C 70 18 115/77 95 Room Air 06/27/22 08:09 36.5 C 73 18 100/65 96 Room Air Laboratory Results 06/27/22 06/27/22 06/26/22 Range/Units 05:59 05:59 18:06 WBC 6.30 (4.8-10.8) K/ul RBC 3.99 L (4.20-5.40) M/uL Hgb 11.9 L (12.0-16.0) g/dl Hct 35.2 L (37.0-47.0) % MCV 88.2 (80.0-100.0) fL MCH 29.8 (25.0-34.0) pg MCHC 33.8 (32.0-36.0) g/dL RDW Std Deviation 43.6 (36.4-46.3) fL RDW Coeff of Devendra 13.5 (11.5-14.5) % Plt Count 226 (130-400) K/uL MPV 9.2 L (9.4-12.4) fL Sodium 136 (136-145) mmol/L Potassium 3.5 (3.5-5.1) mmol/L Chloride 106 (98-107) mmol/L Carbon Dioxide 23 (21-32) mmol/L Anion Gap 7 (3-11) BUN 22 (6-23) mg/dl Creatinine 0.79 (0.6-1.2) mg/dl Est Cr Clr Drug Dosing 84.2 ml/min Est GFR ( Amer) 87.3 ml/min Est GFR (Non-Af Amer) 75.3 ml/min BUN/Creatinine Ratio 27.8 H (10-20) Glucose 107 H (70-99(Fasting)) mg/dl Calcium 8.1 L (8.6-10.3) mg/dl Magnesium 1.8 (1.7-2.4) mg/dl Troponin I High Sens 10.1 D (0-14) pg/ml Medications Administered Current Inpatient Medications Acetaminophen (Acetaminophen 325 Mg Tab) 650 mg PO Q4H PRN PRN Reason: Pain or Fever Stop: 07/26/22 11:37 Last Admin: 06/27/22 06:12 Dose: 650 mg Apixaban (Apixaban 5 Mg Tablet) 5 mg PO BID BRITTNEY Stop: 07/26/22 21:29 Last Admin: 06/27/22 09:03 Dose: 5 mg Levothyroxine Sodium (Levothyroxine Sodium 125 Mcg Tablet) 125 mcg PO DAILYBB BRITTNEY Stop: 07/27/22 06:29 Last Admin: 06/27/22 06:13 Dose: 125 mcg Magnesium Oxide (Magnesium Oxide 400 Mg Tab) 400 mg PO QPM BRITTNEY Stop: 07/27/22 20:59 Magnesium Oxide (Magnesium Oxide 400 Mg Tab) 400 mg PO QAM BRITTNEY Stop: 07/27/22 09:29 Last Admin: 06/27/22 09:48 Dose: 400 mg Metoprolol Tartrate (Metoprolol Tartrate 25 Mg Tab) 25 mg PO BID BRITTNEY Stop: 07/26/22 20:59 Last Admin: 06/27/22 09:03 Dose: 25 mg Multivitamins/Minerals (Cerovite Adv Formula Tab) 1 tab PO DAILY BRITTNEY Stop: 07/27/22 08:59 Last Admin: 06/27/22 09:03 Dose: 1 tab Pantoprazole Sodium (Pantoprazole 40 Mg Tab) 40 mg PO DAILY BRITTNEY Stop: 07/27/22 08:59 Last Admin: 06/27/22 09:03 Dose: 40 mg Potassium Chloride (Potassium Chloride Crtab 20 Meq Tabcr) 20 meq PO DAILY BRITTNEY Stop: 07/27/22 08:59 Last Admin: 06/27/22 09:04 Dose: 20 meq Rosuvastatin Calcium (Rosuvastatin Calcium 5 Mg Tab) 5 mg PO DAILY BRITTNEY Stop: 07/27/22 08:59 Last Admin: 06/27/22 09:04 Dose: 5 mg Sotalol HCl (Sotalol Hcl 80 Mg Tab) 80 mg PO BID BRITTNEY Stop: 07/26/22 16:59 Last Admin: 06/27/22 09:04 Dose: 80 mg Vitamin D (Cholecalciferol 1,000 Units 25 Mcg Tab) 2,000 units PO DAILY BRITTNEY Stop: 07/27/22 08:59 Last Admin: 06/27/22 09:03 Dose: 2,000 units
[2022-06-28] MEDS ORDERED: CARBOHYDRATES FOR HYPOGLYCEMIA PO PRN (00:43)
[2022-06-28] MEDS ORDERED: GLUCAGON FOR INJ 1 MG VIAL SQ PRN (00:43)
[2022-06-28] MEDS ORDERED: DEXTROSE 50% 50 ML SYRINGE IV PRN (00:43)
[2022-06-28] MEDS ORDERED: GLUCOSE 40% GEL 15 GM TUBE PO PRN (00:43)
[2022-06-28] MEDS ORDERED: GLUCOSE 10 TAB/TUBE PO PRN (00:43)
[2022-06-28] MEDS: LEVOTHYROXINE SODIUM 125 MCG TABLET PO SCH (05:40)
[2022-06-28 06:42] LABS: Hematocrit (blood only) 34.6 % (37.0-47.0); Hemoglobin 11.9 g/dl (12.0-16.0); Mean Corpuscular Hemoglobin 30.1 pg (25.0-34.0); Mean Corpuscular Hgb Conc 34.4 g/dL (32.0-36.0); Mean Corpuscular Volume 87.4 fL (80.0-100.0); Mean Platelet Volume 9.2 fL (9.4-12.4); Platelet Count 254 K/uL (130-400); RDW Coefficient of Variation 13.4 % (11.5-14.5); RDW Standard Deviation 42.8 fL (36.4-46.3); Red Blood Count 3.96 M/uL (4.20-5.40); White Blood Count 6.92 K/ul (4.8-10.8)
[2022-06-28 07:01] LABS: BUN Creatinine Ratio 24.7 (10-20); Calcium 8.5 mg/dl (8.6-10.3); Est GFR (Non-African American) 77.7 ml/min; Magnesium 1.6 mg/dl (1.7-2.4); Phosphorus 2.5 mg/dl (2.5-4.9); Potassium 3.9 mmol/L (3.5-5.1)
[2022-06-28] MEDS: SOTALOL HCL 80 MG TAB PO SCH ×2 (08:20→19:49)
[2022-06-28] MEDS: CHOLECALCIFEROL 1,000 UNITS 25 MCG TAB PO SCH (08:20)
[2022-06-28] MEDS: ROSUVASTATIN CALCIUM 5 MG TAB PO SCH (08:20)
[2022-06-28] MEDS: APIXABAN 5 MG TABLET PO SCH ×2 (08:20→19:49)
[2022-06-28] MEDS: POTASSIUM CHLORIDE CRTAB 20 MEQ TABCR PO SCH (08:20)
[2022-06-28] MEDS: PANTOprazole 40 MG TAB PO SCH (08:20)
[2022-06-28] MEDS: METOPROLOL TARTRATE 25 MG TAB PO SCH ×2 (08:21→19:49)
[2022-06-28] MEDS: CEROVITE ADV FORMULA TAB PO SCH (08:21)
[2022-06-28] MEDS: MAGNESIUM OXIDE 400 MG TAB PO SCH ×2 (08:22→19:50)
--- NOTE | 2022-06-28 08:24 | Hospitalist Progress Note ---
Date of Service June 28, 2022 Assessment & Plan (1) Atrial fibrillation with rapid ventricular response: Plan: This is a 71 y/o female with PAF who is on chronic AC with Eliquis presented to the ED this morning with recurrence of atrial fibrillation with RVR. Also noted to have hypomagnesemia. Pt received Lopressor x 3 doses, diltiazem x 1 dose in the ED with improved in rate from 140s to 100-110s. ED provider spoke with on- call paving stone installer who recommended additional 50 mg of oral metoprolol - Admitted to PCU for monitoring, rate control - Consulted cardiology - Suspect elevated troponin due to demand from RVR - Labs in AM - CBC, BMP, Mag - Continue Eliquis for anticoagulation - Started on sotalol by cardiology- converted to sinus rhythm - monitor ECG daily - poss. 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 May need to adjust levothyroxine dose vs. repeat in 2-4 wks as outpatient. (7) Polyneuropathy: Plan Continue other home medications as appropriate. Code Status: Full code DVT Prophylaxis: on Eliquis Admission and Anticipated Discharge Date Admission Date: June 26, 2022 Subjective Pt seen in follow up of chest pain and palpitations secondary to afib w/RVR Patient feels much better today. Palpitations resolved. Breathing has improved. No further chest bang. Started on sotalol by cardiology. Converted to sinus. Sitting in chair in NAD. No dizziness, or lightheadedness. Pt's daughter and her two small children visiting. Review of Systems Review of Systems: All systems reviewed & are unremarkable except as noted in Subjective Physical Exam Physical Exam: Constitutional: L obese F in no acut e distress Eyes: + anicteric sclera e Neck: thick, supple Respiratory: no respiratory dis tress and no labor ed breathing Ausc ultation: lungs cl ear to auscultatio n bilaterally; no rales, no rhonchi and no wheezes Cardiovascular:L rrr Gastrointestinal ( Abdomen): normal bowel sound s; soft, nontender , obese Musculoskeletal: Head/Neck/Chest: n ormocephalic, head atraumatic and ne ck supple Skin: warm, dry Neurologic: speech fluent, no facial asymmetry, moves all extremit ies Psychiatric: A+Ox3, euthymic af fect Results & Data Results & Data Vital Signs (Past 12 Hours) Vital Signs Temp Pulse Pulse Resp BP Pulse Ox O2 Del Method 06/28/22 08:12 36.5 C 69 18 117/77 97 Room Air 06/28/22 07:09 68 06/28/22 02:49 36.6 C 70 18 115/74 98 Room Air 06/27/22 23:26 36.5 C 70 18 124/79 96 Room Air 06/27/22 22:52 69 Laboratory Results 06/28/22 06/28/22 06/28/22 Range/Units 08:10 06:02 06:02 WBC 6.92 (4.8-10.8) K/ul RBC 3.96 L (4.20-5.40) M/uL Hgb 11.9 L (12.0-16.0) g/dl Hct 34.6 L (37.0-47.0) % MCV 87.4 (80.0-100.0) fL MCH 30.1 (25.0-34.0) pg MCHC 34.4 (32.0-36.0) g/dL RDW Std Deviation 42.8 (36.4-46.3) fL RDW Coeff of Devendra 13.4 (11.5-14.5) % Plt Count 254 (130-400) K/uL MPV 9.2 L (9.4-12.4) fL Sodium 138 (136-145) mmol/L Potassium 3.9 (3.5-5.1) mmol/L Chloride 108 H (98-107) mmol/L Carbon Dioxide 23 (21-32) mmol/L Anion Gap 7 (3-11) BUN 19 (6-23) mg/dl Creatinine 0.77 (0.6-1.2) mg/dl Est Cr Clr Drug Dosing 83.0 ml/min Est GFR ( Amer) 90.0 ml/min Est GFR (Non-Af Amer) 77.7 ml/min BUN/Creatinine Ratio 24.7 H (10-20) Glucose 98 (70-99(Fasting)) mg/dl POC Glucose 138 H (70-99) mg/dl Calcium 8.5 L (8.6-10.3) mg/dl Phosphorus 2.5 (2.5-4.9) mg/dl Magnesium 1.6 L (1.7-2.4) mg/dl Medications Administered Current Inpatient Medications Acetaminophen (Acetaminophen 325 Mg Tab) 650 mg PO Q4H PRN PRN Reason: Pain or Fever Stop: 07/26/22 11:37 Last Admin: 06/27/22 06:12 Dose: 650 mg Apixaban (Apixaban 5 Mg Tablet) 5 mg PO BID [facility] Stop: 07/26/22 21:29 Last Admin: 06/28/22 08:20 Dose: 5 mg Dextrose (Dextrose 50% 50 Ml Syringe) 25 - 50 ml IV UD PRN; Protocol PRN Reason: Hypoglycemia Protocol Stop: 07/28/22 00:42 Glucagon (Glucagon For Inj 1 Mg Vial) 1 mg SQ UD PRN; Protocol PRN Reason: Hypoglycemia Protocol Stop: 07/28/22 00:42 Glucose (Glucose 10 Tab/Tube) 4 - 8 tab PO UD PRN; Protocol PRN Reason: Hypoglycemia Treatment Stop: 07/28/22 00:42 Glucose (Glucose 40% Gel 15 Gm Tube) 15 - 30 gm PO UD PRN; Protocol PRN Reason: Hypoglycemia Protocol Stop: 07/28/22 00:42 Insulin Aspart (Insulin Aspart Per Unit Charge) 0 units SC ACHS [facility] Stop: 07/28/22 07:29 Levothyroxine Sodium (Levothyroxine Sodium 125 Mcg Tablet) 125 mcg PO DAILYBB [facility] Stop: 07/27/22 06:29 Last Admin: 06/28/22 05:40 Dose: 125 mcg Magnesium Oxide (Magnesium Oxide 400 Mg Tab) 400 mg PO QPM [facility] Stop: 07/27/22 20:59 Last Admin: 06/27/22 21:04 Dose: 400 mg Magnesium Oxide (Magnesium Oxide 400 Mg Tab) 400 mg PO QAM [facility] Stop: 07/27/22 09:29 Last Admin: 06/28/22 08:22 Dose: 400 mg Metoprolol Tartrate (Metoprolol Tartrate 25 Mg Tab) 25 mg PO BID [facility] Stop: 07/26/22 20:59 Last Admin: 06/28/22 08:21 Dose: 25 mg Miscellaneous (Carbohydrates For Hypoglycemia ) 15 - 30 gm PO UD PRN PRN Reason: Hypoglycemia Protocol Stop: 07/28/22 00:42 Multivitamins/Minerals (Cerovite Adv Formula Tab) 1 tab PO DAILY [facility] Stop: 07/27/22 08:59 Last Admin: 06/28/22 08:21 Dose: 1 tab Pantoprazole Sodium (Pantoprazole 40 Mg Tab) 40 mg PO DAILY [facility] Stop: 07/27/22 08:59 Last Admin: 06/28/22 08:20 Dose: 40 mg Potassium Chloride (Potassium Chloride Crtab 20 Meq Tabcr) 20 meq PO DAILY [facility] Stop: 07/27/22 08:59 Last Admin: 06/28/22 08:20 Dose: 20 meq Rosuvastatin Calcium (Rosuvastatin Calcium 5 Mg Tab) 5 mg PO DAILY [facility] Stop: 07/27/22 08:59 Last Admin: 06/28/22 08:20 Dose: 5 mg Sotalol HCl (Sotalol Hcl 80 Mg Tab) 80 mg PO BID [facility] Stop: 07/26/22 16:59 Last Admin: 06/28/22 08:20 Dose: 80 mg Vitamin D (Cholecalciferol 1,000 Units 25 Mcg Tab) 2,000 units PO DAILY [facility] Stop: 07/27/22 08:59 Last Admin: 06/28/22 08:20 Dose: 2,000 units
[2022-06-28] MEDS: INSULIN ASPART PER UNIT CHARGE SC SCH ×3 (08:32→17:03)
--- NOTE | 2022-06-28 11:38 | Cardiology Progress Note ---
Date of Service June 28, 2022 Assessment & Plan (1) Atrial fibrillation with rapid ventricular response: (2) Hypomagnesemia: (3) SVT (supraventricular tachycardia): (4) PVCs (premature ventricular contractions): Plan Presentation with symptomatic atrial fibrillation with a rapid ventricular response status post spontaneous conversion on 06/26/2022 at 2154 without clinical sequela Continue sotalol loading (80 mg BID) and lower dose metoprolol, 25 mg BID Maintain electrolytes. Supplement magnesium. Continue telemetry monitoring. Continue anticoagulation without interruption Anticipated date of discharge: 06/29/2022. Admission and Anticipated Discharge Date Admission Date: June 26, 2022 Supervising Physician Co-Signing Physician Notes 71-year-old female admitted with palpitations paroxysmal atrial fibrillation with rapid ventricular response. Converted to sinus rhythm 06/26/22. Metoprolol reduced to 25 mg twice daily. Currently receiving sotalol load, 80 mg twice daily. Feeling much better today. No chest discomfort or palpitations. Telemetry reveals sinus rhythm with PVCs. QTc unchanged per a.m. ECG. PE: VSS. General: NAD, awake alert and oriented. Heart: Regular rhythm, normal S1-S2. No murmur. Lungs: Clear bilateral, no rales, rhonchi, wheeze. Extremities: No edema. A/P: Agree with above PA-C history, physical exam, assessment and plan. Continue sotalol 80 mg twice daily with repeat ECG in a.m. approximately 2 hours after dose. Continue Eliquis 5 mg twice daily and metoprolol as ordered. Replace electrolytes as indicated. IV magnesium sulfate ordered. Possible discharge in a.m. pending review of ECG. Subjective Patient seen and examined. Chart, medications, and telemetry reviewed. Daughter Julieta Suarez and granddaughter at bedside. No complaints. No nausea. No palpitations. No chest pain or difficulty breathing. No peripheral edema. No dysuria. Stools are somewhat loose, without melena or hematochezia. Telemetry: Patient maintaining sinus rhythm since spontaneous conversion from atrial fibrillation on 06/26/2022 at 2154, without significant conversion pause. Atrial and ventricular ectopy observed including PVC's in bigeminy and couplets. Heart rates primarily in the 60's and 70's. Outpatient Zio monitor in February 2022 notable for occasional isolated SVEs, frequent isolated VEs (13.8% burden) including bigeminy, trigeminy, couplets, and triplets, frequent SVT, atrial flutter with variable AV block. EKG on 06/28/2022 at 05:37:04 revealed sinus rhythm at 66 bpm with frequent PVC's, LVH with QRS widening. QTc 473 ms. Review of Systems Review of Systems: Complete Review of Systems is as stated, negative, or noncontributory. Physical Exam Physical Exam: Examined in the bedside chair General: A&Ox3. NAD. HENT: Normocephalic. Atraumatic. Eyes: PER. Conjunctiva pink, sclera clear. Neck: No carotid bruits. No overt JVD. Heart: Regular with occasional ectopy. No murmur. Lungs: Clear to auscultation. Abdomen: +BS. Extremities: No clubbing, cyanosis, or significant edema. Limited neurological examination is without focal deficits. Results & Data Vital Signs (Past 12 Hours) Vital Signs Temp Pulse Pulse Resp BP Pulse Ox O2 Del Method 06/28/22 08:12 36.5 C 69 18 117/77 97 Room Air 06/28/22 07:09 68 06/28/22 02:49 36.6 C 70 18 115/74 98 Room Air Laboratory Results CBC 06/28/22 Range/Units 06:02 WBC 6.92 (4.8-10.8) K/ul RBC 3.96 L (4.20-5.40) M/uL Hgb 11.9 L (12.0-16.0) g/dl Hct 34.6 L (37.0-47.0) % Plt Count 254 (130-400) K/uL Comprehensive Metabolic Panel 06/28/22 Range/Units 06:02 Sodium 138 (136-145) mmol/L Potassium 3.9 (3.5-5.1) mmol/L Chloride 108 H (98-107) mmol/L Carbon Dioxide 23 (21-32) mmol/L BUN 19 (6-23) mg/dl Creatinine 0.77 (0.6-1.2) mg/dl Glucose 98 (70-99(Fasting)) mg/dl Calcium 8.5 L (8.6-10.3) mg/dl Intake and Output 06/27/22 06/28/22 06/28/22 22:59 06:59 14:59 Other: Weight 107.3 kg Weight Measurement Method Standing Scale
[2022-06-28] MEDS ORDERED: MAGNESIUM SULFATE / D5W 1 GM/100 ML BAG IV ONE (11:51)
--- NOTE | 2022-06-28 13:07 | Electrocardiogram Report ---
Test Reason : Blood Pressure : / mmHG Vent. Rate : 071 BPM Atrial Rate : 071 BPM P-R Int : 160 ms QRS Dur : 126 ms QT Int : 426 ms P-R-T Axes : -13 -23 051 degrees QTc Int : 462 ms Sinus rhythm with occasional Premature ventricular complexes and Fusion complexes Non-specific intra-ventricular conduction delay Abnormal ECG When compared with ECG of 26-JUN-2022 20:46, Fusion complexes are now Present T wave inversion no longer evident in Lateral leads Confirmed by Balbir Brown ([id number]) on 06/28/2022 1:07:22 PM Referred By: REFERRED SELF Confirmed By:Vance Brown
--- NOTE | 2022-06-28 13:20 | Electrocardiogram Report ---
Test Reason : Blood Pressure : / mmHG Vent. Rate : 066 BPM Atrial Rate : 066 BPM P-R Int : 180 ms QRS Dur : 124 ms QT Int : 452 ms P-R-T Axes : 075 -27 068 degrees QTc Int : 473 ms Sinus rhythm with frequent Premature ventricular complexes and Fusion complexes in a pattern of bigem iny Left ventricular hypertrophy with QRS widening Abnormal ECG When compared with ECG of 27-JUN-2022 10:54, (unconfirmed) No significant change was found Confirmed by Balbir Brown ([id number]) on 06/28/2022 1:20:36 PM Referred By: REFERRED SELF Confirmed By:Vance Brown
[2022-06-29] MEDS: INSULIN ASPART PER UNIT CHARGE SC SCH ×3 (03:32→12:23)
[2022-06-29 06:30] LABS: Calcium 9.1 mg/dl (8.6-10.3); Magnesium 1.7 mg/dl (1.7-2.4)
[2022-06-29 06:36] LABS: BUN Creatinine Ratio 22.8 (10-20); Creatinine Clr Calc Pharmacy 80.8 ml/min; Est GFR (African American) 87.3 ml/min; Est GFR (Non-African American) 75.3 ml/min
[2022-06-29] MEDS: LEVOTHYROXINE SODIUM 125 MCG TABLET PO SCH (06:58)
[2022-06-29] MEDS: SOTALOL HCL 80 MG TAB PO SCH (07:46)
[2022-06-29] MEDS: ROSUVASTATIN CALCIUM 5 MG TAB PO SCH (07:46)
[2022-06-29] MEDS: POTASSIUM CHLORIDE CRTAB 20 MEQ TABCR PO SCH (07:46)
[2022-06-29] MEDS: CHOLECALCIFEROL 1,000 UNITS 25 MCG TAB PO SCH (07:46)
[2022-06-29] MEDS: CEROVITE ADV FORMULA TAB PO SCH (07:46)
[2022-06-29] MEDS: APIXABAN 5 MG TABLET PO SCH (07:46)
[2022-06-29] MEDS: PANTOprazole 40 MG TAB PO SCH (07:46)
[2022-06-29] MEDS: METOPROLOL TARTRATE 25 MG TAB PO SCH (07:47)
[2022-06-29] MEDS: MAGNESIUM OXIDE 400 MG TAB PO SCH (07:50)
--- NOTE | 2022-06-29 10:22 | Electrocardiogram Report ---
Test Reason : Blood Pressure : / mmHG Vent. Rate : 071 BPM Atrial Rate : 071 BPM P-R Int : 162 ms QRS Dur : 126 ms QT Int : 454 ms P-R-T Axes : -17 -27 064 degrees QTc Int : 493 ms Poor data quality, interpretation may be adversely affected Sinus rhythm with frequent Premature ventricular complexes Left ventricular hypertrophy with QRS widening Abnormal ECG When compared with ECG of 28-JUN-2022 05:37, Fusion complexes are no longer Present Confirmed by Balbir Brown ([id number]) on 06/29/2022 10:22:42 AM Referred By: REFERRED SELF Confirmed By:Vance Brown
--- NOTE | 2022-06-29 11:11 | Cardiology Progress Note ---
Date of Service June 29, 2022 Assessment & Plan (1) Atrial fibrillation with rapid ventricular response: (2) Hypomagnesemia: (3) SVT (supraventricular tachycardia): (4) PVCs (premature ventricular contractions): Plan Presentation with symptomatic atrial fibrillation with a rapid ventricular response status post spontaneous conversion on 06/26/2022 at 2154 without clinical sequela EKG acceptable following inpatient sotalol load Continue sotalol at 80 mg BID Continue metoprolol at the reduced dose of 25 mg twice a day Continue Eliquis anticoagulation without interruption OK for discharge from a cardiology standpoint. Outpatient cardiology follow-up with Ms. Sheila NELSON in 2-3 weeks. Admission and Anticipated Discharge Date Admission Date: June 26, 2022 Supervising Physician Co-Signing Physician Notes 71-year-old female admitted with palpitations paroxysmal atrial fibrillation with rapid ventricular response. Converted to sinus rhythm 06/26/22. Metoprolol reduced to 25 mg twice daily. Loaded with sotalol. Feeling much better today. No chest discomfort or palpitations. Telemetry reveals sinus rhythm with PVCs. PE: VSS. General: NAD, awake alert and oriented. Heart: Regular rhythm, normal S1-S2. No murmur. Lungs: Clear bilateral, no rales, rhonchi, wheeze. Extremities: No edema. A/P: Agree with above PA-C history, physical exam, assessment and plan. Continue sotalol 80 mg twice daily, metoprolol 25 mg twice daily, and Eliquis 5 mg twice daily. Patient may be discharged home. Outpatient cardiology follow- up in 2 to 3 weeks. Subjective Patient seen and examined. Chart, medications, and telemetry reviewed. Feeling okay. EKG this morning reveals sinus rhythm at 71 bpm with frequent premature ventricular complexes, left ventricular hypertrophy with QRS widening. QTc 473 ms. Continuous manager monitoring reveals sinus rhythm with atrial and ventricular ectopy, heart rates in the 60s and 70s. Ectopy burden appears mildly improved this morning compared to prior. Patient maintaining sinus rhythm since spontaneous conversion from atrial fibrillation on 06/26/2022 at 2154 Outpatient Zio monitor in February 2022 notable for occasional isolated SVEs, frequent isolated VEs (13.8% burden) including bigeminy, trigeminy, couplets, and triplets, frequent SVT, atrial flutter with variable AV block. May 01, 2022 Lexiscan Interpretation Summary (as per Dr. Ken): Gated SPECT imaging reveals normal myocardial thickening and wall motion. The left ventricular ejection fraction was calculated to be 67%. Lexiscan nuclear cardiac stress test negative for ischemia. May 01, 2022 TTE Interpretation Summary (as per Dr. Ken): The examination is adequate to evaluate the referral indication. Requested as a limited study. The qualitative LV ejection fraction is 60-64% (normal). The LV wall thickness is mildly increased (concentric). The left ventricular cavity size is normal. The left ventricular wall motion is normal. Review of Systems Review of Systems: Complete Review of Systems is as stated, negative, or noncontributory. Physical Exam Physical Exam: General: A&Ox3. NAD. HENT: Normocephalic. Atraumatic. Eyes: PER. Conjunctiva pink, sclera clear. Neck: No carotid bruits. No overt JVD. Heart: Regular with occasional ectopy. No murmur. Lungs: Clear to auscultation. Abdomen: +BS. Extremities: No clubbing, cyanosis, or significant edema. Limited neurological examination is without focal deficits. Results & Data Vital Signs (Past 12 Hours) Vital Signs Temp Pulse Resp BP Pulse Ox O2 Del Method 06/29/22 07:43 36.6 C 73 18 126/80 98 Room Air 06/29/22 04:45 36.6 C 74 16 157/65 H 97 Room Air 06/28/22 23:43 36.9 C 62 18 110/72 96 Room Air Laboratory Results Comprehensive Metabolic Panel 06/29/22 Range/Units 05:41 Sodium 138 (136-145) mmol/L Potassium 4.0 (3.5-5.1) mmol/L Chloride 108 H (98-107) mmol/L Carbon Dioxide 23 (21-32) mmol/L BUN 18 (6-23) mg/dl Creatinine 0.79 (0.6-1.2) mg/dl Glucose 114 H (70-99(Fasting)) mg/dl Calcium 9.1 (8.6-10.3) mg/dl Intake and Output 06/28/22 06/29/22 06/29/22 22:59 06:59 14:59 Intake Total 100 / 340 240 / 340 Balance 100 / 340 240 / 340 Intake: IV 100 / 100 Magnesium Sulfate / D5w 1 gm In 100 / 100 100 ml @ 50 mls/hr IV ONE ONE Rx#:[id number] Oral 240 / 240 Other: Weight 107 kg Weight Measurement Method Standing Scale
--- NOTE | 2022-06-29 12:39 | Discharge Summary ---
Date of Service June 29, 2022 Admission HPI Per Admitting Provider This is a 71 y/o female with DM2, PAF, HTN, GERD, hypothyroidism, hypercholesterolemia, open-angle glaucoma, and osteoporosis who presented to the ED today with palpitations. Pt was admitted to [facility] 03/01/22-03/03/22 with new onset atrial fibrillation with RVR after routine outpatient colonscopy. Found to have hypomagnesemia, which was thought related to her colonoscopy prep, and was started on Cardizem gtt. Converted to NSR on 03/02, metoprolol increased, and Eliquis started for AC. Pt most recently saw outpatient cardiology on 06/09/22 and was noted to be having episodes of PAF that were essentially asympto matic. She was instructed to take an extra dose of metoprolol as needed for episodes of afib with high HR but to come to the ED if it did not resolve within a few hours. Current episode of symptoms started two days ago with nausea and malaise but didn't check her HR/smart watch. Yesterday, she noted palpitations and ongoing nausea - watch revealed that she was in afib with elevated HR so she took an extra metoprolol. She noted some transient improvement of her rate so decided to try to wait it out at home. This morning, when she woke up, she noted ongoing palpitations and mild left chest discomfort, continued nausea and fatigue so decided to come to the ED for evaluation. In the ED, she was noted to be in afib with RVR - rate in the 140s. She has received Lopressor x 3 doses, diltiazem x 1 dose with improvement in her rate from 140s to 100-110. ED provider spoke with cardiology on-call who recommended admission, additional dose of oral metoprolol. Labs again revealed hypomagnesemia, which ED has started repletion for. Pt denies vomiting or significant diarrhea. No fevers or chills. Did have sweats yesterday and this morning. Admission Exam Per Admitting Provider Constitutional: well developed and well nourished; no acute distress Eyes: + anicteric sclerae Neck: trachea midline Respiratory: no respiratory distress and no labored breathing Auscultation: lungs clear to auscultation bilaterally; no rales, no rhonchi and no wheezes Cardiovascular: Rate/Rhythm: + tachycardic and + irregularly irregular Vessels: dorsalis pedis pulses present and radial pulses present Extremities: no pedal edema Gastrointestinal (Abdomen): Inspection/Auscultation: normal bowel sounds; abdomen not distended Percussion/Palpation: abdomen soft Musculoskeletal: Head/Neck/Chest: normocephalic, head atraumatic and neck supple Skin: no jaundice Neurologic: moves all extremities; no focal motor deficits and not confused Psychiatric: A+Ox3, euthymic affect Principal Diagnosis Atrial Fibrillation with RVR Discharge Exam General: Alert, oriented. No acute distress Skin: No noted rashes or bruises Psych: Appropriate mood and affect Neuro: No gross deficits HEENT: NC/AT CV: Irregular rhythm Resp: Breath sounds clear bilaterally, no increased effort of breathing. No crackles/rhonchi/rales. Abdomen: Soft, nontender. No guarding. No organomegaly appreciated. Extremities: Trace fluid in lower extremities bilaterally. Discharge Data Allergies Allergy/AdvReac Type Severity Reaction Status Date / Time amlodipine [From [facility]] Allergy Intermediate Palpitation Verified 03/01/22 07:47 s olmesartan Allergy Intermediate lips face Verified 03/01/22 07:47 and fingers swollen rosiglitazone Allergy Unknown "swelling" Verified 06/26/22 21:20 Consultations 06/26/22 09:52 ED Decision to Admit Stat 06/26/22 11:38 Consult Cardiology Routine Hospital Course (1) Atrial fibrillation with rapid ventricular response: 71 y/o female with Hx of paroxysmal atrial fibrillation, on chronic anticoagulation with Eliquis admitted with atrial fibrillation with RVR. Pt received Lopressor x 3 doses, diltiazem x 1 dose in the ED. Cardiology consulted, achieved rate control during her stay with sotalol 80mg BID taken with metoprolol 25mg BID. Eliquis 5mg BID was continued for anticoagulation. One elevated troponin, suspected due to demand from RVR. Was wnl on last check. Noted hypomagnesemia was repleted. Discharged with new dose of metoprolol tartrate 25mg BID, sotalol 80mg BID and advised to continue with Eliquis 5mg BID. Close cardiology and PCP follow up as scheduled. Continue home medications for her other chronic medical conditions with pcp followup. 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: ISS while hospitalized (4) GERD (gastroesophageal reflux disease): Continue home meds (5) Hypertension: Continue home meds (6) Hypothyroidism: Continue home meds (7) Polyneuropathy: Continue home meds Total Time Total Time Spent Total Time Spent (In Minutes): more than 30 minutes Discharge Plan Discharge Items Patient Disposition: Home - Self-Care Reason For Visit: AFIB WITH RVR, HYPOMAG Discharge Diagnosis: Atrial Fibrillation with RVR Activity: Per Instructions section Non-emergency contact: Primary Care Provider and Community Pharmacist Call non-emergency contact if: you have any medication questions and your symptoms worsen Follow-up/Referrals: Kenneth Arvizu DO [Primary Care Provider] - (Date & Time 07/03/2022 1:30 PM[facility] Pharmacist [facility] [address] [place] [address] Date & Time 07/03/2022 2:00 PM[facility] ) Zahra Sosa CRNP [Nurse Practitioner] - (The cardiology office will call you with an appointment time. ) Diet: Carb Consistent or DM2 and Heart Healthy Addtl Attending Provider Instructions: You were admitted to the hospital because your heart rate was not controlled. Your diagnosis was atrial fibrillation with rapid ventricular response. You were seen and treated by cardiology and your heart rate is now controlled. They recommend that it is ok for you to go home but they advise that you continue with the following medications: Sotalol 80mg- Take 1 pill by mouth twice a day Metoprolol Tartrate 25mg- Take 1 pill by mouth twice a day Eliquis 5mg - Take 1 pill by mouth twice a day Cardiology would like to follow up with you in 2-3 weeks. We recommend following up with your primary care provider Pending Studies at Discharge: No Stand-Alone Forms: My [employer], Smoking Cessation Medications and DC Order Prescriptions: New metoprolol tartrate 25 mg Tablet 25 mg PO BID Qty: 60 0RF sotalol 80 mg Tablet 80 mg PO BID Qty: 60 0RF Eliquis 5 mg Tablet 5 mg PO BID Qty: 60 1RF Continued (DME) OneTouch Verio test strips Strip See Rx Instructions .ROUTE .MEDSUPPLY Qty: 200 3RF Rx Instructions: Test blood sugar twice daily pantoprazole 40 mg tablet,delayed release (DR/EC) 40 mg PO DAILY Qty: 90 3RF Patient Comments: QAM levothyroxine 125 mcg tablet 125 mcg PO DAILY Qty: 90 0RF (DME) blood-glucose meter [OneTouch Verio IQ Meter] Kit See Rx Instructions .Route Qty: 1 0RF Rx Instructions: Check blood glucose once daily (DME) lancets [OneTouch UltraSoft Lancets] Misc See Rx Instructions .ROUTE .MEDSUPPLY Qty: 200 3RF Rx Instructions: Test blood sugar twice daily glimepiride 4 mg tablet 4 mg PO BID Patient Comments: QAM acetaminophen [Tylenol Extra Strength] 500 mg Tablet 500 mg PO Q6H PRN (Reason: Pain) metformin 500 mg Tablet Extended Release 24 Hr 500 mg PO QAM metformin 500 mg tablet extended release 24 hr 1,000 mg PO QPM rosuvastatin 5 mg Tablet 5 mg PO DAILY cholecalciferol (vitamin D3) [Vitamin D3] 50 mcg (2,000 unit) Capsule 50 mcg PO DAILY potassium chloride 20 mEq Tablet Extended Release 20 meq PO DAILY PreserVision AREDS 2 Plus MV 200 mcg-15 mcg- 5 mg-1 mg Capsule 1 cap PO BID magnesium oxide 400 mg (241.3 mg magnesium) tablet 400 mg PO QPM Victoza 3-Sudhir 0.6 mg/0.1 mL (18 mg/3 mL) Pen Injector 1.8 mg SUBCUT QAM Macular Health Formula 5-1-7.5 mg Capsule 1 cap PO QAM Discontinued Eliquis 5 mg tablet 5 mg PO BID Qty: 60 0RF metoprolol tartrate 50 mg Tablet 50 mg PO BID Discharge Orders: Discharge Order (Routine); Ordered 06/29/22 Ordered By: Jess Jesus/Other Patient Handouts: AFib Dc Admission Data Admit Date/Time: 06/26/22 09:56 Attending Provider: Jess Slaughter Admit Provider: Parviz Patricio Primary Care Provider: Kenneth Arvizu Other Providers: Parviz Patricio ; Luis Alberto Srinivasan ; Kristopher Cruz
--- NOTE | 2022-06-30 17:51 | Electrocardiogram Report ---
Test Reason : Blood Pressure : / mmHG Vent. Rate : 071 BPM Atrial Rate : 071 BPM P-R Int : 170 ms QRS Dur : 128 ms QT Int : 436 ms P-R-T Axes : 012 -27 052 degrees QTc Int : 473 ms Sinus rhythm with frequent Premature ventricular complexes Left ventricular hypertrophy with QRS widening Abnormal ECG When compared with ECG of 29-JUN-2022 08:44, No significant change was found Confirmed by Balbir Brown ([id number]) on 06/30/2022 5:51:08 PM Referred By: REFERRED SELF Confirmed By:Vance Brown
--- NOTE | 2022-06-30 20:01 | Electrocardiogram Report ---
Test Reason : Blood Pressure : / mmHG Vent. Rate : 157 BPM Atrial Rate : 159 BPM P-R Int : 000 ms QRS Dur : 118 ms QT Int : 310 ms P-R-T Axes : 000 -30 129 degrees QTc Int : 501 ms Poor data quality, interpretation may be adversely affected Atrial fibrillation with rapid ventricular response with premature ventricular or aberrantly conducte d complexes Left axis deviation Left ventricular hypertrophy with QRS widening Marked ST abnormality, possible inferolateral subendocardial injury Abnormal ECG Confirmed by Balbir Brown ([id number]) on 06/30/2022 6:14:29 PM Referred By: REFERRED SELF Confirmed By:Vance Brown
--- NOTE | 2022-06-30 20:01 | Electrocardiogram Report ---
Test Reason : Blood Pressure : / mmHG Vent. Rate : 101 BPM Atrial Rate : 122 BPM P-R Int : 000 ms QRS Dur : 122 ms QT Int : 358 ms P-R-T Axes : 000 -29 117 degrees QTc Int : 464 ms Atrial fibrillation with rapid ventricular response with premature ventricular or aberrantly conducte d complexes Left ventricular hypertrophy with QRS widening Abnormal ECG When compared with ECG of 26-JUN-2022 06:45, (unconfirmed) Vent. rate has decreased BY [address] no longer depressed in Inferior leads ST no longer depressed in Lateral leads Confirmed by Balbir Brown ([id number]) on 06/30/2022 6:14:39 PM Referred By: REFERRED SELF Confirmed By:Vance Brown
== END 2022-06-29 13:18 | disposition home or self-care (01) | DRG 309 ==
LOC: ED 06:30 → SUATTDRO 09:56 → 2S 09:56